=== PATIENT | female | born 1935 | race Caucasian/White ===

== ENCOUNTER → 2016-06-07 | Outpatient (CLI) | payer MEDICARE, OTHER ==
[2016-06-07 09:54] LABS: ALANINE AMINOTRANSFERASE 23 U/L (9-52); ALBUMIN 4.1 g/dL (3.5-5.0); ALKALINE PHOSPHATASE 60 U/L (38-126); ANION GAP 13 (5-19); ASPARTATE AMINO TRANSFERASE 25 U/L (14-36); BILIRUBIN,TOTAL 0.6 mg/dL (0.2-1.3); BLOOD UREA NITROGEN 27 mg/dL (7-20); CALCIUM 9.4 mg/dL (8.4-10.2); CARBON DIOXIDE 23 mmol/L (22-30); CHLORIDE 106 mmol/L (98-107); CHOLESTEROL 159.12 mg/dL (0-200); CREATININE RESULT 1.66 mg/dL (0.52-1.25); Direct HDL 33 mg/dL (>40); GLUCOSE 99 mg/dL (75-110); POTASSIUM 4.8 mmol/L (3.6-5.0); SODIUM 142.3 mmol/L (137-145); TOTAL PROTEIN 6.6 g/dL (6.3-8.2); TRIGLYCERIDES 299 mg/dL (<150)
[2016-06-07 10:05] LABS: DIRECT LDL 61 mg/dL (<100)
[2016-06-07 10:07] LABS: VLDL CHOLESTEROL 59.8 mg/dL (10-31)
== END ==
LOC: OD 08:20
PROVIDERS: ATTEND Internal Medicine
DX: I48.0 Paroxysmal atrial fibrillation (principal); Z95.1 Presence of aortocoronary bypass graft; I34.0 Nonrheumatic mitral (valve) insufficiency; E78.4 Other hyperlipidemia; I36.1 Nonrheumatic tricuspid (valve) insufficiency; J45.998 Other asthma; J44.9 Chronic obstructive pulmonary disease, unspecified; I12.9 Hypertensive chronic kidney disease with stage 1 through stage 4 chronic kidney disease, or unspecified chronic kidney disease; N18.9 Chronic kidney disease, unspecified; R01.1 Cardiac murmur, unspecified; D50.8 Other iron deficiency anemias; M10.9 Gout, unspecified; E03.9 Hypothyroidism, unspecified; Z79.899 Other long term (current) drug therapy
CPT/HCPCS: 36415; 80053; 80061

== ENCOUNTER → 2016-06-26 | Outpatient (CLI) | payer MEDICARE, OTHER ==
[2016-06-26 09:44] LABS: APPEARANCE,URINE CLEAR; BILIRUBIN,URINE NEGATIVE (NEGATIVE); GLUCOSE, URINE NEGATIVE (NEGATIVE); KETONES,URINE NEGATIVE (NEGATIVE); LEUKOCYTE ESTERASE,URINE SMALL (NEGATIVE); NITRITE,URINE NEGATIVE (NEGATIVE); PROTEIN,URINE NEGATIVE (NEGATIVE); URINE SPECIFIC GRAVITY 1.011; UROBILINOGEN,URINE NEGATIVE mg/dL (<2.0)
[2016-06-26 09:54] LABS: HEMATOCRIT 34.2 % (36.0-47.0); HEMOGLOBIN 10.8 g/dL (12.0-15.5); HGB HCT DIFFERENCE -1.8; MEAN CORPUSCULAR HEMOGLOBIN 28.8 pg (27.0-33.4); MEAN CORPUSCULAR HGB CONC 31.5 g/dL (32.0-36.0); MEAN CORPUSCULAR VOLUME 91 fl (80-97); RED BLOOD COUNT 3.75 10^6/uL (3.72-5.28); WHITE BLOOD COUNT 4.2 10^3/uL (4.0-10.5)
[2016-06-26 10:25] LABS: ANION GAP 13 (5-19); BLOOD UREA NITROGEN 28 mg/dL (7-20); CALCIUM 9.5 mg/dL (8.4-10.2); CARBON DIOXIDE 25 mmol/L (22-30); CHLORIDE 105 mmol/L (98-107); CREATININE RESULT 1.67 mg/dL (0.52-1.25); GLUCOSE 98 mg/dL (75-110); POTASSIUM 4.5 mmol/L (3.6-5.0)
== END ==
LOC: OD 08:20
PROVIDERS: ATTEND Internal Medicine Nephrology
DX: I12.9 Hypertensive chronic kidney disease with stage 1 through stage 4 chronic kidney disease, or unspecified chronic kidney disease (principal); N18.3 Chronic kidney disease, stage 3 (moderate); E87.5 Hyperkalemia
CPT/HCPCS: 36415; 80048; 81001; 85027

== ENCOUNTER → 2016-07-26 | Outpatient (CLI) | payer MEDICARE, OTHER ==
[2016-07-26 10:37] LABS: HEMATOCRIT 31.7 % (36.0-47.0); HEMOGLOBIN 10.6 g/dL (12.0-15.5); HGB HCT DIFFERENCE 0.1; MEAN CORPUSCULAR HEMOGLOBIN 29.6 pg (27.0-33.4); MEAN CORPUSCULAR HGB CONC 33.4 g/dL (32.0-36.0); MEAN CORPUSCULAR VOLUME 88 fl (80-97); RED BLOOD COUNT 3.58 10^6/uL (3.72-5.28); RED CELL DISTRIBUTION WIDTH 16.1 % (11.5-14.0); WHITE BLOOD COUNT 4.8 10^3/uL (4.0-10.5)
[2016-07-26 10:41] LABS: MAGNESIUM 2.1 mg/dL (1.6-2.3); PHOSPHORUS 4.4 mg/dL (2.5-4.5)
[2016-07-26 11:12] LABS: THYROID STIMULATING HORMONE 2.96 uIU/mL (0.47-4.68)
[2016-07-27 08:36] LABS: PTH INTACT 78 pg/mL (15-65)
[2016-07-27 15:38] LABS: A/G RATIO 1.2 (0.7-1.7); ALBUMIN 2 3.5 g/dL (2.9-4.4); ALPHA-1-GLOBULIN 2 0.2 g/dL (0.0-0.4); GAMMA GLOBULIN 0.9 g/dL (0.4-1.8); PROTEIN TOTAL SERUM 6.4 g/dL (6.0-8.5)
== END ==
LOC: OD 08:21
PROVIDERS: ATTEND Internal Medicine Nephrology
DX: E03.9 Hypothyroidism, unspecified (principal); N18.3 Chronic kidney disease, stage 3 (moderate); D64.9 Anemia, unspecified; E87.5 Hyperkalemia; M10.9 Gout, unspecified
CPT/HCPCS: 36415; 82728; 83540; 83550; 83735; 83970; 84100; 84165; 84439; 84443; 85027

== ENCOUNTER → 2016-12-04 | Outpatient (CLI) | payer MEDICARE, OTHER ==
[2016-12-04 09:15] LABS: HEMATOCRIT 36.5 % (36.0-47.0); HEMOGLOBIN 12.1 g/dL (12.0-15.5); HGB HCT DIFFERENCE -0.2; MEAN CORPUSCULAR HEMOGLOBIN 30.5 pg (27.0-33.4); MEAN CORPUSCULAR HGB CONC 33.2 g/dL (32.0-36.0); MEAN CORPUSCULAR VOLUME 92 fl (80-97); RED BLOOD COUNT 3.97 10^6/uL (3.72-5.28); WHITE BLOOD COUNT 5.1 10^3/uL (4.0-10.5)
[2016-12-04 09:25] LABS: APPEARANCE,URINE CLEAR; BILIRUBIN,URINE NEGATIVE (NEGATIVE); GLUCOSE, URINE NEGATIVE (NEGATIVE); KETONES,URINE NEGATIVE (NEGATIVE); LEUKOCYTE ESTERASE,URINE NEGATIVE (NEGATIVE); NITRITE,URINE NEGATIVE (NEGATIVE); PROTEIN,URINE NEGATIVE (NEGATIVE); UROBILINOGEN,URINE NEGATIVE mg/dL (<2.0)
[2016-12-04 09:31] LABS: CHOLESTEROL 147.55 mg/dL (0-200); Direct HDL 31 mg/dL (>40); TRIGLYCERIDES 278 mg/dL (<150)
[2016-12-04 09:32] LABS: ANION GAP 12 (5-19); BLOOD UREA NITROGEN 38 mg/dL (7-20); CALCIUM 9.6 mg/dL (8.4-10.2); CARBON DIOXIDE 23 mmol/L (22-30); CHLORIDE 106 mmol/L (98-107); CREATININE RESULT 1.88 mg/dL (0.52-1.25); GLUCOSE 105 mg/dL (75-110); POTASSIUM 4.9 mmol/L (3.6-5.0)
[2016-12-04 09:42] LABS: DIRECT LDL 52 mg/dL (<100)
[2016-12-04 09:49] LABS: VLDL CHOLESTEROL 55.6 mg/dL (10-31)
== END ==
LOC: OD 08:05
PROVIDERS: ATTEND Internal Medicine Nephrology
DX: I12.9 Hypertensive chronic kidney disease with stage 1 through stage 4 chronic kidney disease, or unspecified chronic kidney disease (principal); N18.3 Chronic kidney disease, stage 3 (moderate); M10.00 Idiopathic gout, unspecified site; D64.9 Anemia, unspecified; I48.0 Paroxysmal atrial fibrillation; Z95.1 Presence of aortocoronary bypass graft; I25.5 Ischemic cardiomyopathy; I34.0 Nonrheumatic mitral (valve) insufficiency; D50.8 Other iron deficiency anemias; E03.9 Hypothyroidism, unspecified; E78.5 Hyperlipidemia, unspecified; I36.1 Nonrheumatic tricuspid (valve) insufficiency; J45.998 Other asthma; J44.9 Chronic obstructive pulmonary disease, unspecified; M10.9 Gout, unspecified; Z79.899 Other long term (current) drug therapy; R01.1 Cardiac murmur, unspecified
CPT/HCPCS: 36415; 80048; 80061; 81001; 85027

== ENCOUNTER → 2017-02-21 | Outpatient (CLI) | payer MEDICARE, OTHER ==
--- NOTE | 2017-02-21 17:05 | WOMENS IMAGING REPORT ---
EXAM DESCRIPTION: 3D SCREENING MAMMO BILAT COMPLETED DATE/TIME: 02/21/2017 11:20 am REASON FOR STUDY: SCREENING MAMMO Z12.31 ENCNTR SCREEN MAMMOGRAM FOR MALIGNANT NEOPLASM OF CARYL COMPARISON: Multiple since 2008 TECHNIQUE: Standard craniocaudal and mediolateral oblique views of each breast recorded using digita l acquisition and breast tomosynthesis. LIMITATIONS: None. FINDINGS: Findings present which are benign by mammographic criteria. No suspicious masses, calcifi cations or architectural distortion. Pertinent benign findings: Stable benign bilateral breast calcifications Read with the assistance of CAD. .[facility] - R2 Cenova Version 1.3 .[facility] - R2 Cenova Version 1.3 .[facility] - R2 Cenova Version 2.4 .[facility] [place] R2 Cenova Version 2.4 .[facility] - R2 Hollock Maker Version 9.2 Benign mammographic findings may include one or more of the following: Smooth masses, popcorn/rim/co arse calcifications, asymmetries, post-procedure changes, and lesions with long-standing stability. IMPRESSION: BENIGN MAMMOGRAPHIC FINDINGS. BIRADS 2 BREAST DENSITY: c. The breasts are heterogeneously dense, which may obscure small masses. BIRAD: 2 BENIGN FINDING(S) RECOMMENDATION: RECOMMENDATION: ROUTINE SCREENING Please continue yearly bilateral screening tomosynthesis in February 2018 COMMENT: The patient has been notified of the results by letter per SA requirements. Additional no tification policies are in place for contacting patient with suspicious or incomplete findings. Quality ID #[id number]: The [employer] recommends an annual screening mammogram for women aged 40 years or over. This facility utilizes a reminder system to ensure that all patients receive reminder letters, and/or direct phone calls for appointments. This includes reminders for routine scr eening mammograms, diagnostic mammograms, or other Breast Imaging Interventions when appropriate. Th is patient will be placed in the appropriate reminder system. The [employer] (ACR) has developed recommendations for screening MRI of the breast s in certain patient populations, to be used in conjunction with mammography. Breast MRI surveillanc e may be appropriate for women with more than 20% lifetime risk of developing breast cancer as deter mined by genetic testing, significant family history of the disease, or history of mantle radiation f or Hodgkins Disease. ACR Practice Guidelines 2008. DBT Technology DBT is a type of tomographic mammography. With conventional mammography, overlapping breast tissue ma y make lesions difficult to detect, even with good compression. DBT uses an x-ray tube that rotates a round the breast, taking images at different angles. These images are then combined to create thin sl ices of the breast that the radiologist can view as a 3D reconstruction. The [employer] unit can perform full-field digital mammograms (2D imaging); or DBT (3D imaging); or both, in a combination mode that quickly performs both the mammogram and the tomosynthesis scan while the breast is still compressed. PQRS 6045F: Fluoroscopic imaging is not utilized for breast tomosynthesis. TECHNICAL DOCUMENTATION: FINDING NUMBER: (1) ASSESSMENT: (1) JOB ID: [id number] [employer]- All Rights Reserved
== END ==
LOC: WI 10:53
PROVIDERS: ATTEND Family Medicine
DX: Z12.31 Encounter for screening mammogram for malignant neoplasm of breast (principal)
CPT/HCPCS: 77063; G0202; 77067

== ENCOUNTER → 2017-06-01 | Outpatient (CLI) | payer MEDICARE, OTHER ==
[2017-06-01 09:13] LABS: APPEARANCE,URINE CLEAR; BILIRUBIN,URINE NEGATIVE (NEGATIVE); COLOR,URINE YELLOW; GLUCOSE, URINE NEGATIVE (NEGATIVE); KETONES,URINE NEGATIVE (NEGATIVE); LEUKOCYTE ESTERASE,URINE NEGATIVE (NEGATIVE); NITRITE,URINE NEGATIVE (NEGATIVE); PROTEIN,URINE NEGATIVE (NEGATIVE); URINE SPECIFIC GRAVITY 1.008; UROBILINOGEN,URINE NEGATIVE mg/dL (<2.0)
[2017-06-01 09:35] LABS: ALANINE AMINOTRANSFERASE 27 U/L (9-52); ALKALINE PHOSPHATASE 76 U/L (38-126); ANION GAP 12 (5-19); ASPARTATE AMINO TRANSFERASE 28 U/L (14-36); BILIRUBIN,DIRECT 0.3 mg/dL (0.0-0.4); BILIRUBIN,TOTAL 0.5 mg/dL (0.2-1.3); BLOOD UREA NITROGEN 24 mg/dL (7-20); CALCIUM 9.8 mg/dL (8.4-10.2); CARBON DIOXIDE 26 mmol/L (22-30); CHLORIDE 105 mmol/L (98-107); CHOLESTEROL 139.56 mg/dL (0-200); GLUCOSE 103 mg/dL (75-110); POTASSIUM 4.6 mmol/L (3.6-5.0); SODIUM 143.3 mmol/L (137-145); TOTAL PROTEIN 6.5 g/dL (6.3-8.2); TRIGLYCERIDES 210 mg/dL (<150)
[2017-06-01 09:45] LABS: DIRECT LDL 59 mg/dL (<100)
[2017-06-01 10:03] LABS: ANION GAP 12 (5-19); BLOOD UREA NITROGEN 24 mg/dL (7-20); CALCIUM 9.8 mg/dL (8.4-10.2); CARBON DIOXIDE 26 mmol/L (22-30); CHLORIDE 105 mmol/L (98-107); GLUCOSE 103 mg/dL (75-110); POTASSIUM 4.6 mmol/L (3.6-5.0); SODIUM 143.3 mmol/L (137-145)
[2017-06-01 12:22] LABS: HEMATOCRIT 36.5 % (36.0-47.0); HEMOGLOBIN 12.2 g/dL (12.0-15.5); MEAN CORPUSCULAR HEMOGLOBIN 30.8 pg (27.0-33.4); MEAN CORPUSCULAR HGB CONC 33.3 g/dL (32.0-36.0); MEAN CORPUSCULAR VOLUME 93 fl (80-97); PLATELET COUNT 225 10^3/uL (150-450); RED BLOOD COUNT 3.95 10^6/uL (3.72-5.28); RED CELL DISTRIBUTION WIDTH 15.9 % (11.5-14.0); WHITE BLOOD COUNT 4.7 10^3/uL (4.0-10.5)
== END ==
LOC: OD 08:01
PROVIDERS: ATTEND Internal Medicine Nephrology
DX: I12.9 Hypertensive chronic kidney disease with stage 1 through stage 4 chronic kidney disease, or unspecified chronic kidney disease (principal); N18.3 Chronic kidney disease, stage 3 (moderate); D64.9 Anemia, unspecified; E03.9 Hypothyroidism, unspecified; E87.5 Hyperkalemia; E78.2 Mixed hyperlipidemia; M10.00 Idiopathic gout, unspecified site
CPT/HCPCS: 36415; 80048; 80053; 80061; 81001; 83036; 84443; 84550; 85027

== ENCOUNTER → 2017-08-07 | Outpatient (CLI) | payer MEDICARE, OTHER ==
--- NOTE | 2017-08-07 15:56 | XCELERA REPORT ---
[address] [address] Lower Extremity Arterial Evaluation Name: TY JJ Age: 81 yrs Gender: Female : 1935 Patient Status: Outpatient Patient Location: Study Date: 08/07/2017 01:53 PM Procedure: A color flow and duplex scan of the lower extremity arteries was performed bilaterally with velocity and waveform anaylsis. Ankle brachial indicies performed. Reason For Study: PVD Ordering Physician: DURAN QUICK Performed By: Linda Ventura Measurements and Calculations Right Left VACUUM CLOSING MACHINE OPERATOR PSV 181.6 167.6 cm/sec Prox PFA PSV -133.4 108.1 cm/sec Prox SFA PSV 133.4 110.0 cm/sec Mid SFA PSV -125.7 -88.2 cm/sec Dist SFA PSV -123.8 -115.2 cm/sec Prox Pop A PSV 65.2 68.4 cm/sec Dist VIELKA PSV 79.4 83.3 cm/sec Dist BULK SYSTEM OPERATOR PSV 63.6 91.0 cm/sec Roberth Pedis PSV 71.9 73.5 cm/sec Right Side Arterial Evaluation Normal velocity and triphasic waveforms noted from the Common Femoral artery to the infregeniculate vessels. Biphasic in the Deep Femoral artery. 0-19% stenosis at the Deep Femoral artery. Ankle Brachial index is 0.94. Left Side Arterial Evaluation Normal velocity and biphasic waveforms noted from the Common Femoral artery to the infrageniculate vessels. 0-19% stenosis at the inflow Aorto Femoral. Ankle Brachial index is 0.84. Interpretation Summary Mild hemodynamically significant lesions in the bilateral lower extremities, on duplex imaging, at rest. : DURAN QUICK [place]
== END ==
LOC: SP 13:34
PROVIDERS: ATTEND Family Medicine
DX: I73.9 Peripheral vascular disease, unspecified (principal); M79.671 Pain in right foot; M79.672 Pain in left foot
CPT/HCPCS: 93925

== ENCOUNTER → 2017-12-21 | Outpatient (CLI) | payer MEDICARE, OTHER ==
[2017-12-21 08:27] LABS: HEMATOCRIT 33.8 % (36.0-47.0); HEMOGLOBIN 11.5 g/dL (12.0-15.5); MEAN CORPUSCULAR HEMOGLOBIN 30.9 pg (27.0-33.4); MEAN CORPUSCULAR HGB CONC 34.1 g/dL (32.0-36.0); MEAN CORPUSCULAR VOLUME 91 fl (80-97); PLATELET COUNT 215 10^3/uL (150-450); RED BLOOD COUNT 3.74 10^6/uL (3.72-5.28); RED CELL DISTRIBUTION WIDTH 16.6 % (11.5-14.0); WHITE BLOOD COUNT 4.5 10^3/uL (4.0-10.5)
[2017-12-21 08:38] LABS: APPEARANCE,URINE CLEAR; BILIRUBIN,URINE NEGATIVE (NEGATIVE); COLOR,URINE STRAW; GLUCOSE, URINE NEGATIVE (NEGATIVE); KETONES,URINE NEGATIVE (NEGATIVE); LEUKOCYTE ESTERASE,URINE NEGATIVE (NEGATIVE); NITRITE,URINE NEGATIVE (NEGATIVE); PROTEIN,URINE NEGATIVE (NEGATIVE); URINE SPECIFIC GRAVITY 1.006; UROBILINOGEN,URINE NEGATIVE mg/dL (<2.0)
[2017-12-21 08:58] LABS: ANION GAP 11 (5-19); BLOOD UREA NITROGEN 30 mg/dL (7-20); CALCIUM 9.5 mg/dL (8.4-10.2); CARBON DIOXIDE 26 mmol/L (22-30); CHLORIDE 106 mmol/L (98-107); GLUCOSE 109 mg/dL (75-110); PHOSPHORUS 4.6 mg/dL (2.5-4.5); POTASSIUM 4.4 mmol/L (3.6-5.0); SODIUM 142.7 mmol/L (137-145)
== END ==
LOC: OD 07:58
PROVIDERS: ATTEND Physician Assistant Medical
DX: I12.9 Hypertensive chronic kidney disease with stage 1 through stage 4 chronic kidney disease, or unspecified chronic kidney disease (principal); N18.4 Chronic kidney disease, stage 4 (severe); E87.5 Hyperkalemia
CPT/HCPCS: 36415; 80048; 81001; 83970; 84100; 85027

== ENCOUNTER → 2018-03-04 | Outpatient (CLI) | payer MEDICARE, OTHER ==
--- NOTE | 2018-03-04 16:23 | WOMENS IMAGING REPORT ---
EXAM DESCRIPTION: 3D SCREENING MAMMO BILAT COMPLETED DATE/TIME: 03/04/2018 2:13 pm REASON FOR STUDY: BILATERAL SCREENING MAMMO 3D/Z12.31 Z12.31 ENCNTR SCREEN MAMMOGRAM FOR MALIGNANT NEOPLASM OF CARYL COMPARISON: [id number] TECHNIQUE: Standard craniocaudal and mediolateral oblique views of each breast recorded using digita l acquisition and breast tomosynthesis. LIMITATIONS: None. FINDINGS: No masses, calcifications or architectural distortion. No areas of suspicion. Read with the assistance of CAD. .[facility] - R2 Cenova Version 1.3 .[facility] Imaging - R2 Cenova Version 1.3 .[facility] - R2 Cenova Version 2.4 .[facility] - R2 Cenova Version 2.4 .[facility] - R2 Residential Roofer Version 9.2 IMPRESSION: NORMAL MAMMOGRAM. BIRADS 1. BREAST DENSITY: c. The breasts are heterogeneously dense, which may obscure small masses. BIRAD: 1 NEGATIVE RECOMMENDATION: ROUTINE SCREENING COMMENT: The patient has been notified of the results by letter per SA requirements. Additional no tification policies are in place for contacting patient with suspicious or incomplete findings. Quality ID #[id number]: The [employer] recommends an annual screening mammogram for women aged 40 years or over. This facility utilizes a reminder system to ensure that all patients receive reminder letters, and/or direct phone calls for appointments. This includes reminders for routine scr eening mammograms, diagnostic mammograms, or other Breast Imaging Interventions when appropriate. Th is patient will be placed in the appropriate reminder system. The [employer] (ACR) has developed recommendations for screening MRI of the breast s in certain patient populations, to be used in conjunction with mammography. Breast MRI surveillanc e may be appropriate for women with more than 20% lifetime risk of developing breast cancer as deter mined by genetic testing, significant family history of the disease, or history of mantle radiation f or Hodgkins Disease. ACR Practice Guidelines 2008. DBT Technology DBT is a type of tomographic mammography. With conventional mammography, overlapping breast tissue ma y make lesions difficult to detect, even with good compression. DBT uses an x-ray tube that rotates a round the breast, taking images at different angles. These images are then combined to create thin sl ices of the breast that the radiologist can view as a 3D reconstruction. The [employer] unit can perform full-field digital mammograms (2D imaging); or DBT (3D imaging); or both, in a combination mode that quickly performs both the mammogram and the tomosynthesis scan while the breast is still compressed. PQRS 6045F: Fluoroscopic imaging is not utilized for breast tomosynthesis. TECHNICAL DOCUMENTATION: FINDING NUMBER: (1) ASSESSMENT: (1) JOB ID: [id number] [employer]- All Rights Reserved Reading location - IP/workstation name: [email or web address]-RR2
== END ==
LOC: WI 13:46
PROVIDERS: ATTEND Family Medicine
DX: Z12.31 Encounter for screening mammogram for malignant neoplasm of breast (principal)
CPT/HCPCS: 77063; 77067

== ENCOUNTER → 2018-06-03 | Outpatient (CLI) | payer MEDICARE, OTHER ==
[2018-06-03 08:45] LABS: HEMATOCRIT 33.6 % (36.0-47.0); HEMOGLOBIN 11.3 g/dL (12.0-15.5); MEAN CORPUSCULAR HEMOGLOBIN 30.7 pg (27.0-33.4); MEAN CORPUSCULAR HGB CONC 33.8 g/dL (32.0-36.0); MEAN CORPUSCULAR VOLUME 91 fl (80-97); PLATELET COUNT 220 10^3/uL (150-450); RED CELL DISTRIBUTION WIDTH 16.9 % (11.5-14.0); WHITE BLOOD COUNT 4.8 10^3/uL (4.0-10.5)
[2018-06-03 08:47] LABS: APPEARANCE,URINE CLEAR; BILIRUBIN,URINE NEGATIVE (NEGATIVE); COLOR,URINE YELLOW; GLUCOSE, URINE NEGATIVE (NEGATIVE); KETONES,URINE NEGATIVE (NEGATIVE); LEUKOCYTE ESTERASE,URINE NEGATIVE (NEGATIVE); NITRITE,URINE NEGATIVE (NEGATIVE); PROTEIN,URINE NEGATIVE (NEGATIVE); URINE SPECIFIC GRAVITY 1.011; UROBILINOGEN,URINE NEGATIVE mg/dL (<2.0)
[2018-06-03 09:35] LABS: ALANINE AMINOTRANSFERASE 30 U/L (9-52); ALBUMIN 3.9 g/dL (3.5-5.0); ALKALINE PHOSPHATASE 130 U/L (38-126); ANION GAP 8 (5-19); ASPARTATE AMINO TRANSFERASE 42 U/L (14-36); BILIRUBIN,DIRECT 0.3 mg/dL (0.0-0.4); BILIRUBIN,TOTAL 0.5 mg/dL (0.2-1.3); BLOOD UREA NITROGEN 33 mg/dL (7-20); CALCIUM 9.4 mg/dL (8.4-10.2); CARBON DIOXIDE 25 mmol/L (22-30); CHLORIDE 107 mmol/L (98-107); CHOLESTEROL 140.48 mg/dL (0-200); DIRECT LDL 69 mg/dL (<100); GLUCOSE 103 mg/dL (75-110); POTASSIUM 4.6 mmol/L (3.6-5.0); TOTAL PROTEIN 6.5 g/dL (6.3-8.2); TRIGLYCERIDES 177 mg/dL (<150); VLDL CHOLESTEROL 35.4 mg/dL (10-31)
[2018-06-03 10:06] LABS: ANION GAP 8 (5-19); BLOOD UREA NITROGEN 33 mg/dL (7-20); CALCIUM 9.4 mg/dL (8.4-10.2); CARBON DIOXIDE 25 mmol/L (22-30); CHLORIDE 107 mmol/L (98-107); GLUCOSE 103 mg/dL (75-110); PHOSPHORUS 4.5 mg/dL (2.5-4.5); POTASSIUM 4.6 mmol/L (3.6-5.0)
== END ==
LOC: OD 08:08
PROVIDERS: ATTEND Physician Assistant Medical
DX: G62.9 Polyneuropathy, unspecified (principal); E87.5 Hyperkalemia; I12.9 Hypertensive chronic kidney disease with stage 1 through stage 4 chronic kidney disease, or unspecified chronic kidney disease; N18.3 Chronic kidney disease, stage 3 (moderate); D64.9 Anemia, unspecified; E78.49 Other hyperlipidemia; I48.0 Paroxysmal atrial fibrillation; Z95.1 Presence of aortocoronary bypass graft; I25.2 Old myocardial infarction; I34.0 Nonrheumatic mitral (valve) insufficiency; E03.9 Hypothyroidism, unspecified; I36.1 Nonrheumatic tricuspid (valve) insufficiency; J44.9 Chronic obstructive pulmonary disease, unspecified; J45.998 Other asthma; M10.9 Gout, unspecified; R01.1 Cardiac murmur, unspecified; Z79.899 Other long term (current) drug therapy
CPT/HCPCS: 36415; 80048; 80053; 80061; 81001; 82607; 83970; 84100; 84443; 84550; 85027

== ENCOUNTER → 2018-12-03 | Outpatient (CLI) | payer MEDICARE, OTHER ==
[2018-12-03 08:48] LABS: HEMOGLOBIN 11.3 g/dL (12.0-15.5); MEAN CORPUSCULAR HGB CONC 33.4 g/dL (32.0-36.0); MEAN CORPUSCULAR VOLUME 90 fl (80-97); PLATELET COUNT 226 10^3/uL (150-450); RED BLOOD COUNT 3.78 10^6/uL (3.72-5.28); RED CELL DISTRIBUTION WIDTH 16.6 % (11.5-14.0); WHITE BLOOD COUNT 5.1 10^3/uL (4.0-10.5)
[2018-12-03 09:10] LABS: ALANINE AMINOTRANSFERASE 22 U/L (9-52); ALBUMIN 3.9 g/dL (3.5-5.0); ALKALINE PHOSPHATASE 84 U/L (38-126); ANION GAP 7 (5-19); ASPARTATE AMINO TRANSFERASE 29 U/L (14-36); BILIRUBIN,DIRECT 0.3 mg/dL (0.0-0.4); BILIRUBIN,TOTAL 0.4 mg/dL (0.2-1.3); BLOOD UREA NITROGEN 28 mg/dL (7-20); CALCIUM 9.3 mg/dL (8.4-10.2); CARBON DIOXIDE 27 mmol/L (22-30); CHLORIDE 105 mmol/L (98-107); CHOLESTEROL 138.33 mg/dL (0-200); GLUCOSE 102 mg/dL (75-110); POTASSIUM 4.5 mmol/L (3.6-5.0); SODIUM 139.1 mmol/L (137-145); TOTAL PROTEIN 6.5 g/dL (6.3-8.2); TRIGLYCERIDES 204 mg/dL (<150)
[2018-12-03 09:10] LABS: APPEARANCE,URINE CLEAR; BILIRUBIN,URINE NEGATIVE (NEGATIVE); COLOR,URINE YELLOW; GLUCOSE, URINE NEGATIVE (NEGATIVE); KETONES,URINE NEGATIVE (NEGATIVE); LEUKOCYTE ESTERASE,URINE NEGATIVE (NEGATIVE); NITRITE,URINE NEGATIVE (NEGATIVE); PROTEIN,URINE NEGATIVE (NEGATIVE); URINE SPECIFIC GRAVITY 1.013; UROBILINOGEN,URINE NEGATIVE mg/dL (<2.0)
[2018-12-03 09:12] LABS: ANION GAP 8 (5-19); BLOOD UREA NITROGEN 28 mg/dL (7-20); CALCIUM 9.3 mg/dL (8.4-10.2); CARBON DIOXIDE 27 mmol/L (22-30); CHLORIDE 105 mmol/L (98-107); GLUCOSE 102 mg/dL (75-110); PHOSPHORUS 4.2 mg/dL (2.5-4.5); POTASSIUM 4.4 mmol/L (3.6-5.0)
[2018-12-03 09:21] LABS: DIRECT LDL 63 mg/dL (<100)
[2018-12-03 09:23] LABS: VLDL CHOLESTEROL 40.8 mg/dL (10-31)
== END ==
LOC: OD 08:12
PROVIDERS: ATTEND Internal Medicine
DX: I12.9 Hypertensive chronic kidney disease with stage 1 through stage 4 chronic kidney disease, or unspecified chronic kidney disease (principal); N18.4 Chronic kidney disease, stage 4 (severe); E87.5 Hyperkalemia; D64.9 Anemia, unspecified; M10.00 Idiopathic gout, unspecified site; I25.2 Old myocardial infarction
CPT/HCPCS: 36415; 80053; 80061; 81001; 83970; 84100; 85027

== ENCOUNTER → 2019-03-05 | Outpatient (CLI) | payer MEDICARE, OTHER ==
--- NOTE | 2019-03-05 14:14 | WOMENS IMAGING REPORT ---
EXAM DESCRIPTION: 3D SCREENING MAMMO BILAT COMPLETED DATE/TIME: 03/05/2019 1:26 pm REASON FOR STUDY: Z12.31 ENCOUNTER FOR SCREENING MAMMOGRAM FOR MALIGNANT NEOPLASM OF BREAST Z12.31 ENCNTR SCREEN MAMMOGRAM FOR MALIGNANT NEOPLASM OF CARYL COMPARISON: 2014 and subsequent. EXAM PARAMETERS: Views: Standard craniocaudal and mediolateral oblique views of each breast recorded using digital acquisition and breast tomosynthesis. Read with the assistance of CAD. .[facility] - [employer] Version 9.2 LIMITATIONS: None. FINDINGS: No suspicious masses, suspicious calcifications or architectural distortion. No areas of c oncern. IMPRESSION: NEGATIVE MAMMOGRAM. BIRADS 1. BREAST DENSITY: c. The breasts are heterogeneously dense, which may obscure small masses. BIRAD: ASSESSMENT: 1 NEGATIVE RECOMMENDATION: ROUTINE SCREENING COMMENT: The patient has been notified of the results by letter per MQSA requirements. Additional no tification policies are in place for contacting patient with suspicious or incomplete findings. Quality ID #[id number]: The [employer] recommends an annual screening mammogram for women aged 40 years or over. This facility utilizes a reminder system to ensure that all patients receive reminder letters, and/or direct phone calls for appointments. This includes reminders for routine scr eening mammograms, diagnostic mammograms, or other Breast Imaging Interventions when appropriate. Th is patient will be placed in the appropriate reminder system. TECHNICAL DOCUMENTATION: FINDING NUMBER: (1) ASSESSMENT: (1) JOB ID: [id number] [employer]- All Rights Reserved Reading location - IP/workstation name: [email or web address]
== END ==
LOC: WI 13:02
PROVIDERS: ATTEND Family Medicine
DX: Z12.31 Encounter for screening mammogram for malignant neoplasm of breast (principal)
CPT/HCPCS: 77063; 77067

== ENCOUNTER → 2019-06-20 | Outpatient (CLI) | payer MEDICARE, OTHER ==
[2019-06-20 09:30] LABS: ABSOLUTE EOSINOPHILS # (AUTO) 0.2 10^3/uL (0.0-0.6); ABSOLUTE LYMPHOCYTES (AUTO) 1.8 10^3/uL (0.5-4.7); ABSOLUTE MONOCYTES (AUTO) 0.4 10^3/uL (0.1-1.4); ABSOLUTE NEUT (AUTO) 2.9 10^3/uL (1.7-8.2); BASOPHILS % (AUTO) 0.8 % (0-2); EOSINOPHILS % (AUTO) 3.8 % (0-6); HEMATOCRIT 35.4 % (36.0-47.0); HEMOGLOBIN 11.8 g/dL (12.0-15.5); LYMPHOCYTES % (AUTO) 33.6 % (13-45); MEAN CORPUSCULAR HEMOGLOBIN 30.1 pg (27.0-33.4); MEAN CORPUSCULAR HGB CONC 33.4 g/dL (32.0-36.0); MEAN CORPUSCULAR VOLUME 90 fl (80-97); MONOCYTES % (AUTO) 6.9 % (3-13); PLATELET COUNT 229 10^3/uL (150-450); RED BLOOD COUNT 3.93 10^6/uL (3.72-5.28); RED CELL DISTRIBUTION WIDTH 16.9 % (11.5-14.0); SEGMENTED NEUTROPHILS % (AUTO) 54.9 % (42-78); TOTAL CELLS COUNTED % (AUTO) 100 %; WHITE BLOOD COUNT 5.2 10^3/uL (4.0-10.5)
[2019-06-20 09:35] LABS: APPEARANCE,URINE CLEAR; BILIRUBIN,URINE NEGATIVE (NEGATIVE); COLOR,URINE STRAW; GLUCOSE, URINE NEGATIVE (NEGATIVE); KETONES,URINE NEGATIVE (NEGATIVE); LEUKOCYTE ESTERASE,URINE NEGATIVE (NEGATIVE); NITRITE,URINE NEGATIVE (NEGATIVE); PROTEIN,URINE NEGATIVE (NEGATIVE); URINE SPECIFIC GRAVITY 1.008; UROBILINOGEN,URINE NEGATIVE mg/dL (<2.0)
[2019-06-20 09:56] LABS: ANION GAP 10 (5-19); BLOOD UREA NITROGEN 36 mg/dL (7-20); CALCIUM 9.4 mg/dL (8.4-10.2); CARBON DIOXIDE 25 mmol/L (22-30); CHLORIDE 103 mmol/L (98-107); GLUCOSE 100 mg/dL (75-110); PHOSPHORUS 4.6 mg/dL (2.5-4.5); POTASSIUM 4.7 mmol/L (3.6-5.0)
== END ==
LOC: OD 08:41
PROVIDERS: ATTEND Physician Assistant Medical
DX: I12.9 Hypertensive chronic kidney disease with stage 1 through stage 4 chronic kidney disease, or unspecified chronic kidney disease (principal); N18.3 Chronic kidney disease, stage 3 (moderate); E87.5 Hyperkalemia; D64.9 Anemia, unspecified; M10.00 Idiopathic gout, unspecified site
CPT/HCPCS: 36415; 80048; 81001; 83970; 84100; 85025

== ENCOUNTER → 2019-07-02 | Outpatient (CLI) | payer MEDICARE, OTHER | LOC: OD 08:26 | PROVIDERS: ATTEND Family Medicine | DX: E03.9 Hypothyroidism, unspecified (principal); E78.2 Mixed hyperlipidemia; I10 Essential (primary) hypertension; Z79.899 Other long term (current) drug therapy | CPT/HCPCS: 36415; 84443 ==

== ENCOUNTER → 2019-07-04 | Outpatient (CLI) | payer MEDICARE, OTHER ==
--- NOTE | 2019-07-04 14:49 | WOMENS IMAGING REPORT ---
EXAM DESCRIPTION: RETROPERITONEAL U/S COMPLETED DATE/TIME: 07/04/2019 2:04 pm REASON FOR STUDY: N17.9 ACUTE KIDNEY FAILURE, UNSPECIFIED N18.3 CHRONIC KIDNEY DISEASE, STAGE N17.9 ACUTE KIDNEY FAILURE, UNSPECIFIED N18.3 CHRONIC KIDNEY DISEASE, STAGE 3 (MODERATE) COMPARISON: 01/12/2012 TECHNIQUE: Dynamic and static grayscale images acquired of the kidneys and bladder and recorded on P ACS. Additional selected color Doppler and spectral images recorded. LIMITATIONS: None. FINDINGS: RIGHT KIDNEY: Normal size, 9.8 cm. Cortical thinning. Increased echogenicity. No jacqueline id or suspicious masses. No hydronephrosis. No calcifications. LEFT KIDNEY: Normal size, 9.9 cm. Cortical thinning. Increased echogenicity. No solid or suspic ious masses. No hydronephrosis. No calcifications. BLADDER: Poorly evaluated. Incompletely filled. OTHER FINDINGS: Gallstones. IMPRESSION: Chronic changes in both kidneys with cortical thinning. No hydronephrosis. No stones. Cholelithiasis is an incidental finding. TECHNICAL DOCUMENTATION: JOB ID: [id number] [employer]- All Rights Reserved Reading location - IP/workstation name: [email or web address]
== END ==
LOC: WI 13:25
PROVIDERS: ATTEND Physician Assistant Medical
DX: N17.9 Acute kidney failure, unspecified (principal); N18.3 Chronic kidney disease, stage 3 (moderate); K80.20 Calculus of gallbladder without cholecystitis without obstruction
CPT/HCPCS: 76770

== ENCOUNTER → 2019-07-18 | Outpatient (CLI) | payer MEDICARE, OTHER ==
[2019-07-18 09:31] LABS: APPEARANCE,URINE CLEAR; BILIRUBIN,URINE NEGATIVE (NEGATIVE); COLOR,URINE STRAW; GLUCOSE, URINE NEGATIVE (NEGATIVE); KETONES,URINE NEGATIVE (NEGATIVE); LEUKOCYTE ESTERASE,URINE NEGATIVE (NEGATIVE); NITRITE,URINE NEGATIVE (NEGATIVE); PROTEIN,URINE NEGATIVE (NEGATIVE); URINE SPECIFIC GRAVITY 1.008; UROBILINOGEN,URINE NEGATIVE mg/dL (<2.0)
[2019-07-18 09:51] LABS: ANION GAP 10 (5-19); BLOOD UREA NITROGEN 21 mg/dL (7-20); CALCIUM 9.2 mg/dL (8.4-10.2); CARBON DIOXIDE 27 mmol/L (22-30); CHLORIDE 99 mmol/L (98-107); GLUCOSE 97 mg/dL (75-110); POTASSIUM 4.4 mmol/L (3.6-5.0)
== END ==
LOC: OD 08:22
PROVIDERS: ATTEND Physician Assistant Medical
DX: I12.9 Hypertensive chronic kidney disease with stage 1 through stage 4 chronic kidney disease, or unspecified chronic kidney disease (principal); N18.3 Chronic kidney disease, stage 3 (moderate); N17.9 Acute kidney failure, unspecified; N25.0 Renal osteodystrophy; M10.00 Idiopathic gout, unspecified site
CPT/HCPCS: 36415; 80069; 81001

== ENCOUNTER → 2019-11-12 | Outpatient (CLI) | payer MEDICARE, OTHER ==
[2019-11-12 08:37] LABS: ABSOLUTE EOSINOPHILS # (AUTO) 0.2 10^3/uL (0.0-0.6); ABSOLUTE MONOCYTES (AUTO) 0.4 10^3/uL (0.1-1.4); ABSOLUTE NEUT (AUTO) 3.4 10^3/uL (1.7-8.2); BASOPHILS % (AUTO) 0.7 % (0-2); EOSINOPHILS % (AUTO) 2.8 % (0-6); HEMATOCRIT 36.8 % (36.0-47.0); HEMOGLOBIN 12.2 g/dL (12.0-15.5); LYMPHOCYTES % (AUTO) 33.2 % (13-45); MEAN CORPUSCULAR HEMOGLOBIN 30.5 pg (27.0-33.4); MEAN CORPUSCULAR HGB CONC 33.2 g/dL (32.0-36.0); MEAN CORPUSCULAR VOLUME 92 fl (80-97); MONOCYTES % (AUTO) 6.4 % (3-13); PLATELET COUNT 240 10^3/uL (150-450); RED BLOOD COUNT 4.01 10^6/uL (3.72-5.28); RED CELL DISTRIBUTION WIDTH 17.5 % (11.5-14.0); SEGMENTED NEUTROPHILS % (AUTO) 56.9 % (42-78); TOTAL CELLS COUNTED % (AUTO) 100 %; WHITE BLOOD COUNT 5.9 10^3/uL (4.0-10.5)
[2019-11-12 08:39] LABS: APPEARANCE,URINE SLIGHTLY-CLOUDY; BILIRUBIN,URINE NEGATIVE (NEGATIVE); COLOR,URINE YELLOW; GLUCOSE, URINE NEGATIVE (NEGATIVE); KETONES,URINE NEGATIVE (NEGATIVE); LEUKOCYTE ESTERASE,URINE LARGE (NEGATIVE); NITRITE,URINE NEGATIVE (NEGATIVE); PROTEIN,URINE NEGATIVE (NEGATIVE); URINE SPECIFIC GRAVITY 1.008; UROBILINOGEN,URINE NEGATIVE mg/dL (<2.0)
[2019-11-12 08:47] LABS: ADD MANUAL MICROSCOPIC YES
[2019-11-12 08:48] LABS: WBC,URINE 20-30 /HPF
[2019-11-12 08:49] LABS: BACTERIA,URINE 3+ /HPF
[2019-11-12 08:56] LABS: ALBUMIN 4.1 g/dL (3.5-5.0); ANION GAP 9 (5-19); BLOOD UREA NITROGEN 37 mg/dL (7-20); CALCIUM 9.5 mg/dL (8.4-10.2); CARBON DIOXIDE 26 mmol/L (22-30); CHLORIDE 102 mmol/L (98-107); GLUCOSE 114 mg/dL (75-110); PHOSPHORUS 4.1 mg/dL (2.5-4.5); POTASSIUM 4.3 mmol/L (3.6-5.0)
== END ==
LOC: OD 08:13
PROVIDERS: ATTEND Physician Assistant Medical
DX: I12.9 Hypertensive chronic kidney disease with stage 1 through stage 4 chronic kidney disease, or unspecified chronic kidney disease (principal); N18.3 Chronic kidney disease, stage 3 (moderate); N25.0 Renal osteodystrophy; E87.5 Hyperkalemia; D64.9 Anemia, unspecified; N39.0 Urinary tract infection, site not specified
CPT/HCPCS: 36415; 80069; 81001; 83970; 85025; 87086; 87088; 87186

== ENCOUNTER → 2020-03-08 | Outpatient (CLI) | payer MEDICARE, OTHER ==
--- NOTE | 2020-03-08 18:46 | WOMENS IMAGING REPORT ---
EXAM DESCRIPTION: 3D SCREENING MAMMO BILAT IMAGES COMPLETED DATE/TIME: 03/08/2020 2:28 pm REASON FOR STUDY: Z12.31 ENCNTR SCREEN MAMMOGRAM FOR MALIGNANT NEOPLASM OF BREAST Z12.31 ENCNTR SCR EEN MAMMOGRAM FOR MALIGNANT NEOPLASM OF CARYL COMPARISON: Digital tomosynthesis bilateral screening mammograms dated 03/05/2019, 03/04/2018 and 02/21. EXAM PARAMETERS: Standard craniocaudal and mediolateral oblique views of each breast recorded using digital acquisition and breast tomosynthesis. Read with the assistance of CAD. .[facility] - [employer] Line Mover Version 9.2 LIMITATIONS: None. FINDINGS: Findings present which are benign by mammographic criteria. No suspicious masses, calcific ations or architectural distortion. Pertinent benign findings: Stable vascular calcifications in the breast. Benign mammographic findings may include one or more of the following: Smooth masses, popcorn/rim/coa rse calcifications, asymmetries, post-procedure changes, and lesions with long-standing stability. IMPRESSION: BENIGN MAMMOGRAPHIC FINDINGS. BIRADS 2 BREAST DENSITY: c. The breasts are heterogeneously dense, which may obscure small masses. BIRAD: ASSESSMENT: 2 BENIGN FINDING(S) RECOMMENDATION: 1. ROUTINE SCREENING COMMENT: The patient has been notified of the results by letter per MQSA requirements. Additional no tification policies are in place for contacting patient with suspicious or incomplete findings. Quality ID #[id number]: The [employer] recommends an annual screening mammogram for women aged 40 years or over. This facility utilizes a reminder system to ensure that all patients receive reminder letters, and/or direct phone calls for appointments. This includes reminders for routine scr eening mammograms, diagnostic mammograms, or other Breast Imaging Interventions when appropriate. Th is patient will be placed in the appropriate reminder system. TECHNICAL DOCUMENTATION: FINDING NUMBER: (1) ASSESSMENT: (1) JOB ID: [id number] 2010 [employer]- All Rights Reserved Reading location - IP/workstation name: [id number]
== END ==
LOC: WI 14:05
PROVIDERS: ATTEND Family Medicine
DX: Z12.31 Encounter for screening mammogram for malignant neoplasm of breast (principal)
CPT/HCPCS: 77063; 77067

== ENCOUNTER → 2020-04-12 | Outpatient (CLI) | payer MEDICARE, OTHER ==
[2020-04-12 10:09] LABS: ALBUMIN 3.9 g/dL (3.5-5.0); ALKALINE PHOSPHATASE 98 U/L (38-126); ASPARTATE AMINO TRANSFERASE 27 U/L (14-36); BILIRUBIN,DIRECT 0.1 mg/dL (0.0-0.4); BILIRUBIN,TOTAL 0.6 mg/dL (0.2-1.3); CHOLESTEROL 139.66 mg/dL (0-200); TOTAL PROTEIN 6.7 g/dL (6.3-8.2); TRIGLYCERIDES 244 mg/dL (<150)
[2020-04-12 10:19] LABS: DIRECT LDL 63 mg/dL (<100)
[2020-04-12 10:23] LABS: VLDL CHOLESTEROL 48.8 mg/dL (10-31)
== END ==
LOC: OD 08:06
PROVIDERS: ATTEND Specialist
DX: I48.0 Paroxysmal atrial fibrillation (principal); I34.0 Nonrheumatic mitral (valve) insufficiency; I25.10 Atherosclerotic heart disease of native coronary artery without angina pectoris; E78.49 Other hyperlipidemia; I12.9 Hypertensive chronic kidney disease with stage 1 through stage 4 chronic kidney disease, or unspecified chronic kidney disease; N18.4 Chronic kidney disease, stage 4 (severe); I36.1 Nonrheumatic tricuspid (valve) insufficiency; J44.9 Chronic obstructive pulmonary disease, unspecified; E03.9 Hypothyroidism, unspecified; M10.9 Gout, unspecified; D50.8 Other iron deficiency anemias; R06.00 Dyspnea, unspecified; Z79.899 Other long term (current) drug therapy; Z95.1 Presence of aortocoronary bypass graft
CPT/HCPCS: 36415; 80061; 80076

== ENCOUNTER → 2020-05-04 | Outpatient (CLI) | payer MEDICARE, OTHER ==
--- NOTE | 2020-05-04 14:04 | RADIOLOGY REPORT (SQ) ---
EXAM DESCRIPTION: CHEST 2 VIEWS IMAGES COMPLETED DATE/TIME: 05/04/2020 12:57 pm REASON FOR STUDY: (R05)COUGH;(R06.2)WHEEZING COMPARISON: 01/05/2009 EXAM PARAMETERS: NUMBER OF VIEWS: two views TECHNIQUE: Digital Frontal and Lateral radiographic views of the chest acquired. RADIATION DOSE: NA LIMITATIONS: none FINDINGS: LUNGS AND PLEURA: There is hyperexpansion of the lungs. There appears to be a minimal rig ht pleural effusion. No infiltrate. No mass. MEDIASTINUM AND HILAR STRUCTURES: No masses or contour abnormalities. HEART AND VASCULAR STRUCTURES: Heart normal size. No evidence for failure. BONES: Scoliosis. HARDWARE: Sternotomy wires. Graft markers. OTHER: No other significant finding. IMPRESSION: Chronic lung changes with no acute cardiopulmonary findings. Small right pleural effusi on. Scoliosis. TECHNICAL DOCUMENTATION: JOB ID: [id number] 2010 [employer]- All Rights Reserved Reading location - IP/workstation name: [email or web address]
== END ==
LOC: RAD 12:23
PROVIDERS: ATTEND Family Medicine
DX: J90 Pleural effusion, not elsewhere classified (principal); R05 Cough; R06.2 Wheezing; M41.9 Scoliosis, unspecified
CPT/HCPCS: 71046

== ENCOUNTER 2020-05-31 14:00 | Inpatient (IN) | payer MEDICARE, OTHER ==
--- NOTE | 2020-05-31 14:38 | ER Document Report ---
ED Medical Screen (RME) - General Chief Complaint: Breathing Difficulty Stated Complaint: BREATHING DIFFICULTY Time Seen by Provider: 05/31/20 14:30 Primary Care Provider: DURAN QUICK MD [Primary Care Provider] - Follow up as needed Mode of Arrival: Wheelchair Information source: Patient, Relative Notes: HPI; 84-year-old female brought to emergency room by her complaining of persistent worsening shortness of breath and coughing since May 13. Was seen here and discharged home with steroids and cough medicine which she has been taking without relief. Unable to follow-up with primary care physician until next month. PE: Alert and oriented x3. Lungs: Scattered rhonchi no wheezes no rales. Heart tachycardic without murmurs, rubs, gallops. Patient is tachypneic and tachycardic with a pulse ox of 95. Charge nurse was notified. I have greeted and performed a rapid initial assessment of this patient. A comprehensive ED assessment and evaluation of the patient, analysis of test results and completion of the medical decision making process will be conducted by additional ED providers. I have specifically instructed the patient or fami ly members with the patient to immediately return to any nursing staff should anything change in the patient's condition or with their chief complaint. TRAVEL OUTSIDE OF THE [place] IN LAST 30 DAYS: No - Related Data Allergies/Adverse Reactions: Sulfa (Sulfonamide Antibiotics) Allergy (Verified 05/13/20 14:41) IVP DYE Allergy (Uncoded 01/25/11 12:23) Past Medical History - Past Medical History Cardiac Medical History: Reports: Hx Coronary Artery Disease, Hx Heart Attack - 4 YRS, Hx Hypertension - ATACARD,METOPROLOL, PLENDIL Pulmonary Medical History: Denies: Hx Asthma, Hx Bronchitis, Hx COPD, Hx Pneumonia Neurological Medical History: Denies: Hx Cerebrovascular Accident, Hx Seizures GI Medical History: Denies: Hx Hepatitis, Hx Hiatal Hernia, Hx Ulcer Musculoskeltal Medical History: Reports Hx Arthritis Infectious Medical History: Denies: Hx Hepatitis Past Surgical History: Reports: Hx Cardiac Surgery, Hx Open Heart Surgery - 4 yrs ago. Denies: Hx Hysterectomy, Hx Mastectomy, Hx Pacemaker - Immunizations Hx Diphtheria, Pertussis, Tetanus Vaccination: No Physical Exam - Vital signs Vitals: Temp Pulse Resp BP Pulse Ox 97.5 F 123 H 22 H 128/101 H 95 05/31/20 14:05 05/31/20 14:05 05/31/20 14:05 05/31/20 14:05 05/31/20 14:05 Course - Vital Signs Vital signs: Temp Pulse Resp BP Pulse Ox 97.5 F 123 H 22 H 128/101 H 95 05/31/20 14:05 05/31/20 14:05 05/31/20 14:05 05/31/20 14:05 05/31/20 14:05 Doctor's Discharge - Discharge Referrals: DURAN QUICK MD [Primary Care Provider] - Follow up as needed
--- NOTE | 2020-05-31 14:42 | ER Document Report ---
ED Respiratory Problem - General Chief Complaint: Breathing Difficulty Stated Complaint: BREATHING DIFFICULTY Time Seen by Provider: 05/31/20 14:30 Primary Care Provider: DURAN SANTAMARIA MD [Primary Care Provider] - Follow up as needed Mode of Arrival: Wheelchair Information source: Patient Notes: PRIOR ED Medical Screen (Adel[facility] GALE) - General Chief Complaint: Breathing Difficulty Stated Complaint: BREATHING Time Seen by Provider: 05/13/20 13:51 Primary Care Provider: JOSEF MEMBRENO MD [Primary Care Provider] - Follow up as needed Mode of Arrival: Wheelchair Information source: Patient Notes: 84-year-old female presents to ED for shortness of breath and cough. She states she has been feeling terrible for about 2 weeks. She states that she saw her [facility] doctor 10 days ago he put her on doxycycline and albuterol inhaler. She states she does not feel any better she feels worse. She states she cannot breathe she is tired she cannot get up and do anything because of her exhaustion. She cannot eat. She states her abdomen also hurts. She states she called her primary doctor Dr. Santamaria and he sent her to the emergency room. We will do the Covid test flu strep chest x-ray and blood work and urine. She will be seen by another provider. States she had open heart surgery [address] Cornejo is her services account manager she states she also has stage III kidney failure and Dr. Cardona is her doctor PRIOR ED 13 May 2020 by Nash and Jesus Alberto paredes Time Seen by Provider: 05/13/20 13:51 Primary Care Provider: JOSEF MEMBRENO MD [ACTIVE STAFF] - Follow up as needed DURAN SANTAMARIA MD [Primary Care Provider] - Follow up as needed Mode of Arrival: Wheelchair this 84 year old female patient presents to the emergency department today with complaints of a cough, shortness of breath, and generalized fatigue for about the past two weeks. She reports that she she was seen by her PCP for this about a week and a half ago and she was started on doxycycline and an albuterol inhaler. She has not noticed much change since starting these medications. Patient mentions that she has also not had an appetite the last couple of weeks. She denies any known COVID-19 exposure. Patient reports she has had trouble swallowing, it was provoking coughing for the past 2 days. She does recognize that she may be a little dehydrated. 05/13/20 17:33 The patient was evaluated during the global COVID-19 pandemic and that diagnosis was suspected/considered upon their initial presentation. Their evaluation, treatment and testing was consistent with current guidelines for patients who present with complaints or symptoms that may be related to COVID-19. 05/13/20 18:46 The patient airway obstructive sounds are much improved after racemic epi, and she feels better. 05/13/20 20:00 The patient was given water to drink. She stated it was very good and she did not have trouble swallowing it like she did prior to the racemic epi treatment. It has now been 2.5 hours since she got the racemic epinephrine, there has been no worsening since the initial exam following the treatment. She did receive an IV dose of Decadron. She will be discharged on a Medrol D [place] to start tomorrow. She will be encouraged to drink lots of fluids throughout the day in the evening. 05/13/20 20:00 ED Medical Screen ([place] notes) - General Chief Complaint: Breathing Difficulty Stated Complaint: BREATHING DIFFICULTY Time Seen by Provider: 05/31/20 14:30 Primary Care Provider: DURAN SANTAMARIA MD [Primary Care Provider] - Follow up as needed Mode of Arrival: Wheelchair Information source: Patient, Relative Notes: HPI; 84-year-old female brought to emergency room by her complaining of persistent worsening shortness of breath and coughing since May 13. Was seen here and discharged home with steroids and cough medicine which she has be en taking without relief. Unable to follow-up with primary care physician until next month. PE: Alert and oriented x3. Lungs: Scattered rhonchi no wheezes no rales. Heart tachycardic without murmurs, rubs, gallops. Patient is tachypneic and tachycardic with a pulse ox of 95. Charge nurse was notified. MY NOTES 84-year-old female arrives with chief complaint of shortness of breath and produ ctive cough. Patient arrives with pulse ox of 95 with obvious tachypnea and tachycardia. Her EKG was positive for heart rate of 125 atrial component. Patient reports her cough began in mid April and denies any use of new medicines new animal exposure new plants new perfumes new soaps. She denies any prior history of asthma. She consulted Dr. Valdes her services account manager. She arrives with Luis Antonio as route salesman and driver. Luis Antonio has been doing well and going to the grocery store for her and patient has been staying at home trying to recuperate. Her last test for Covid was 13 May. As per above patient saw Dr. Flowers who wrote her for cough medicine and for steroids and patient reports some sy mptoms partially resolved. TRAVEL OUTSIDE OF THE [place] IN LAST 30 DAYS: No - HPI Patient complains to provider of: Asthma, Cough, Hurts to breath, Short of breath. No: Chest pain, CHF, COPD Initiating Event: No: Allergy, Aspiration/Choking, Exertion Quality of pain: denies: Burning Severity: Severe Pain Level: 5 Context: denies: DVT, Factor V Leiden, Hx CHF, Hx COPD, Malignancy, , Recent foreign travel, Recent immobilization, Recent surgery, Smoker Short of Breath: Severe Chest pain/discomfort: Heaviness Cough: Nonproductive At home treatment: Oral steroids Associated symptoms: Ankle/leg swelling - Left-sided edema secondary to veinectomy more than 13 years ago. - Related Data Allergies/Adverse Reactions: Sulfa (Sulfonamide Antibiotics) Allergy (Verified 05/13/20 14:41) IVP DYE Allergy (Uncoded 01/25/11 12:23) Past Medical History - General Information source: Patient, Relative - Dontae - Social History Smoking Status: Never Smoker Cigarette use (# per day): No Chew tobacco use (# tins/day): No Smoking Education Provided: No Frequency of alcohol use: None Drug Abuse: None Lives with: Family Family History: Reviewed & Not Pertinent Patient has suicidal ideation: No Patient has homicidal ideation: No - Past Medical History Cardiac Medical History: Reports: Hx Coronary Artery Disease, Hx Heart Attack - 4 YRS, Hx Hypertension - ATACARD,METOPROLOL, PLENDIL Pulmonary Medical History: Denies: Hx Asthma, Hx Bronchitis, Hx COPD, Hx Pneumonia Neurological Medical History: Denies: Hx Cerebrovascular Accident, Hx Seizures GI Medical History: Denies: Hx Hepatitis, Hx Hiatal Hernia, Hx Ulcer Musculoskeletal Medical History: Reports Hx Arthritis Infectious Medical History: Denies: Hx Hepatitis Past Surgical History: Reports: Hx Cardiac Surgery, Hx Open Heart Surgery - 4 yrs ago. Denies: Hx Hysterectomy, Hx Mastectomy, Hx Pacemaker - Immunizations Hx Diphtheria, Pertussis, Tetanus Vaccination: No Physical Exam - Vital signs Vitals: Temp Pulse Resp BP Pulse Ox 97.5 F 123 H 22 H 128/101 H 95 05/31/20 14:05 05/31/20 14:05 05/31/20 14:05 05/31/20 14:05 05/31/20 14:05 Interpretation: Normal - General General appearance: Appears well, Alert - HEENT Head: Normocephalic, Atraumatic Eyes: Normal Pupils: PERRL - Respiratory Respiratory status: Respiratory distress, Tripod position Chest status: Nontender Breath sounds: Decreased air movement, Wheezing Chest palpation: Normal - Cardiovascular Rhythm: Tachycardia Heart sounds: Normal auscultation Murmur: No - Abdominal Inspection: Normal Distension: No distension Bowel sounds: Normal Tenderness: Nontender Organomegaly: No organomegaly - Rectal Hemorrhoids: Other - Deferred - Genitourinary Bimanuel exam: Other - Deferred - Back Back: Normal, Nontender - Extremities General upper extremity: Normal inspection, Nontender, Normal color, Normal ROM, Normal temperature General lower extremity: Normal inspection, Nontender, Normal color, Normal ROM, Normal temperature, Normal weight bearing. No: Maine's sign - Neurological Neuro grossly intact: Yes Cognition: Normal Orientation: AAOx4 Haskins Coma Scale Eye Opening: Spontaneous Rohit Coma Scale Verbal: Oriented Rohit Coma Scale Motor: Obeys Commands Haskins Coma Scale Total: 15 Speech: Normal Motor strength normal: LUE, RUE, LLE, RLE Sensory: Normal - Psychological Associated symptoms: Normal affect, Normal mood - Skin Skin Temperature: Warm Skin Moisture: Dry Skin Color: Normal Course - Vital Signs Vital signs: Temp Pulse Resp BP Pulse Ox 97.5 F 123 H 22 H 128/101 H 95 05/31/20 14:05 05/31/20 14:05 05/31/20 14:05 05/31/20 14:05 05/31/20 14:05 - Laboratory Results Result Diagrams: 05/31/20 15:50 05/31/20 15:50 Laboratory Results Interpreted: 05/31/20 05/31/20 05/31/20 15:50 15:50 15:50 RDW 17.7 H D-Dimer Carbon Dioxide 21 L BUN 46 H Creatinine 2.51 H Est GFR ( Amer) 22 L Est GFR (MDRD) Non-Af 18 L AST 37 H NT-Pro-B Natriuret Pep 7000 H 05/31/20 15:50 RDW D-Dimer 0.99 H Carbon Dioxide BUN Creatinine Est GFR ( Amer) Est GFR (MDRD) Non-Af AST NT-Pro-B Natriuret Pep Critical Laboratory Results Reviewed: Yes Attending or Supervising Physician who Reviewed Labs: JAMES RODRIGUEZ JR Radiology Results Radiology Results Interpreted: 05/31/20 16:31 Dr Lion radiologist read this x-ray. 05/31/20 19:[address] with concerning for lymphoma and right lower lobe atelectasis effusion Critical Radiology Results Reviewed: Yes Attending or Supervising Physician who Reviewed Radiology: JAMES RODRIGUEZ JR - I contacted mechatronics technologist at 1520 @ ivp"allergy"..actually phlebitis and will use benadryl/decadron prior to cta - EKG Interpretation by Me EKG shows normal: Sinus rhythm Rate: Tachycardia Rhythm: A.Fib - Heart rate [address] depression anterior leads and this was read by myself as well as agreeing with the EKG machine. Critical Care Note - Critical Care Note Comments: I initially asked for CTA however patient's kidney functions dictated we had to do noncontrast. I discussed this case with Dr. Bradford @[phone] and he accepts the patient ;after I spoke to Dr. Valdes her services account manager who requests a consult for himself. Discharge - Discharge Clinical Impression: Swallowing dysfunction, Right lower lobe pulmonary infiltrate, question of lymphoma on ct GERD (gastroesophageal reflux disease) Qualifiers: Esophagitis presence: with esophagitis Esophagitis bleeding: without hemorrhage Qualified Code(s): K21.00 - Gastro-esophageal reflux disease with esophagitis, without bleeding Condition: Stable Disposition: ADMITTED INPATIENT Admitting Provider: Suzette (Hospitalist) Unit Admitted: Telemetry Referrals: DURAN SANTAMARIA MD [Primary Care Provider] - Follow up as needed
[2020-05-31] MEDS ORDERED: IPRATROPIUM/ALBUTEROL 0.5-2.5 MG/3 ML AMPUL NEB ONE (14:53)
[2020-05-31] MEDS ORDERED: BENZONATATE 100 MG CAPSULE PO ONE (14:58)
[2020-05-31] MEDS ORDERED: BUMETANIDE INJ/PF 1 MG/4 ML SDV IV ONE (15:08)
[2020-05-31] MEDS ORDERED: DEXAMETHASONE SOD PHOS INJ 10 MG/1 ML VIAL IV ONE ×2 (15:22→20:45)
[2020-05-31] MEDS ORDERED: DIPHENHYDRAMINE HCL 50 MG/ML VIAL IV ONE (15:22)
--- NOTE | 2020-05-31 15:27 | RADIOLOGY REPORT (SQ) ---
EXAM DESCRIPTION: CHEST SINGLE VIEW IMAGES COMPLETED DATE/TIME: 05/31/2020 3:14 pm REASON FOR STUDY: dyspnea COMPARISON: 05/13/2020 EXAM PARAMETERS: NUMBER OF VIEWS: One view. TECHNIQUE: Single frontal radiographic view of the chest acquired. RADIATION DOSE: NA LIMITATIONS: None. FINDINGS: LUNGS AND PLEURA: Fullness of the right hilum again noted. Minimal ill-defined right basi lar opacities. No pneumothorax. Possible trace bilateral effusions. MEDIASTINUM AND HILAR STRUCTURES: Right hilar fullness. HEART AND VASCULAR STRUCTURES: Normal heart size. Vascular calcifications. BONES: No acute findings. HARDWARE: Sternotomy and CABG hardware. OTHER: No other significant finding. IMPRESSION: Right hilar fullness again noted. Recommend CT for more complete characterization. Minimal right basilar opacities, possibly atelectasis or infection. TECHNICAL DOCUMENTATION: JOB ID: [id number] 2010 Personal- All Rights Reserved Reading location - IP/workstation name: [email or web address]
[2020-05-31 16:14] LABS: ABSOLUTE BASOPHILS # (AUTO) 0.1 10^3/uL (0.0-0.2); ABSOLUTE EOSINOPHILS # (AUTO) 0.1 10^3/uL (0.0-0.6); ABSOLUTE LYMPHOCYTES (AUTO) 1.6 10^3/uL (0.5-4.7); ABSOLUTE MONOCYTES (AUTO) 0.5 10^3/uL (0.1-1.4); BASOPHILS % (AUTO) 0.8 % (0-2); EOSINOPHILS % (AUTO) 1.5 % (0-6); HEMATOCRIT 36.9 % (36.0-47.0); HEMOGLOBIN 12.3 g/dL (12.0-15.5); LYMPHOCYTES % (AUTO) 22.4 % (13-45); MEAN CORPUSCULAR HEMOGLOBIN 29.5 pg (27.0-33.4); MEAN CORPUSCULAR HGB CONC 33.3 g/dL (32.0-36.0); MEAN CORPUSCULAR VOLUME 89 fl (80-97); MONOCYTES % (AUTO) 6.3 % (3-13); PLATELET COUNT 268 10^3/uL (150-450); RED BLOOD COUNT 4.16 10^6/uL (3.72-5.28); RED CELL DISTRIBUTION WIDTH 17.7 % (11.5-14.0); TOTAL CELLS COUNTED % (AUTO) 100 %; WHITE BLOOD COUNT 7.2 10^3/uL (4.0-10.5)
[2020-05-31 16:31] LABS: ALBUMIN 4.1 g/dL (3.5-5.0); ALKALINE PHOSPHATASE 74 U/L (38-126); ANION GAP 13 (5-19); ASPARTATE AMINO TRANSFERASE 37 U/L (14-36); BILIRUBIN,DIRECT 0.3 mg/dL (0.0-0.4); BILIRUBIN,TOTAL 0.9 mg/dL (0.2-1.3); BLOOD UREA NITROGEN 46 mg/dL (7-20); CALCIUM 9.9 mg/dL (8.4-10.2); CARBON DIOXIDE 21 mmol/L (22-30); CHLORIDE 103 mmol/L (98-107); GLUCOSE 107 mg/dL (75-110); TOTAL PROTEIN 6.8 g/dL (6.3-8.2)
[2020-05-31] MEDS ORDERED: VANCOMYCIN HCL INJ 1000 MG VIAL IV ONE ×2 (17:15→20:45)
[2020-05-31] MEDS ORDERED: LEVOFLOXACIN 500 MG/D5W RTU 500 MG/100 ML RTUPB IV ONE ×2 (17:16→20:45)
--- NOTE | 2020-05-31 18:41 | RADIOLOGY REPORT (SQ) ---
EXAM DESCRIPTION: CT CHEST WITHOUT IMAGES COMPLETED DATE/TIME: 05/31/2020 5:19 pm REASON FOR STUDY: miller sob COMPARISON: Chest x-ray 05/31/2020 TECHNIQUE: CT scan performed of the chest without intravenous contrast. Images reviewed with lung, soft tissue and bone windows. Reconstructed coronal and sagittal MPR images reviewed. All images st ored on PACS. All CT scanners at this facility use dose modulation, iterative reconstruction, and/or weight based d osing when appropriate to reduce radiation dose to as low as reasonably achievable (ALARA). [facility]: Dose Right [facility]: CareDose [facility]: Dose Right [facility]: Teradose 4D [facility]: Smart Technologies RADIATION DOSE: CT Rad equipment meets quality standard of care and radiation dose reduction techniq ues were employed. CTDIvol: 10.3 mGy. DLP: 373 mGy-cm. mGy. LIMITATIONS: No technical limitations. FINDINGS: LUNGS AND PLEURA: Small right pleural effusion with mild associated atelectasis in the low er lobe. HILAR AND MEDIASTINAL STRUCTURES: Marked mediastinal adenopathy. Right hilar adenopathy. HEART AND VASCULAR STRUCTURES: No aneurysm. No pericardial effusion. UPPER ABDOMEN: No significant findings. Limited exam. THYROID AND OTHER SOFT TISSUES: No masses. No adenopathy. BONES: Scoliosis. No lesions. HARDWARE: Sternotomy wires. OTHER: No other significant findings. IMPRESSION: Marked mediastinal and right hilar adenopathy highly concerning for neoplasm such as lym phoma. Small right pleural effusion with mild associated atelectasis. Scoliosis. TECHNICAL DOCUMENTATION: JOB ID: [id number] Quality ID # [id number]: Final reports with documentation of one or more dose reduction techniques (e.g., Au tomated exposure control, adjustment of the mA and/or kV according to patient size, use of iterative reconstruction technique) 2010 [employer]- All Rights Reserved Reading location - IP/workstation name: [email or web address]
--- NOTE | 2020-05-31 19:29 | PDOC H&P ---
History of Present Illness Admission Date/PCP: DURAN QUICK MD Patient complains of: Persistent cough with shortness of breath History of Present Illness: TY JJ is a 84 year old female with history of persistent atrial fibrillation, hypertension, chronic renal failure and hypercholesterolemia. She has a history of coronary artery disease with bypass. She has been struggling with a cough for several weeks now. She has been to her primary care provider as well as the emergency department. She has failed outpatient antibiotic therapy. She presents again today. There is no significant white blood cell count, she is afebrile but she does have an elevated BUN and creatinine. Her elevated brain natruretic peptide is similar to earlier this month. Clinically she appears dry as well. During this evaluation a right lower lobe pneumonia did appear by CT scan. The patient's breathing is tight but no overt wheezes. She has a significant persistent cough. She will be admitted to the hospitalist service. She will be on IV antibiotics. We will give a short course of systemic steroids. She will have scheduled and as needed nebulizers. Will monitor on telemetry and she will continue her Xarelto for chronic anticoagulation for her atrial fibrillation. Past Medical History Cardiac Medical History: Reports: Coronary Artery Disease, Myocardial Infarction - 4 YRS, Hypertension - ATACARD,METOPROLOL, PLENDIL Pulmonary Medical History: Denies: Asthma, Bronchitis, Chronic Obstructive Pulmonary Disease (COPD), Pneumonia Neurological Medical History: Denies: Seizures GI Medical History: Denies: Hepatitis, Hiatal Hernia Musculoskeltal Medical History: Reports: Arthritis Psychiatric Medical History: Reports: Tobacco Dependency Hematology: Reports: Anemia Denies: Sickle Cell Disease Past Surgical History Past Surgical History: Reports: Appendectomy, Coronary Artery Bypass Graft Denies: Amputation, Hysterectomy, Mastectomy, Pacemaker Social History Information Source: Patient, [facility] Records Lives with: Spouse/Significant other Smoking Status: Former Smoker Electronic Cigarette use?: No Frequency of Alcohol Use: None Hx Recreational Drug Use: No Hx Prescription Drug Abuse: No - Advance Directive Resuscitation Status: Full Code Surrogate healthcare decision maker:: Patient's is the designated decision maker. He is at the bedside. Family History Family History: CAD, Other - Kidney disease Parental Family History Reviewed: Yes Children Family History Reviewed: NA Sibling(s) Family History Reviewed.: Yes Medication/Allergy Home Medications: Aspirin [Ecotrin 81 mg EC Tablet] 81 mg PO DAILY 04/04/11 Felodipine [Plendil] 10 mg PO DAILY 04/04/11 Levothyroxine Sodium [Synthroid 100 Mcg Tablet] 100 mcg PO DAILY 04/04/11 Metoprolol Succinate [Toprol-Xl 50 Mg Tab.Sr] 50 mg PO DAILY 04/04/11 Candesartan Cilexetil [Atacand 16 mg Tablet] 1 tab PO BID 08/11/16 Krill/Om-3/Dha/Epa/Phospho/Ast [Megared [employer]-3 Krill Oil Sfgl] 1 cap PO DAILY 08/11/16 Polyethylene Glycol 3350 [Miralax Powder 17 gm/Packet] 1 packet PO DAILY 08/11/16 Rivaroxaban [Xarelto 15 mg Tablet] 1 tab PO DAILY 08/11/16 Rosuvastatin Calcium [Crestor 20 mg Tablet] 1 tab PO DAILY 08/11/16 Methylprednisolone [Medrol Dosepack (4 mg/Tab) 21 Tab/Dosepak] 4 mg PO ASDIR PRN #21 tab.ds.pk 05/13/20 Allergies/Adverse Reactions: Sulfa (Sulfonamide Antibiotics) Allergy (Verified 05/13/20 14:41) IVP DYE Allergy (Uncoded 01/25/11 12:23) Review of Systems All systems: reviewed and no additional remarkable complaints except as stated Cardiovascular: PRESENT: dyspnea on exertion Respiratory: PRESENT: cough, dyspnea Gastrointestinal: PRESENT: abdominal pain Physical Exam Vital Signs: Temp Pulse Resp BP Pulse Ox 97.5 F 123 H 22 H 128/101 H 95 05/31/20 14:05 05/31/20 14:05 05/31/20 14:05 05/31/20 14:05 05/31/20 14:05 Intake & Output 05/30/20 05/31/20 06/01/20 06:59 06:59 06:59 Weight 65.4 kg General appearance: PRESENT: cooperative, mild distress - Mild to moderate distress, well-developed, well-nourished Head exam: PRESENT: atraumatic, normocephalic Eye exam: PRESENT: conjunctiva pink, EOMI. ABSENT: scleral icterus Ear exam: PRESENT: normal external ear exam. ABSENT: bleeding, drainage Mouth exam: PRESENT: moist, tongue midline Neck exam: ABSENT: carotid bruit, JVD, lymphadenopathy Respiratory exam: PRESENT: prolonged expiratory phas, rales - Right side, symm etrical, tachypnea. ABSENT: rhonchi, wheezes Cardiovascular exam: PRESENT: irregular rhythm, tachycardia. ABSENT: bradycardia, diastolic murmur, systolic murmur GI/Abdominal exam: PRESENT: normal bowel sounds, soft, tenderness - Nonfocal diffuse tenderness to mild palpation. ABSENT: distended Rectal exam: PRESENT: deferred Gentrourinary exam: ABSENT: indwelling catheter Extremities exam: ABSENT: calf tenderness, pedal edema Musculoskeletal exam: PRESENT: ambulatory, normal inspection. ABSENT: deformity, dislocation Neurological exam: PRESENT: alert, awake, oriented to person, oriented to place, oriented to time, oriented to situation, CN II-XII grossly intact. ABSENT: altered Psychiatric exam: PRESENT: appropriate affect - Affect reflects her current illness. ABSENT: agitated, anxious Focused psych exam: ABSENT: delusional, paranoid, restlessness Skin exam: PRESENT: dry - Very dry skin with skin tenting, other - Very thin skin. ABSENT: erythema, rash, vesicles Results Laboratory Results: 05/31/20 15:50 05/31/20 15:50 05/31/20 05/31/20 15:50 15:50 WBC 7.2 RBC 4.16 Hgb 12.3 Hct 36.9 MCV 89 MCH 29.5 MCHC 33.3 RDW 17.7 H Plt Count 268 Seg Neutrophils % 69.0 Sodium 137.1 Potassium 5.0 Chloride 103 Carbon Dioxide 21 L Anion Gap 13 BUN 46 H Creatinine 2.51 H Est GFR ( Amer) 22 L Glucose 107 Calcium 9.9 Total Bilirubin 0.9 AST 37 H Alkaline Phosphatase 74 Total Protein 6.8 Albumin 4.1 05/31/20 05/31/20 15:50 15:50 Troponin I 0.037 NT-Pro-B Natriuret Pep 7000 H Impressions: Chest X-Ray 05/31/20 14:34 IMPRESSION: Right hilar fullness again noted. Recommend CT for more complete characterization. Minimal right basilar opacities, possibly atelectasis or infection. Chest CT 05/31/20 15:37 IMPRESSION: Marked mediastinal and right hilar adenopathy highly concerning for neoplasm such as lymphoma. Small right pleural effusion with mild associated atelectasis. Scoliosis. Assessment and Plan - Diagnosis (1) Right lower lobe pulmonary infiltrate Is this a current diagnosis for this admission?: Yes (2) Longstanding persistent atrial fibrillation Is this a current diagnosis for this admission?: Yes (3) Coronary artery disease Qualifiers: Coronary Disease-Associated Artery/Lesion type: [place] artery [place] vs. transplanted heart: [place] heart Associated angina: without angina Qualified Code(s): I25.10 - Atherosclerotic heart disease of [place] coronary artery without angina pectoris Is this a current diagnosis for this admission?: Yes (4) Hypertension Qualifiers: Hypertension type: essential hypertension Qualified Code(s): I10 - Essential (primary) hypertension Is this a current diagnosis for this admission?: Yes (5) Hyperlipidemia Qualifiers: Hyperlipidemia type: familial hypercholesterolemia Qualified Code(s): E78.01 - Familial hypercholesterolemia Is this a current diagnosis for this admission?: Yes (6) Kidney disease, chronic, stage IV (GFR 15-29 ml/min) Is this a current diagnosis for this admission?: Yes (7) Hypothyroidism Qualifiers: Hypothyroidism type: unspecified Qualified Code(s): E03.9 - Hypothyroidism, unspecified Is this a current diagnosis for this admission?: Yes - Plan Summary Summary: (1) Right lower lobe pulmonary infiltrate (2) Longstanding persistent atrial fibrillation (3) Coronary artery disease (4) Hypertension (5) Hyperlipidemia (6) Kidney disease, chronic, stage IV (GFR 15-29 ml/min) (7) Hypothyroidism 05/31/2020 Right lower lobe pneumonia-the patient has failed antibiotic therapy as an outpatient. She will receive intravenous ceftriaxone and azithromycin. Certainly could be viral but more likely community-acquired pneumonia. I have also asked for respiratory panel PCR testing. In addition to receiving IV antibiotic therapy she will have systemic steroids as well as the scheduled and as needed nebulizer treatments. Will supplement with oxygen if required. Chronic kidney disease-the patient may likely be dry with her decreased appetite while sick. I believe her elevated brain natruretic peptide is more from her renal failure than from cardiac failure. I have asked Dr. Valdes to consult. There is no evidence of echocardiogram in the computer. He likely has echocardiogram results from his office that he can supply. Longstanding persistent atrial fibrillation-continue metoprolol. As needed IV metoprolol if needed. Monitor on telemetry Coronary artery disease-monitor on telemetry. Continue antihypertensives as well as aspirin therapy. We will substitute amlodipine for Plendil and losartan for Atacand. Hyperlipidemia-substitute atorvastatin for rosuvastatin Hypothyroidism-continue levothyroxine - Time Time Spent with patient: 35 or more minutes Medications reviewed and adjusted accordingly: Yes Anticipated Discharge Disposition: Home with Home Health Anticipated Discharge Timeframe: Unknown - Inpatient Certification Based on my medical assessment, after consideration of the patient's comorbidities, presenting symptoms, or acuity I expect that the services needed warrant INPATIENT care.: Yes I certify that my determination is in accordance with my understanding of Medicare's requirements for reasonable and necessary INPATIENT services [42 CFR 412.3e].: Yes Medical Necessity: Failure to Improve With Outpatient Therapy, Need Close Monitoring Due to Risk of Patient Decompensation, Need For IV Fluids, Need For Continuous Telemetry Monitoring, Need for Nebulizer Therapy and Monitoring of Response, Need for IV Antibiotics Post Hospital Care: D/C or Transfer Summary
[2020-05-31] MEDS ORDERED: NORMAL SALINE 1000 ML 1,000 ML IV PRN (19:32)
[2020-05-31] MEDS ORDERED: LEVALBUTEROL HCL NEB 1.25 MG/3 ML AMPUL NEB PRN (19:32)
[2020-05-31] MEDS ORDERED: GUAIFENESIN SYRP 200 MG/10 ML UDC PO PRN (19:32)
[2020-05-31] MEDS ORDERED: ACETAMINOPHEN 325 MG TABLET PO PRN (19:32)
[2020-05-31] MEDS ORDERED: METOPROLOL TARTRATE PF/INJ 5 MG/5 ML SDV IV PRN (20:04)
[2020-05-31] MEDS ORDERED: METOPROLOL TARTRATE 25 MG TABLET PO ONE (20:45)
[2020-05-31] MEDS ORDERED: AZITHROMYCIN 500 MG in DEXTROSE 5%-WATER 250 ML IV SCH (22:00)
[2020-05-31] MEDS: LOSARTAN POTASSIUM 50 MG TABLET PO SCH (22:19)
[2020-05-31] MEDS: GUAIFENESIN 600 MG TABLET.SA PO SCH (22:19)
[2020-05-31] MEDS: FAMOTIDINE 20 MG TABLET PO SCH (22:19)
[2020-05-31] MEDS: ATORVASTATIN CALCIUM 80 MG TABLET PO SCH (22:19)
[2020-05-31] MEDS: ASPIRIN 81 MG TABLET, ENT COATED PO SCH (22:19)
[2020-05-31] MEDS ORDERED: AZITHROMYCIN INJ 500 MG VIAL IV PRN (22:23)
[2020-05-31] MEDS: METHYLPREDNISOLONE INJ 40 MG/1 ML SDV IV SCH (22:23)
[2020-06-01] MEDS: IPRATROPIUM BROMIDE 0.02% NEB 0.5 MG/2.5 ML AMPUL NEB SCH ×3 (01:10→15:54)
[2020-06-01] MEDS: LEVALBUTEROL HCL NEB 1.25 MG/3 ML AMPUL NEB SCH ×3 (01:10→15:54)
[2020-06-01] MEDS ORDERED: AZITHROMYCIN INJ 500 MG VIAL IV ONE (01:31)
[2020-06-01 05:56] LABS: ABSOLUTE LYMPHOCYTES (AUTO) 0.7 10^3/uL (0.5-4.7); ABSOLUTE MONOCYTES (AUTO) 0.1 10^3/uL (0.1-1.4); ABSOLUTE NEUT (AUTO) 4.7 10^3/uL (1.7-8.2); BASOPHILS % (AUTO) 0.7 % (0-2); EOSINOPHILS % (AUTO) 0.3 % (0-6); HEMATOCRIT 32.3 % (36.0-47.0); LYMPHOCYTES % (AUTO) 12.4 % (13-45); MEAN CORPUSCULAR HEMOGLOBIN 30.2 pg (27.0-33.4); MEAN CORPUSCULAR HGB CONC 33.9 g/dL (32.0-36.0); MEAN CORPUSCULAR VOLUME 89 fl (80-97); MONOCYTES % (AUTO) 1.1 % (3-13); PLATELET COUNT 242 10^3/uL (150-450); RED BLOOD COUNT 3.63 10^6/uL (3.72-5.28); RED CELL DISTRIBUTION WIDTH 17.4 % (11.5-14.0); SEGMENTED NEUTROPHILS % (AUTO) 85.5 % (42-78); TOTAL CELLS COUNTED % (AUTO) 100 %; WHITE BLOOD COUNT 5.5 10^3/uL (4.0-10.5)
[2020-06-01] MEDS: LEVOTHYROXINE SODIUM 0.1 MG TABLET PO SCH (06:15)
[2020-06-01 06:25] LABS: ANION GAP 13 (5-19); BLOOD UREA NITROGEN 47 mg/dL (7-20); CARBON DIOXIDE 19 mmol/L (22-30); CHLORIDE 103 mmol/L (98-107); GLUCOSE 177 mg/dL (75-110); POTASSIUM 4.6 mmol/L (3.6-5.0)
--- NOTE | 2020-06-01 09:00 | EKG REPORT ---
SEVERITY:- ABNORMAL ECG - ATRIAL FIBRILLATION, V-RATE 82-153 ABNORMAL T, CONSIDER ISCHEMIA, DIFFUSE LEADS : Confirmed by: Sánchez Santana MD 01-Jun-2020 09:00:05
[2020-06-01] MEDS: BUDESONIDE NEB 0.5 MG/2 ML AMPUL NEB SCH (09:02)
[2020-06-01] MEDS ORDERED: METOPROLOL SUCCINATE 50 MG TAB.SR.24H PO SCH (10:00)
[2020-06-01] MEDS ORDERED: AMLODIPINE BESYLATE 10 MG TABLET PO SCH (10:00)
[2020-06-01] MEDS ORDERED: CEFTRIAXONE 1 GM/D5W RTU 1 GM/50 ML RTUPB IV SCH (10:00)
[2020-06-01] MEDS ORDERED: DILTIAZEM HCL INJ 25 MG/5 ML VIAL IV PRN ×2 (10:00→10:17)
[2020-06-01] MEDS ORDERED: DEXAMETHASONE SOD PHOS INJ 10 MG/1 ML VIAL IV ONE (10:01)
[2020-06-01] MEDS: LOSARTAN POTASSIUM 50 MG TABLET PO SCH ×2 (10:56→22:35)
[2020-06-01] MEDS: GUAIFENESIN 600 MG TABLET.SA PO SCH ×2 (10:57→21:36)
[2020-06-01] MEDS: METHYLPREDNISOLONE INJ 40 MG/1 ML SDV IV SCH ×2 (10:57→21:36)
[2020-06-01] MEDS: FAMOTIDINE 20 MG TABLET PO SCH ×2 (10:57→21:36)
[2020-06-01] MEDS: POLYETHYLENE GLYCOL 3350 POWDER 17 GM/1 PACKET PO SCH (10:57)
[2020-06-01] MEDS: DILTIAZEM HCL 60 MG TABLET PO SCH ×3 (12:09→23:24)
--- NOTE | 2020-06-01 13:11 | EKG REPORT ---
SEVERITY:- ABNORMAL ECG - ATRIAL FIBRILLATION WITH RAPID V-RATE REPOLARIZATION ABNORMALITY, PROB RATE RELATED : Confirmed by: Sánchez Santana MD 01-Jun-2020 13:11:00
[2020-06-01 13:56] LABS: APPEARANCE,URINE CLEAR; BILIRUBIN,URINE NEGATIVE (NEGATIVE); COLOR,URINE YELLOW; GLUCOSE, URINE NEGATIVE (NEGATIVE); KETONES,URINE NEGATIVE (NEGATIVE); LEUKOCYTE ESTERASE,URINE TRACE (NEGATIVE); NITRITE,URINE NEGATIVE (NEGATIVE); PROTEIN,URINE NEGATIVE (NEGATIVE); URINE SPECIFIC GRAVITY 1.018; UROBILINOGEN,URINE NEGATIVE mg/dL (<2.0)
[2020-06-01] MEDS ORDERED: DILTIAZEM HCL INJ 25 MG/5 ML VIAL IV ONE (14:00)
[2020-06-01] MEDS ORDERED: HEPARIN SOD (PORCINE) 1,000 UNIT/ML 10 ML VIAL IV ONE (15:35)
--- NOTE | 2020-06-01 15:43 | PDOC PROGRESS REPORT ---
Subjective Date:: 06/01/20 Subjective:: Patient felt very short of breath this morning with a heart rate spiking into th e 170s sustained. She was also very labored breathing at this time. She had received a breathing treatment not too long before the incident. Reason For Visit: GERD,SWALLOWING DYSFUNCTION,RIGHT LOWER LOBE Physical Exam Vital Signs: Temp Pulse Resp BP Pulse Ox 97.4 F 100 20 112/58 L 100 06/01/20 10:00 06/01/20 14:00 06/01/20 12:20 06/01/20 12:20 06/01/20 12:20 Intake & Output 05/31/20 06/01/20 06/02/20 06:59 06:59 06:59 Intake Total 350 350 Balance 350 350 Weight 65.4 kg General appearance: PRESENT: cooperative, other - Moderate distress Head exam: PRESENT: normocephalic Eye exam: PRESENT: EOMI Neck exam: ABSENT: JVD Respiratory exam: PRESENT: accessory muscle use, prolonged expiratory phas, symmetrical, tachypnea, wheezes - bilateral inspiratory. ABSENT: unlabored Cardiovascular exam: PRESENT: +S1, +S2, tachycardia. ABSENT: RRR GI/Abdominal exam: PRESENT: soft. ABSENT: rebound, rigid, tenderness Neurological exam: PRESENT: alert, awake, oriented to person, oriented to place, oriented to time Psychiatric exam: ABSENT: agitated, anxious Results Laboratory Results: 06/01/20 05:22 06/01/20 05:22 05/31/20 05/31/20 05/31/20 15:50 15:50 15:50 WBC 7.2 RBC 4.16 Hgb 12.3 Hct 36.9 MCV 89 MCH 29.5 MCHC 33.3 RDW 17.7 H Plt Count 268 Seg Neutrophils % 69.0 Sodium 137.1 Potassium 5.0 Chloride 103 Carbon Dioxide 21 L Anion Gap 13 BUN 46 H Creatinine 2.51 H Est GFR ( Amer) 22 L Glucose 107 Calcium 9.9 Magnesium 2.1 Total Bilirubin 0.9 AST 37 H Alkaline Phosphatase 74 Total Protein 6.8 Albumin 4.1 TSH Urine Color Urine Appearance Urine pH Ur Specific [place] Urine Protein Urine Glucose (UA) Urine Ketones Urine Blood Urine Nitrite Ur Leukocyte Esterase Urine WBC (Auto) Urine RBC (Auto) 06/01/20 06/01/20 06/01/20 05:22 05:22 05:22 WBC 5.5 RBC 3.63 L Hgb 11.0 L Hct 32.3 L MCV 89 MCH 30.2 MCHC 33.9 RDW 17.4 H Plt Count 242 Seg Neutrophils % 85.5 H Sodium 135.3 L Potassium 4.6 Chloride 103 Carbon Dioxide 19 L Anion Gap 13 BUN 47 H Creatinine 2.59 H Est GFR ( Amer) 21 L Glucose 177 H Calcium 9.0 Magnesium Total Bilirubin AST Alkaline Phosphatase Total Protein Albumin TSH 0.85 Urine Color Urine Appearance Urine pH Ur Specific [place] Urine Protein Urine Glucose (UA) Urine Ketones Urine Blood Urine Nitrite Ur Leukocyte Esterase Urine WBC (Auto) Urine RBC (Auto) 06/01/20 12:15 WBC RBC Hgb Hct MCV MCH MCHC RDW Plt Count Seg Neutrophils % Sodium Potassium Chloride Carbon Dioxide Anion Gap BUN Creatinine Est GFR ( Amer) Glucose Calcium Magnesium Total Bilirubin AST Alkaline Phosphatase Total Protein Albumin TSH Urine Color YELLOW Urine Appearance CLEAR Urine pH 5.0 Ur Specific [place] 1.018 Urine Protein NEGATIVE Urine Glucose (UA) NEGATIVE Urine Ketones NEGATIVE Urine Blood NEGATIVE Urine Nitrite NEGATIVE Ur Leukocyte Esterase TRACE H Urine WBC (Auto) 1 Urine RBC (Auto) 10 05/31/20 05/31/20 05/31/20 15:50 15:50 21:34 Troponin I 0.037 0.038 NT-Pro-B Natriuret Pep 7000 H 06/01/20 05:22 Troponin I 0.030 NT-Pro-B Natriuret Pep Impressions: Chest X-Ray 05/31/20 14:34 IMPRESSION: Right hilar fullness again noted. Recommend CT for more complete characterization. Minimal right basilar opacities, possibly atelectasis or infection. Chest CT 05/31/20 15:37 IMPRESSION: Marked mediastinal and right hilar adenopathy highly concerning for neoplasm such as lymphoma. Small right pleural effusion with mild associated atelectasis. Scoliosis. Assessment and Plan - Diagnosis (1) Mediastinal mass Is this a current diagnosis for this admission?: Yes Plan: Patient has large mediastinal and right hilar masses likely lymphadenopathy and it seems to be compressing her right lower lobe bronchus which is playing a large role in patient's shortness of breath. Small partial atelectasis noted in the right lower lobe as well as small pleural effusion. There is concern for lymphoma. I have consulted oncology (2) Right lower lobe pulmonary infiltrate Is this a current diagnosis for this admission?: Yes Plan: Suspected on initial x-ray but not evident on CT. I have reviewed patient's CT chest imaging and I do not see any pneumonia. Patient however is at risk of getting a postobstructive pneumonia as this seems to be right lower lobe bronchus compression. (3) COPD exacerbation Is this a current diagnosis for this admission?: Yes Plan: Has significant wheezing bilaterally. We did have to put patient on the BiPAP due to work of breathing after which she seemed to get better. Continue breathing treatments, doxycycline and pulmonary toileting. (4) Paroxysmal atrial fibrillation with rapid ventricular response Is this a current diagnosis for this admission?: Yes Plan: Patient received a dose of diltiazem IV 20 mg followed by another 10 mg of IV diltiazem. Currently had to be placed on the diltiazem drip w/ po diltiazem. Beta-blockers on hold for now given bronchospasms. I will discontinue her Xarelto and start low cardiac dose Heparin gtt in anticipation that she will need biopsy Dr. Valdes consulted (5) Hypertension Qualifiers: Hypertension type: essential hypertension Qualified Code(s): I10 - Essential (primary) hypertension Is this a current diagnosis for this admission?: Yes (6) Hypothyroidism Qualifiers: Hypothyroidism type: unspecified Qualified Code(s): E03.9 - Hypothyroidism, unspecified Is this a current diagnosis for this admission?: Yes Plan: TSH is adequate (7) Kidney disease, chronic, stage IV (GFR 15-29 ml/min) Is this a current diagnosis for this admission?: Yes Plan: No response with IVF. Will moniotor. No far from baseline quite frankly. - Time Time Spent with patient: 25-34 minutes Total Critical Time (Minutes): 32 Anticipated Discharge Disposition: Home, Self Care Anticipated Discharge Timeframe: >72hr
[2020-06-01] MEDS: DILTIAZEM HCL/D5W 125 MG/125 ML RTUINJ IV PRN (16:13)
[2020-06-01] MEDS ORDERED: RIVAROXABAN 15 MG TABLET PO SCH (17:00)
[2020-06-01 17:16] LABS: ABSOLUTE LYMPHOCYTES (AUTO) 0.7 10^3/uL (0.5-4.7); ABSOLUTE MONOCYTES (AUTO) 0.2 10^3/uL (0.1-1.4); ABSOLUTE NEUT (AUTO) 8.3 10^3/uL (1.7-8.2); BASOPHILS % (AUTO) 0.2 % (0-2); HEMATOCRIT 31.1 % (36.0-47.0); HEMOGLOBIN 10.5 g/dL (12.0-15.5); LYMPHOCYTES % (AUTO) 7.3 % (13-45); MEAN CORPUSCULAR HEMOGLOBIN 30.2 pg (27.0-33.4); MEAN CORPUSCULAR HGB CONC 33.8 g/dL (32.0-36.0); MEAN CORPUSCULAR VOLUME 89 fl (80-97); MONOCYTES % (AUTO) 1.7 % (3-13); PLATELET COUNT 257 10^3/uL (150-450); RED BLOOD COUNT 3.49 10^6/uL (3.72-5.28); RED CELL DISTRIBUTION WIDTH 17.6 % (11.5-14.0); SEGMENTED NEUTROPHILS % (AUTO) 90.8 % (42-78); TOTAL CELLS COUNTED % (AUTO) 100 %; WHITE BLOOD COUNT 9.1 10^3/uL (4.0-10.5)
[2020-06-01 17:26] LABS: INTERNATIONAL RATION (INR) 1.34; PROTHROMBIN TIME 16.7 SEC (11.4-15.4)
[2020-06-01 17:27] LABS: PARTIAL THROMBOPLASTIN TIME 27.4 SEC (23.5-35.8)
[2020-06-01] MEDS ORDERED: BENZOCAINE/MENTHOL SORE THROAT LOZENGE BUCCAL PRN (17:29)
[2020-06-01] MEDS: HEPARIN SODIUM,PORCINE/D5W 25,000 UNIT/250 ML RTUINJ IV PRN (17:39)
[2020-06-01 17:50] LABS: FREE T3 2.04 pg/mL (2.77-5.27); FREE T4 (FREE THYROXINE) 2.02 ng/dL (0.78-2.19)
[2020-06-01] MEDS ORDERED: HEPARIN SOD (PORCINE) 1,000 UNIT/ML 10 ML VIAL IV PRN (18:35)
[2020-06-01] MEDS: ASPIRIN 81 MG TABLET, ENT COATED PO SCH (21:36)
[2020-06-01] MEDS: ATORVASTATIN CALCIUM 80 MG TABLET PO SCH (21:36)
[2020-06-01] MEDS: DOXYCYCLINE HYCLATE 100 MG TABLET PO SCH (21:39)
[2020-06-01] MEDS ORDERED: DILTIAZEM HCL 60 MG TABLET PO ONE (22:30)
[2020-06-01] MEDS: MELATONIN 5 MG TABLET PO PRN (22:36)
--- NOTE | 2020-06-01 23:18 | PDOC CONSULTATION ---
Consultation-Blank Consultation: CARDIOLOGY PROGRESS NOTE by Dr. Keiko Moya on 06/01/2020. Patient seen at 3:00 PM. 60 minutes spent with the patient with more than 50% of time spent in direct patient care. REASON FOR CONSULTATION: Patient with persistent atrial fibrillation with rapid ventricular response. Associated with shortness of breath and dysphonia. CONSULT REQUESTING PHYSICIAN[facility] HISTORY OF PRESENT ILLNESS: Patient is a 84-year-old female with known history of persistent atrial fibrillation, chronic kidney disease stage IV, hypertension, hypothyroidism on replacement,, history of coronary artery disease old myocardial infarction and history of coronary bypass Surgery who states since the past several weeks has been having dry cough. She is also been coughing which is productive of scanty white sputum. She denies any fever chills or rigors or chest pain. She is also aware at times of rapid palpitation. In the today her heart rate spiked in the 170s, with the monitor showing atrial fibrillation with rapid ventricular response. She was started on IV Cardizem drip and her heart rate is much improved. She also states since his several weeks she has been having hoarseness of voice. Her CT scan of the chest shows a possible right lower lobe pneumonia with a small pleural effusion, and also significant mediastinal and hilar lymphadenopathy. The question is whether the patient's dysphonia is secondary to the patient's lymph node pressing on the right lower lobe bronchus which could explain the infiltrate to be more due to compressive atelectasis rather than pneumonia. Her work-up for strep throat and coronavirus have all been negative. She denies any chest pain or discomfort. There is no palpitations or syncope or near syncope. Awaiting hematology consult regarding the patient's possible significant lymphadenopathy secondary to lymphoma. Past Medical History Cardiac Medical History: Reports: Coronary Artery Disease, Myocardial Infarction - 4 YRS, Hypertension - ATACARD,METOPROLOL, PLENDIL Pulmonary Medical History: Denies: Asthma, Bronchitis, Chronic Obstructive Pulmonary Disease (COPD), Pneumonia Neurological Medical History: Denies: Seizures GI Medical History: Denies: Hepatitis, Hiatal Hernia Musculoskeltal Medical History: Reports: Arthritis Psychiatric Medical History: Reports: Tobacco Dependency Hematology: Reports: Anemia Denies: Sickle Cell Disease Past Surgical History Past Surgical History: Reports: Appendectomy, Coronary Artery Bypass Graft Denies: Amputation, Hysterectomy, Mastectomy, Pacemaker RESUSCITATION STATUS: The patient is a full code. The patient's is her surrogate healthcare decision maker. Social History Information Source: Patient, [facility] Records Lives with: Spouse/Significant other Smoking Status: Former Smoker Electronic Cigarette use?: No Frequency of Alcohol Use: None Hx Recreational Drug Use: No Hx Prescription Drug Abuse: No - Advance Directive Resuscitation Status: Full Code Surrogate healthcare decision maker:: Patient's is the designated decision maker. He is at the bedside. Family History Family History: CAD, Other - Kidney disease Parental Family History Reviewed: Yes Children Family History Reviewed: NA Sibling(s) Family History Reviewed.: Yes Medication/Allergy Home Medications: Aspirin [Ecotrin 81 mg EC Tablet] 81 mg PO DAILY 04/04/11 Felodipine [Plendil] 10 mg PO DAILY 04/04/11 Levothyroxine Sodium [Synthroid 100 Mcg Tablet] 100 mcg PO DAILY 04/04/11 Metoprolol Succinate [Toprol-Xl 50 Mg Tab.Sr] 50 mg PO DAILY 04/04/11 Candesartan Cilexetil [Atacand 16 mg Tablet] 1 tab PO BID 08/11/16 Krill/Om-3/Dha/Epa/Phospho/Ast [Megared [place]-3 Krill Oil Sfgl] 1 cap PO DAILY 08/11/16 Polyethylene Glycol 3350 [Miralax Powder 17 gm/Packet] 1 packet PO DAILY 08/11/16 Rivaroxaban [Xarelto 15 mg Tablet] 1 tab PO DAILY 08/11/16 Rosuvastatin Calcium [Crestor 20 mg Tablet] 1 tab PO DAILY 08/11/16 Methylprednisolone [Medrol Dosepack (4 mg/Tab) 21 Tab/Dosepak] 4 mg PO ASDIR PRN #21 tab.ds.pk 05/13/20 Allergies/Adverse Reactions: Sulfa (Sulfonamide Antibiotics) Allergy (Verified 05/13/20 14:41) IVP DYE Allergy (Uncoded 01/25/11 12:23) Current Medications Generic Name Dose Route Start Last Admin Trade Name Freq PRN Reason Stop Dose Admin Acetaminophen 650 mg 05/31/20 19:32 Acetaminophen 325 Mg Tablet PO 06/30/20 19:31 Q4HP PRN pain or temp greater than 101F Amlodipine Besylate 10 mg 06/01/20 10:00 12/29/20 10:56 Amlodipine Besylate 10 Mg Tablet PO 07/01/20 09:59 Not Given DAILY DIONNE Aspirin 81 mg 05/31/20 22:00 06/01/20 21:36 Aspirin 81 Mg Tablet, Ent Coated PO 06/30/20 21:59 81 mg QHS DIONNE Administration Atorvastatin Calcium 80 mg 05/31/20 22:00 06/01/20 21:36 Atorvastatin Calcium 80 Mg Tablet PO 06/30/20 21:59 80 mg QHS DIONNE Administration Budesonide 0.5 mg 06/01/20 08:00 06/01/20 09:02 Budesonide Neb 0.5 Mg/2 Ml Ampul NEB 07/01/20 07:59 0.5 mg RTDAILY DIONNE Administration Diltiazem HCl 20 mg 06/01/20 10:17 06/01/20 10:27 Diltiazem Hcl Inj 25 Mg/5 Ml Vial IV 07/01/20 09:59 20 mg ONCEP PRN Administration HR>150 Diltiazem HCl 60 mg 06/01/20 12:30 06/01/20 17:42 Diltiazem Hcl 60 Mg Tablet PO 07/01/20 12:29 60 mg Q6 DIONNE Administration Doxycycline Hyclate 100 mg 06/01/20 22:00 06/01/20 21:39 Doxycycline Hyclate 100 Mg Tablet PO 06/08/20 21:59 100 mg Q12 DIONNE Administration Famotidine 20 mg 05/31/20 22:00 06/01/20 21:36 Famotidine 20 Mg Tablet PO 06/30/20 21:59 20 mg Q12 DIONNE Administration Guaifenesin 600 mg 05/31/20 22:00 06/01/20 21:36 Guaifenesin 600 Mg Tablet.Sa PO 06/30/20 21:59 600 mg Q12 DIONNE Administration Guaifenesin 200 mg 05/31/20 19:32 Guaifenesin Syrp 200 Mg/10 Ml Udc PO 06/30/20 19:31 Q4HP PRN COUGH Heparin Sodium (Porcine) 0 - 12,000 unit 06/01/20 18:35 Heparin Sod (Porcine) 1,000 Unit/Ml 10 Ml Vial IV 07/01/20 18:34 .BOLUS PER PROTOCOL PRN RESPOND TO aPTT VALUE Protocol Diltiazem HCl 125 mg in 125 mls @ 0 mls/hr 06/01/20 12:56 06/01/20 21:20 Cardizem Rtu Inj 125 Mg-D5w 125 Ml Premix IV 07/01/20 12:55 2.5 mls/hr CONTINUOUS PRN 2.5 mls/hr THIS MED IS NOT "PRN" Titration Protocol Titrate Heparin Sodium/Dextrose 25,000 unit in 250 mls @ 0 mls/hr 06/01/20 15:35 06/01/20 17:39 Heparin Rtu 25,000 Unit/250 Ml D5w Premix IV 07/01/20 15:34 7.84 mls/hr CONTINUOUS PRN 7.84 mls/hr THIS MED IS NOT "PRN" Administration Protocol Titrate Ipratropium [place] 0.5 mg 06/01/20 00:00 06/01/20 15:54 Ipratropium [place] 0.02% Neb 0.5 Mg/2.5 Ml Ampul NEB 07/01/20 00:00 0.5 mg RTQ8 DIONNE Administration Levalbuterol HCl 1.25 mg 06/01/20 00:00 06/01/20 15:54 Levalbuterol Hcl Neb 1.25 Mg/3 Ml Ampul NEB 07/01/20 00:00 1.25 mg RTQ8 DIONNE Administration Levalbuterol HCl 1.25 mg 05/31/20 19:32 06/01/20 10:28 Levalbuterol Hcl Neb 1.25 Mg/3 Ml Ampul NEB 06/30/20 19:31 1.25 mg RTQ4HP PRN Administration SHORTNESS OF BREATH Levothyroxine Sodium 0.1 mg 06/01/20 06:00 06/01/20 06:15 Levothyroxine Sodium 0.1 Mg Tablet PO 07/01/20 05:59 0.1 mg Q6AM DIONNE Administration Losartan Potassium 50 mg 05/31/20 22:00 06/01/20 22:35 Losartan Potassium 50 Mg Tablet PO 06/30/20 21:59 Not Given Q12 DIONNE Melatonin 10 mg 06/01/20 21:15 06/01/20 22:36 Melatonin 5 Mg Tablet PO 07/01/20 21:14 10 mg HSP PRN Administration FOR SLEEP Methylprednisolone Sodium Succinate 40 mg 05/31/20 22:00 06/01/20 21:36 Methylprednisolone Inj 40 Mg/1 Ml Sdv IV 06/02/20 21:59 40 mg Q12 DIONNE Administration Polyethylene Glycol 17 gm 06/01/20 10:00 06/01/20 10:57 Polyethylene Glycol 3350 Powder 17 Gm/1 Packet PO 07/01/20 09:59 Not Given DAILY DIONNE Sodium Chloride 2.5 ml 05/31/20 22:00 06/01/20 21:36 Normal Saline Flush 2.5 Ml Disp.Syrin IV 06/30/20 21:59 2.5 ml Q8 DIONNE Administration Throat Lozenges 2 each 06/01/20 17:29 06/01/20 18:59 Benzocaine/Menthol Sore Throat Lozenge BUCCAL 07/01/20 17:28 2 each Q4HP PRN Administration FOR SORE THROAT Discontinued Medications Generic Name Dose Route Start Last Admin Trade Name Freq PRN Reason Stop Dose Admin Albuterol/Ipratropium 3 ml 05/31/20 14:53 05/31/20 15:15 Ipratropium/Albuterol 0.5-2.5 Mg/3 Ml Ampul NEB 05/31/20 14:54 3 ml NOW ONE Administration Azithromycin 500 mg 05/31/20 22:23 Azithromycin Inj 500 Mg Vial IV 06/01/20 07:00 ASDIR PRN Azithromycin Confirm 06/01/20 01:31 06/01/20 02:56 Azithromycin Inj 500 Mg Vial Administered 06/01/20 01:32 Not Given Dose 500 mg IV .STK-MED ONE Benzonatate 100 mg 05/31/20 14:58 05/31/20 15:12 Benzonatate 100 Mg Capsule PO 05/31/20 14:59 100 mg NOW ONE Administration Bumetanide 0.5 mg 05/31/20 15:08 05/31/20 15:56 Bumetanide Inj/Pf 1 Mg/4 Ml Sdv IV 05/31/20 15:09 0.5 mg NOW ONE Administration Dexamethasone Sodium Phosphate 10 mg 05/31/20 15:22 05/31/20 20:44 Dexamethasone Sod Phos Inj 10 Mg/1 Ml Vial IV 05/31/20 15:23 Not Given NOW ONE Dexamethasone Sodium Phosphate 10 mg 05/31/20 20:45 05/31/20 20:47 Dexamethasone Sod Phos Inj 10 Mg/1 Ml Vial IV 05/31/20 20:46 10 mg NOW ONE Administration Dexamethasone Sodium Phosphate 8 mg 06/01/20 10:01 06/01/20 10:07 Dexamethasone Sod Phos Inj 10 Mg/1 Ml Vial IV 06/01/20 10:02 8 mg NOW ONE Administration Diltiazem HCl 10 mg 06/01/20 10:00 Diltiazem Hcl Inj 25 Mg/5 Ml Vial IV 07/01/20 09:59 ONCEP PRN HR>150 Diltiazem HCl 10 mg 06/01/20 14:00 06/01/20 13:45 Diltiazem Hcl Inj 25 Mg/5 Ml Vial IV 06/01/20 14:01 10 mg NOW ONE Administration Diltiazem HCl 60 mg 06/01/20 22:30 06/01/20 22:36 Diltiazem Hcl 60 Mg Tablet PO 06/01/20 22:31 60 mg NOW ONE Administration Diphenhydramine HCl 12.5 mg 05/31/20 15:22 05/31/20 20:18 Diphenhydramine Hcl 50 Mg/Ml Vial IV 05/31/20 15:23 Not Given NOW ONE Heparin Sodium (Porcine) 3,900 unit 06/01/20 15:35 Heparin Sod (Porcine) 1,000 Unit/Ml 10 Ml Vial 60 unit/kg (3900 unit) 06/01/20 15:36 IV NOW ONE Levofloxacin/Dextrose 500 mg in 100 mls @ 100 mls/hr 05/31/20 17:16 05/31/20 20:44 Levaquin Rtu 500mg/D5w 100 Ml Premix IV 05/31/20 18:15 Not Given NOW ONE Sodium Chloride 1,000 mls @ 100 mls/hr 05/31/20 19:32 06/01/20 02:57 Nacl 0.9% 1000 Ml Iv Soln IV 06/30/20 19:31 100 mls/hr CONTINUOUS PRN Administration THIS MED IS NOT "PRN" Ceftriaxone Sodium/Dextrose 1 gm in 50 mls @ 100 mls/hr 06/01/20 10:00 06/01/20 10:40 Rocephin Rtu 1 Gm/D5w 50 Ml Premix IV 06/08/20 09:59 Infused DAILY DIONNE Infusion Azithromycin 500 mg/ Dextrose 250 mls @ 250 mls/hr 05/31/20 22:00 06/01/20 03:55 IV 06/07/20 21:59 Infused QHS DIONNE Infusion Levofloxacin/Dextrose 500 mg in 100 mls @ 100 mls/hr 05/31/20 20:45 05/31/20 21:57 Levaquin Rtu 500mg/D5w 100 Ml Premix IV 05/31/20 21:44 Infused NOW ONE Infusion Metoprolol Succinate 50 mg 06/01/20 10:00 06/01/20 12:46 Metoprolol Succinate 50 Mg Tab.Sr.24h PO 07/01/20 09:59 Not Given DAILY DIONNE Metoprolol Tartrate 12.5 mg 05/31/20 20:45 05/31/20 20:48 Metoprolol Tartrate 25 Mg Tablet PO 05/31/20 20:46 12.5 mg NOW ONE Administration Metoprolol Tartrate 2.5 mg 05/31/20 20:04 06/01/20 02:26 Metoprolol Tartrate Pf/Inj 5 Mg/5 Ml Sdv IV 06/30/20 20:03 2.5 mg Q6HP PRN Administration Heart rate greater than 110 Rivaroxaban 15 mg 06/01/20 17:00 Rivaroxaban 15 Mg Tablet PO 07/01/20 16:59 [facility] Vancomycin HCl 1,000 mg 05/31/20 17:15 05/31/20 20:44 Vancomycin Hcl Inj 1000 Mg Vial IV 05/31/20 17:16 Not Given NOW ONE Vancomycin HCl 1,000 mg 05/31/20 20:45 05/31/20 22:04 Vancomycin Hcl Inj 1000 Mg Vial IV 05/31/20 20:46 1,000 mg NOW ONE Administration Review of Systems CONSTITUTIONAL: Complains of fatigue and generalized weakness. No fever chills or rigors. HEAD: Denies headaches or head injury. EYES: No severe appropriate diplopia. No amaurosis fugax. EARS: No history of tinnitus. No history of vertigo. NOSE: No history of hayfever. No nosebleeds. MOUTH: No history of altered taste sensation. No bleeding from the gums. THROAT: History of sore throat and history of dysphagia and dysphonia present but no odynophagia. Cardiovascular: PRESENT: dyspnea on exertion. History of chronic persistent atrial fibrillation at present with rapid palpitations this morning. She has no anginal symptoms. There is no dizziness or syncope or near syncope. Respiratory: PRESENT: cough, dyspnea Gastrointestinal: PRESENT: abdominal pain. No nausea no diarrhea. Decreased appetite present. No GI bleed. She does have significant history of GERD. Endocrine: No history of diabetes mellitus. Patient does have a history of hypothyroidism. She is on replacement thyroid and thyroid function tests are normal. 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 RENAL: She has history of chronic kidney disease stage III. Denies hematuria pyuria or dysuria. No symptoms suggestive of urinary tract infection. Metabolic: Denies history of gout. No history of obesity. SUBWAY CONDUCTOR: No history of headaches migraines or seizures. No history of focal weaknesses. PSYCHIATRIC: No history of homicidal ideation or suicidal ideation. Does not appear to be anxious or depressed. SKIN: No history of pruritus. No LH discoloration of skin. No easy bruisability. HEMATOLOGICAL: Denies history of hematological malignancies although the patient has generalized lymph node enlargement which is being worked up. PHYSICAL EXAMINATION: The patient is well-built. In mild distress due to shortness of breath and coughing and stridor. Selected Entries 06/01/20 15:27 Temperature 98.3 F Temperature Oral Source Pulse Rate [ 112 H Right Finger] Respiratory 28 H Rate Blood Pressure 115/56 L [Left Upper Arm ] Blood Pressure 75 Mean [Left Upper Arm] Blood Pressure Supine Position [Left Upper Arm] O2 Sat by Pulse 98 Oximetry Oxygen Delivery Nasal Cannula Method ( includes room air) Oxygen Flow 3 Rate Neck: Is atraumatic normocephalic. EYES: Pupils are equal round regular reactive light accommodation. Extraocular movements are normal. There is no conjunctival pallor. There is no scleral icterus. NOSE: There is no deviated nasal septum. There is no inflammation nasal mucous membrane. EARS: Tympanic membranes are intact external auditory canals are clear. MOUTH: Mucous membranes of mouth are moist. Tongue is moist. There is no ulcers. There is no bleeding from the gums. THROAT: There is no redness of the oropharynx. There is no exudates. SKIN: There is no skin rashes. There is no skin lesions. There is no skin rashes. NECK: Is supple. There is no JVD. There is no accessory muscles of respiration use.. There is no lymphadenopathy. There is no goiter. Trachea central. LUNGS: There is by inspiratory stridor present. There is bilateral inspiratory and expiratory wheezing. There is scattered rhonchi. No rales of CHF. HEART: S1-S2 is heard. There is no S3 gallop. There is no S4 gallop. There is no rub. S1 is of variable intensity. There is systolic murmur left sternal border and the apex. ABDOMEN: Soft. Nontender. There is no paraspinal megaly. Bowel sounds are well heard. EXTREMITIES: Femorals are well felt. There is no femoral bruits. Leg pulses well felt. There is no pedal edema. There is no DVT or cellulitis. There is no calf tenderness. There is no cyanosis or clubbing. SUBWAY CONDUCTOR: The patient is conscious awake alert oriented x3 with no focal deficits. PSYCHIATRIC point: The patient judgment insight are intact and affect is normal. EKG on 05/31 and 06/01/2020 both show atrial fibrillation with rapid ventricular response and ST segment depression rate related. Labs- Entire Visit 05/31/20 05/31/20 05/31/20 15:50 15:50 15:50 WBC 7.2 RBC 4.16 Hgb 12.3 Hct 36.9 MCV 89 MCH 29.5 MCHC 33.3 RDW 17.7 H Plt Count 268 Lymph % (Auto) 22.4 [place] % (Auto) 6.3 Eos % (Auto) 1.5 Baso % (Auto) 0.8 Absolute Neuts (auto) 5.0 Absolute Lymphs (auto) 1.6 Absolute Monos (auto) 0.5 Absolute Eos (auto) 0.1 Absolute Basos (auto) 0.1 Seg Neutrophils % 69.0 PT INR APTT D-Dimer Sodium 137.1 Potassium 5.0 Chloride 103 Carbon Dioxide 21 L Anion Gap 13 BUN 46 H Creatinine 2.51 H Est GFR ( Amer) 22 L Est GFR (MDRD) Non-Af 18 L Glucose 107 Calcium 9.9 Magnesium Total Bilirubin 0.9 Direct Bilirubin 0.3 Neonat Total Bilirubin Not Reportable Neonat Direct Bilirubin Not Reportable Neonat Indirect Bili Not Reportable AST 37 H ALT 12 Alkaline Phosphatase 74 Troponin I NT-Pro-B Natriuret Pep 7000 H Total Protein 6.8 Albumin 4.1 TSH Free T4 Free T3 pg/mL Urine Color Urine Appearance Urine pH Ur Specific [place] Urine Protein Urine Glucose (UA) Urine Ketones Urine Blood Urine Nitrite Urine Bilirubin Urine Urobilinogen Ur Leukocyte Esterase Urine WBC (Auto) Urine RBC (Auto) U Hyaline Cast (Auto) Urine Bacteria (Auto) Squamous Epi Cells Auto Urine Mucus (Auto) Urine Ascorbic Acid Thierry Human Metapneumo PCR Adenovirus (PCR) B. pertussis DNA (PCR) B.parapertussis DNA PCR C. pneumoniae DNA (PCR) Coronavirus OC43 (PCR) Coronavirus HKU1 (PCR) Coronavirus 229E (PCR) Coronavirus NL63 (PCR) Influenza A (H1) PCR Influ A (H1N1/09) PCR Influenza A (H3) PCR Influenza Type A (PCR) Influenza Type B (PCR) M. pneumoniae (PCR) Parainfluenza 1 (PCR) Parainfluenza 2 (PCR) Parainfluenza 3 (PCR) Parainfluenza 4 (PCR) RSV (PCR) Entero/Rhino (PCR) SARS-CoV-2 (PCR) 05/31/20 05/31/20 05/31/20 15:50 15:50 15:50 WBC RBC Hgb Hct MCV MCH MCHC RDW Plt Count Lymph % (Auto) [place] % (Auto) Eos % (Auto) Baso % (Auto) Absolute Neuts (auto) Absolute Lymphs (auto) Absolute Monos (auto) Absolute Eos (auto) Absolute Basos (auto) Seg Neutrophils % PT INR APTT D-Dimer 0.99 H Sodium Potassium Chloride Carbon Dioxide Anion Gap BUN Creatinine Est GFR ( Amer) Est GFR (MDRD) Non-Af Glucose Calcium Magnesium 2.1 Total Bilirubin Direct Bilirubin Neonat Total Bilirubin Neonat Direct Bilirubin Neonat Indirect Bili AST ALT Alkaline Phosphatase Troponin I 0.037 NT-Pro-B Natriuret Pep Total Protein Albumin TSH Free T4 Free T3 pg/mL Urine Color Urine Appearance Urine pH Ur Specific [place] Urine Protein Urine Glucose (UA) Urine Ketones Urine Blood Urine Nitrite Urine Bilirubin Urine Urobilinogen Ur Leukocyte Esterase Urine WBC (Auto) Urine RBC (Auto) U Hyaline Cast (Auto) Urine Bacteria (Auto) Squamous Epi Cells Auto Urine Mucus (Auto) Urine Ascorbic Acid Thierry Human Metapneumo PCR Adenovirus (PCR) B. pertussis DNA (PCR) B.parapertussis DNA PCR C. pneumoniae DNA (PCR) Coronavirus OC43 (PCR) Coronavirus HKU1 (PCR) Coronavirus 229E (PCR) Coronavirus NL63 (PCR) Influenza A (H1) PCR Influ A (H1N1/) PCR Influenza A (H3) PCR Influenza Type A (PCR) Influenza Type B (PCR) M. pneumoniae (PCR) Parainfluenza 1 (PCR) Parainfluenza 2 (PCR) Parainfluenza 3 (PCR) Parainfluenza 4 (PCR) RSV (PCR) Entero/Rhino (PCR) SARS-CoV-2 (PCR) 05/31/20 05/31/20 06/01/20 21:28 21:34 05:22 WBC 5.5 RBC 3.63 L Hgb 11.0 L Hct 32.3 L MCV 89 MCH 30.2 MCHC 33.9 RDW 17.4 H Plt Count 242 Lymph % (Auto) 12.4 L [place] % (Auto) 1.1 L Eos % (Auto) 0.3 Baso % (Auto) 0.7 Absolute Neuts (auto) 4.7 Absolute Lymphs (auto) 0.7 Absolute Monos (auto) 0.1 Absolute Eos (auto) 0.0 Absolute Basos (auto) 0.0 Seg Neutrophils % 85.5 H PT INR APTT D-Dimer Sodium Potassium Chloride Carbon Dioxide Anion Gap BUN Creatinine Est GFR ( Amer) Est GFR (MDRD) Non-Af Glucose Calcium Magnesium Total Bilirubin Direct Bilirubin Neonat Total Bilirubin Neonat Direct Bilirubin Neonat Indirect Bili AST ALT Alkaline Phosphatase Troponin I 0.038 NT-Pro-B Natriuret Pep Total Protein Albumin TSH Free T4 Free T3 pg/mL Urine Color Urine Appearance Urine pH Ur Specific [place] Urine Protein Urine Glucose (UA) Urine Ketones Urine Blood Urine Nitrite Urine Bilirubin Urine Urobilinogen Ur Leukocyte Esterase Urine WBC (Auto) Urine RBC (Auto) U Hyaline Cast (Auto) Urine Bacteria (Auto) Squamous Epi Cells Auto Urine Mucus (Auto) Urine Ascorbic Acid Thierry Human Metapneumo PCR NOT DETECTED Adenovirus (PCR) NOT DETECTED B. pertussis DNA (PCR) NOT DETECTED B.parapertussis DNA PCR NOT DETECTED C. pneumoniae DNA (PCR) NOT DETECTED Coronavirus OC43 (PCR) NOT DETECTED Coronavirus HKU1 (PCR) NOT DETECTED Coronavirus 229E (PCR) NOT DETECTED Coronavirus NL63 (PCR) NOT DETECTED Influenza A (H1) PCR NOT DETECTED Influ A (H1N1/) PCR NOT DETECTED Influenza A (H3) PCR NOT DETECTED Influenza Type A (PCR) NOT DETECTED Influenza Type B (PCR) NOT DETECTED M. pneumoniae (PCR) NOT DETECTED Parainfluenza 1 (PCR) NOT DETECTED Parainfluenza 2 (PCR) NOT DETECTED Parainfluenza 3 (PCR) NOT DETECTED Parainfluenza 4 (PCR) NOT DETECTED RSV (PCR) NOT DETECTED Entero/Rhino (PCR) NOT DETECTED SARS-CoV-2 (PCR) NOT DETECTED 06/01/20 06/01/20 06/01/20 05:22 05:22 05:22 WBC RBC Hgb Hct MCV MCH MCHC RDW Plt Count Lymph % (Auto) [place] % (Auto) Eos % (Auto) Baso % (Auto) Absolute Neuts (auto) Absolute Lymphs (auto) Absolute Monos (auto) Absolute Eos (auto) Absolute Basos (auto) Seg Neutrophils % PT INR APTT D-Dimer Sodium 135.3 L Potassium 4.6 Chloride 103 Carbon Dioxide 19 L Anion Gap 13 BUN 47 H Creatinine 2.59 H Est GFR ( Amer) 21 L Est GFR (MDRD) Non-Af 18 L Glucose 177 H Calcium 9.0 Magnesium Total Bilirubin Direct Bilirubin Neonat Total Bilirubin Neonat Direct Bilirubin Neonat Indirect Bili AST ALT Alkaline Phosphatase Troponin I 0.030 NT-Pro-B Natriuret Pep Total Protein Albumin TSH 0.85 Free T4 Free T3 pg/mL Urine Color Urine Appearance Urine pH Ur Specific [place] Urine Protein Urine Glucose (UA) Urine Ketones Urine Blood Urine Nitrite Urine Bilirubin Urine Urobilinogen Ur Leukocyte Esterase Urine WBC (Auto) Urine RBC (Auto) U Hyaline Cast (Auto) Urine Bacteria (Auto) Squamous Epi Cells Auto Urine Mucus (Auto) Urine Ascorbic Acid Thierry Human Metapneumo PCR Adenovirus (PCR) B. pertussis DNA (PCR) B.parapertussis DNA PCR C. pneumoniae DNA (PCR) Coronavirus OC43 (PCR) Coronavirus HKU1 (PCR) Coronavirus 229E (PCR) Coronavirus NL63 (PCR) Influenza A (H1) PCR Influ A (H1N1/09) PCR Influenza A (H3) PCR Influenza Type A (PCR) Influenza Type B (PCR) M. pneumoniae (PCR) Parainfluenza 1 (PCR) Parainfluenza 2 (PCR) Parainfluenza 3 (PCR) Parainfluenza 4 (PCR) RSV (PCR) Entero/Rhino (PCR) SARS-CoV-2 (PCR) 06/01/20 06/01/20 06/01/20 12:15 16:03 16:03 WBC 9.1 RBC 3.49 L Hgb 10.5 L Hct 31.1 L MCV 89 MCH 30.2 MCHC 33.8 RDW 17.6 H Plt Count 257 Lymph % (Auto) 7.3 L [place] % (Auto) 1.7 L Eos % (Auto) 0.0 Baso % (Auto) 0.2 Absolute Neuts (auto) 8.3 H Absolute Lymphs (auto) 0.7 Absolute Monos (auto) 0.2 Absolute Eos (auto) 0.0 Absolute Basos (auto) 0.0 Seg Neutrophils % 90.8 H PT INR APTT D-Dimer Sodium Potassium Chloride Carbon Dioxide Anion Gap BUN Creatinine Est GFR ( Amer) Est GFR (MDRD) Non-Af Glucose Calcium Magnesium Total Bilirubin Direct Bilirubin Neonat Total Bilirubin Neonat Direct Bilirubin Neonat Indirect Bili AST ALT Alkaline Phosphatase Troponin I NT-Pro-B Natriuret Pep Total Protein Albumin TSH Free T4 2.02 Free T3 pg/mL 2.04 L Urine Color YELLOW Urine Appearance CLEAR Urine pH 5.0 Ur Specific [place] 1.018 Urine Protein NEGATIVE Urine Glucose (UA) NEGATIVE Urine Ketones NEGATIVE Urine Blood NEGATIVE Urine Nitrite NEGATIVE Urine Bilirubin NEGATIVE Urine Urobilinogen NEGATIVE Ur Leukocyte Esterase TRACE H Urine WBC (Auto) 1 Urine RBC (Auto) 10 U Hyaline Cast (Auto) 40 Urine Bacteria (Auto) TRACE Squamous Epi Cells Auto 6 Urine Mucus (Auto) RARE Urine Ascorbic Acid NEGATIVE Thierry Human Metapneumo PCR Adenovirus (PCR) B. pertussis DNA (PCR) B.parapertussis DNA PCR C. pneumoniae DNA (PCR) Coronavirus OC43 (PCR) Coronavirus HKU1 (PCR) Coronavirus 229E (PCR) Coronavirus NL63 (PCR) Influenza A (H1) PCR Influ A (H1N1/09) PCR Influenza A (H3) PCR Influenza Type A (PCR) Influenza Type B (PCR) M. pneumoniae (PCR) Parainfluenza 1 (PCR) Parainfluenza 2 (PCR) Parainfluenza 3 (PCR) Parainfluenza 4 (PCR) RSV (PCR) Entero/Rhino (PCR) SARS-CoV-2 (PCR) 06/01/20 06/01/20 16:03 22:06 WBC RBC Hgb Hct MCV MCH MCHC RDW Plt Count Lymph % (Auto) [place] % (Auto) Eos % (Auto) Baso % (Auto) Absolute Neuts (auto) Absolute Lymphs (auto) Absolute Monos (auto) Absolute Eos (auto) Absolute Basos (auto) Seg Neutrophils % PT 16.7 H INR 1.34 APTT 27.4 44.0 H D-Dimer Sodium Potassium Chloride Carbon Dioxide Anion Gap BUN Creatinine Est GFR ( Amer) Est GFR (MDRD) Non-Af Glucose Calcium Magnesium Total Bilirubin Direct Bilirubin Neonat Total Bilirubin Neonat Direct Bilirubin Neonat Indirect Bili AST ALT Alkaline Phosphatase Troponin I NT-Pro-B Natriuret Pep Total Protein Albumin TSH Free T4 Free T3 pg/mL Urine Color Urine Appearance Urine pH Ur Specific [place] Urine Protein Urine Glucose (UA) Urine Ketones Urine Blood Urine Nitrite Urine Bilirubin Urine Urobilinogen Ur Leukocyte Esterase Urine WBC (Auto) Urine RBC (Auto) U Hyaline Cast (Auto) Urine Bacteria (Auto) Squamous Epi Cells Auto Urine Mucus (Auto) Urine Ascorbic Acid Thierry Human Metapneumo PCR Adenovirus (PCR) B. pertussis DNA (PCR) B.parapertussis DNA PCR C. pneumoniae DNA (PCR) Coronavirus OC43 (PCR) Coronavirus HKU1 (PCR) Coronavirus 229E (PCR) Coronavirus NL63 (PCR) Influenza A (H1) PCR Influ A (H1N1/09) PCR Influenza A (H3) PCR Influenza Type A (PCR) Influenza Type B (PCR) M. pneumoniae (PCR) Parainfluenza 1 (PCR) Parainfluenza 2 (PCR) Parainfluenza 3 (PCR) Parainfluenza 4 (PCR) RSV (PCR) Entero/Rhino (PCR) SARS-CoV-2 (PCR) Chest X-Ray 05/31/20 14:34 IMPRESSION: Right hilar fullness again noted. Recommend CT for more complete characterization. Minimal right basilar opacities, possibly atelectasis or infection. Chest CT 05/31/20 15:37 IMPRESSION: Marked mediastinal and right hilar adenopathy highly concerning for neoplasm such as lymphoma. Small right pleural effusion with mild associated atelectasis. Scoliosis. IMPRESSION/RECOMMENDATION: 1. Atrial fibrillation with rapid ventricle response: Current continue IV Cardizem. Agree with starting the patient on p.o. Cardizem and increasing the p.o. Cardizem while decreasing the IV Cardizem infusion. Note that the patient's Xarelto has been held and the patient has been placed on heparin, in anticipation of for possible biopsy of lymph node. 2. Mediastinal and hilar lymphadenopathy of significance: The findings needs to be ruled out. Hematology consult requested. 3. Dysphonia and stridor: Whether this is secondary to tracheo- bronchitis acute, versus secondary to lymphadenopathy causing compression of the right lower lobe bronchus. This can also explain compressive atelectasis of the right lower lobe. But also the patient's symptoms of instability and expiratory wheezing and stridor can be explained by acute tracheobronchitis. Continue continue acute treatment of tracheobronchitis with the bronchodilators, steroids and antibiotics. 4. Right lower lobe infiltrate with a small pleural effusion:: Possible pneumonia. Patient is on antibiotics. 5. Hypertension: Patient blood pressure is well controlled continue current medication. 6. Hypothyroidism: Continue current replacement as thyroid functions tests suggest the patient be euthyroid on current replacement. This is definitely not the cause of the patient's atrial fibrillation with rapid ventricular response. 7. Chronic kidney disease stage IV: Recommend nephrology consult. 8. Coronary artery disease: History of old myocardial infarction and history of coronary bypass graft surgery: No evidence of no evidence of acute coronary syndrome or non-ST elevation SD. No anginal symptoms. Continue current treatment. Medications reviewed. Medical regiment and management plan discussed with attending provider on the case. Discussed with patient patient's . Medical decision making is of high complexity. 60 minutes spent as patient more than 50% time spent in direct patient care. Will follow.
[2020-06-02] MEDS: IPRATROPIUM BROMIDE 0.02% NEB 0.5 MG/2.5 ML AMPUL NEB SCH ×3 (00:45→16:10)
[2020-06-02] MEDS: LEVALBUTEROL HCL NEB 1.25 MG/3 ML AMPUL NEB SCH ×4 (00:46→19:53)
[2020-06-02] MEDS: LEVOTHYROXINE SODIUM 0.1 MG TABLET PO SCH (05:38)
[2020-06-02] MEDS: DILTIAZEM HCL 60 MG TABLET PO SCH ×4 (05:38→18:15)
[2020-06-02] MEDS ORDERED: LORAZEPAM INJ 2 MG/1 ML VIAL IV ONE (05:45)
[2020-06-02 06:29] LABS: HEMATOCRIT 33.8 % (36.0-47.0); HEMOGLOBIN 11.1 g/dL (12.0-15.5); MEAN CORPUSCULAR HGB CONC 32.9 g/dL (32.0-36.0); MEAN CORPUSCULAR VOLUME 88 fl (80-97); PLATELET COUNT 277 10^3/uL (150-450); RED BLOOD COUNT 3.84 10^6/uL (3.72-5.28); RED CELL DISTRIBUTION WIDTH 17.6 % (11.5-14.0); WHITE BLOOD COUNT 14.9 10^3/uL (4.0-10.5)
[2020-06-02 06:57] LABS: ANION GAP 10 (5-19); BLOOD UREA NITROGEN 52 mg/dL (7-20); CALCIUM 9.4 mg/dL (8.4-10.2); CARBON DIOXIDE 19 mmol/L (22-30); CHLORIDE 106 mmol/L (98-107); GLUCOSE 186 mg/dL (75-110); POTASSIUM 4.6 mmol/L (3.6-5.0)
[2020-06-02] MEDS: BUDESONIDE NEB 0.5 MG/2 ML AMPUL NEB SCH (08:06)
[2020-06-02] MEDS ORDERED: NORMAL SALINE 1000 ML 1,000 ML IV ONE (08:27)
[2020-06-02 10:25] LABS: VENOUS BLOOD BASE EXCESS -7.2 mmol/L; VENOUS BLOOD HCO3 19.2 mmol/L (20-32); VENOUS BLOOD PCO2 41.7 mmHg (35-63); VENOUS BLOOD PH 7.28 (7.30-7.42)
--- NOTE | 2020-06-02 10:34 | RADIOLOGY REPORT (SQ) ---
EXAM DESCRIPTION: KUB/ABDOMEN (SINGLE VIEW) IMAGES COMPLETED DATE/TIME: 06/02/2020 10:20 am REASON FOR STUDY: Distended Abdomen COMPARISON: None. NUMBER OF VIEWS: One view. TECHNIQUE: Supine radiographic image of the abdomen acquired. LIMITATIONS: None. FINDINGS: BOWEL GAS PATTERN: Mildly distended stomach. No significant large or small-bowel distenti on. CALCIFICATIONS: Probable calcified fibroid. SOFT TISSUES: No gross mass or suggestion of organomegaly. HARDWARE: None in the abdomen. BONES: No acute fracture. No worrisome bone lesions. OTHER: No other significant finding. IMPRESSION: Mild gastric distention. No other significant findings. TECHNICAL DOCUMENTATION: JOB ID: [id number] 2010 [employer]- All Rights Reserved Reading location - IP/workstation name: [email or web address]
[2020-06-02] MEDS: POLYETHYLENE GLYCOL 3350 POWDER 17 GM/1 PACKET PO SCH (10:41)
[2020-06-02] MEDS: GUAIFENESIN 600 MG TABLET.SA PO SCH ×2 (10:41→22:58)
[2020-06-02] MEDS: FAMOTIDINE 20 MG TABLET PO SCH ×2 (10:41→22:58)
[2020-06-02] MEDS: DOXYCYCLINE HYCLATE 100 MG TABLET PO SCH (10:42)
[2020-06-02] MEDS: METHYLPREDNISOLONE INJ 40 MG/1 ML SDV IV SCH ×3 (10:48→22:58)
[2020-06-02 11:26] LABS: APPEARANCE,URINE CLEAR; BILIRUBIN,URINE SMALL (NEGATIVE); COLOR,URINE YELLOW; GLUCOSE, URINE NEGATIVE (NEGATIVE); KETONES,URINE NEGATIVE (NEGATIVE); LEUKOCYTE ESTERASE,URINE NEGATIVE (NEGATIVE); NITRITE,URINE NEGATIVE (NEGATIVE); PROTEIN,URINE NEGATIVE (NEGATIVE); UROBILINOGEN,URINE NEGATIVE mg/dL (<2.0)
[2020-06-02] MEDS ORDERED: NORMAL SALINE 1000 ML 1,000 ML IV PRN (12:39)
--- NOTE | 2020-06-02 12:45 | PDOC CONSULTATION ---
Consultation Consult Date: 06/02/20 Provider Consulted: CITLALLI STALLWORTH Consult reason:: Hematology/Oncology consultation was requested for patient with new lung mass, mediastinal lymphadenopathy, and respiratory distress. Concerning for cancer. History of Present Illness Admission Date/PCP: 05/31/20 19:49 DURAN QUICK MD History of Present Illness: TY JJ is a 84 year old female who presented with respiratory distress. She failed outpatient antibiotics, has been given steroids, and COVID testing was negative. She was found on CT chest to have a mass in the IGNACIO as well as marked mediastinal lymphadenopathy possibly causing narrowing of the airway. Currently, patient is on BiPAP machine and was given Ativan and is sleeping very soundly. She does not arouse to my voice, or tactile stimulus, but nurses report she has been doing better since the ativan. Past Medical History Cardiac Medical History: Reports: Coronary Artery Disease, Myocardial Infarction - 4 YRS, Hypertension - ATACARD,METOPROLOL, PLENDIL Pulmonary Medical History: Denies: Asthma, Bronchitis, Chronic Obstructive Pulmonary Disease (COPD), Pneumonia Neurological Medical History: Denies: Seizures GI Medical History: Denies: Hepatitis, Hiatal Hernia Musculoskeltal Medical History: Reports: Arthritis Psychiatric Medical History: Reports: Tobacco Dependency Denies: Depression Hematology: Reports: Anemia Denies: Sickle Cell Disease Past Surgical History Past Surgical History: Reports: Appendectomy, Coronary Artery Bypass Graft Denies: Amputation, Hysterectomy, Mastectomy, Pacemaker Social History Lives with: Spouse/Significant other Smoking Status: Former Smoker Electronic Cigarette use?: No Frequency of Alcohol Use: None Hx Recreational Drug Use: No Hx Prescription Drug Abuse: No - Advance Directive Resuscitation Status: Full Code Family History Family History: CAD, Other - Kidney disease Family History: I was not able to obtain any history from the patient. Parental Family History Reviewed: No Children Family History Reviewed: No Sibling(s) Family History Reviewed.: No Medication/Allergy Home Medications: Polyethylene Glycol 3350 [Miralax Powder 17 gm/Packet] 1 packet PO DAILY 08/11/16 Rivaroxaban [Xarelto 15 mg Tablet] 1 tab PO DAILY 08/11/16 Rosuvastatin Calcium [Crestor 20 mg Tablet] 1 tab PO DAILY 08/11/16 Methylprednisolone [Medrol Dosepack (4 mg/Tab) 21 Tab/Dosepak] 4 mg PO ASDIR PRN #21 tab.ds.pk 05/13/20 Albuterol Sulfate [Proair Hfa Inhalation Aerosol 8.5 gm Mdi] 2 puff IH TIDP PRN 05/31/20 Allopurinol [Zyloprim 100 mg Tablet] 100 mg PO BID 05/31/20 Candesartan/Hydrochlorothiazid [Candesartan-Hctz 16-12.5 mg Tb] 1 tab PO BID 05/31/20 Felodipine [Felodipine ER] 5 mg PO DAILY 05/31/20 Levothyroxine Sodium [Levothyroxine] 88 mcg PO DAILY 05/31/20 Metoprolol Tartrate [Lopressor 50 mg Tablet] 50 mg PO Q12 05/31/20 Allergies/Adverse Reactions: Sulfa (Sulfonamide Antibiotics) Allergy (Verified 05/13/20 14:41) IVP DYE Allergy (Uncoded 01/25/11 12:23) Review of Systems ROS unobtainable: Due to mental status Physical Exam Vital Signs: Temp Pulse Resp BP Pulse Ox 97.4 F 97 22 H 80/53 L 100 06/02/20 08:12 06/02/20 09:00 06/02/20 08:06 06/02/20 09:00 06/02/20 08:12 Intake & Output 06/01/20 06/02/20 06/03/20 06:59 06:59 06:59 Intake Total 350 787 109 Balance 350 787 109 Weight 65.4 kg 69.6 kg General appearance: PRESENT: no acute distress, thin Head exam: PRESENT: normocephalic Mouth exam: PRESENT: dry mucosa Neck exam: ABSENT: lymphadenopathy Respiratory exam: PRESENT: other - Due to the noise from BiPAP, breath sounds were obscured. Cardiovascular exam: PRESENT: other - Due to the noise from BiPAP, heart sounds were obscured. GI/Abdominal exam: PRESENT: distended, soft, other - Possible ascites. Extremities exam: ABSENT: pedal edema Neurological exam: PRESENT: altered Skin exam: PRESENT: other - Pale, cyanotic with sunken features. Results Laboratory Results: 06/02/20 06:06 06/02/20 06:06 06/01/20 06/01/20 06/01/20 05:22 12:15 16:03 WBC RBC Hgb Hct MCV MCH MCHC RDW Plt Count Seg Neutrophils % VBG pH VBG pCO2 VBG HCO3 VBG Base Excess Sodium Potassium Chloride Carbon Dioxide Anion Gap BUN Creatinine Est GFR ( Amer) Glucose Calcium TSH 0.85 Free T4 2.02 Free T3 pg/mL 2.04 L Urine Color YELLOW Urine Appearance CLEAR Urine pH 5.0 Ur Specific [place] 1.018 Urine Protein NEGATIVE Urine Glucose (UA) NEGATIVE Urine Ketones NEGATIVE Urine Blood NEGATIVE Urine Nitrite NEGATIVE Ur Leukocyte Esterase TRACE H Urine WBC (Auto) 1 Urine RBC (Auto) 10 06/01/20 06/02/20 06/02/20 16:03 06:06 06:06 WBC 9.1 14.9 H RBC 3.49 L 3.84 Hgb 10.5 L 11.1 L Hct 31.1 L 33.8 L MCV 89 88 MCH 30.2 29.0 MCHC 33.8 32.9 RDW 17.6 H 17.6 H Plt Count 257 277 Seg Neutrophils % 90.8 H VBG pH VBG pCO2 VBG HCO3 VBG Base Excess Sodium 134.9 L Potassium 4.6 Chloride 106 Carbon Dioxide 19 L Anion Gap 10 BUN 52 H Creatinine 2.81 H Est GFR ( Amer) 19 L Glucose 186 H Calcium 9.4 TSH Free T4 Free T3 pg/mL Urine Color Urine Appearance Urine pH Ur Specific [place] Urine Protein Urine Glucose (UA) Urine Ketones Urine Blood Urine Nitrite Ur Leukocyte Esterase Urine WBC (Auto) Urine RBC (Auto) 06/02/20 06/02/20 10:08 10:51 WBC RBC Hgb Hct MCV MCH MCHC RDW Plt Count Seg Neutrophils % VBG pH 7.28 L VBG pCO2 41.7 VBG HCO3 19.2 L VBG Base Excess -7.2 Sodium Potassium Chloride Carbon Dioxide Anion Gap BUN Creatinine Est GFR ( Amer) Glucose Calcium TSH Free T4 Free T3 pg/mL Urine Color YELLOW Urine Appearance CLEAR Urine pH 5.0 Ur Specific [place] 1.020 Urine Protein NEGATIVE Urine Glucose (UA) NEGATIVE Urine Ketones NEGATIVE Urine Blood NEGATIVE Urine Nitrite NEGATIVE Ur Leukocyte Esterase NEGATIVE Urine WBC (Auto) 1 Urine RBC (Auto) 1 05/31/20 05/31/20 05/31/20 15:50 15:50 21:34 Troponin I 0.037 0.038 NT-Pro-B Natriuret Pep 7000 H 06/01/20 05:22 Troponin I 0.030 NT-Pro-B Natriuret Pep Impressions: Chest X-Ray 05/31/20 14:34 IMPRESSION: Right hilar fullness again noted. Recommend CT for more complete characterization. Minimal right basilar opacities, possibly atelectasis or infection. Chest CT 05/31/20 15:37 IMPRESSION: Marked mediastinal and right hilar adenopathy highly concerning for neoplasm such as lymphoma. Small right pleural effusion with mild associated atelectasis. Scoliosis. KUB X-Ray 06/02/20 00:00 IMPRESSION: Mild gastric distention. No other significant findings. Status: Image reviewed by me Assessment & Plan - Diagnosis (1) Mediastinal mass Is this a current diagnosis for this admission?: Yes Plan: Lung mass with lymphadenopathy. I am not sure if patient is even stable enough to undergo biopsy. I have left a message with her family to discuss goals of care. However, Dr. Parrish indicated that she expressed her desire to undergo biopsy of the mass. I spoke with Radiologists and they believe bronchoscopy will be safe than CT guided needle biopsy of the IGNACIO. I have consulted Dr. Valle, but he is on vacation until next week and we have no one else able to perform bronchoscope. She may need to be transferred for this procedure. I also spoke with Dr. Valdes. He also believes patient should undergo a biopsy. - Plan Summary Plan Summary: I will be happy to give further recommendations after pathologic diagnosis is made. May consider CT A/P as well. However, her renal function is a bit worse, so would try to hold off until possible to give IV contrast. Please call with any questions or concerns.
--- NOTE | 2020-06-02 12:46 | PDOC CONSULTATION ---
Consultation Consult Date: 06/02/20 Provider Consulted: Eduardo TORRES Consult reason:: MELISSA in CKD 4 History of Present Illness Admission Date/PCP: 05/31/20 19:49 DURAN QUICK MD History of Present Illness: TY JJ is a 84 year old female with a history of chronic hypertension, hyperlipidemia, paroxysmal atrial fibrillation, apparent COPD, CKD stage IV with a base creatinine of 2 was admitted with a history of persistent cough for few weeks along with some worsening shortness of breath. Evaluations in the ER revealed that the patient was afebrile and her Covid serologies and other respiratory viruses testing came out negative. He was in decompensated A. fib which had to be rectified with intravenous diltiazem. She had a CT scan of her chest that shows possible right lower lobe pneumonia along with right hilar and mediastinal lymphadenopathy suggestive of possible neoplasm/lymphoma. Patient currently is on BiPAP and as she is very poorly responsive. Therefore discussions were done with the treating nurse and chart review was done. Apparently she got very agitated early this morning and she refused to wear her BiPAP which led to worsening respiratory failure and therefore she had to be sedated with IV Ativan. Patient currently is actively breathing and does not look to be any distress. She responds to painful stimuli. Labs and medications were reviewed. She is also on antibiotics along with steroids. Her abdomen has been distended apparently is as per discussions done with the nurse and a KUB was done which showed some gastric distention but otherwise no signs of any intestinal obstruction. No Dee catheter so far introduced. She has had a renal ultrasound done a few months earlier which I reviewed which did not show any features to indicate obstruction. Past Medical History Cardiac Medical History: Reports: Coronary Artery Disease, Hypertension-primary, Myocardial Infarction - 4 YRS Pulmonary Medical History: Denies: Asthma, Bronchitis, Chronic Obstructive Pulmonary Disease (COPD), Pneumonia Neurological Medical History: Denies: Seizures Renal/ Medical History: Reports: Chronic Kidney Disease Stage IV GI Medical History: Denies: Hepatitis, Hiatal Hernia Musculoskeltal Medical History: Reports: Arthritis Psychiatric Medical History: Reports: Tobacco Dependency Denies: Depression Past Surgical History Past Surgical History: Reports: Appendectomy, Coronary Artery Bypass Graft Denies: Hysterectomy, Mastectomy, Pacemaker Social History Lives with: Spouse/Significant other Smoking Status: Former Smoker Electronic Cigarette use?: No Frequency of Alcohol Use: None Hx Recreational Drug Use: No Hx Prescription Drug Abuse: No - Advance Directive Resuscitation Status: Full Code Family History Parental Family History Reviewed: No - Patient is sedated and on BiPAP. Children Family History Reviewed: No Sibling(s) Family History Reviewed.: No Medication/Allergy Home Medications: Polyethylene Glycol 3350 [Miralax Powder 17 gm/Packet] 1 packet PO DAILY 08/11 Rivaroxaban [Xarelto 15 mg Tablet] 1 tab PO DAILY 08/11/16 Rosuvastatin Calcium [Crestor 20 mg Tablet] 1 tab PO DAILY 08/11/16 Methylprednisolone [Medrol Dosepack (4 mg/Tab) 21 Tab/Dosepak] 4 mg PO ASDIR PRN #21 tab.ds.pk 05/13/20 Albuterol Sulfate [Proair Hfa Inhalation Aerosol 8.5 gm Mdi] 2 puff IH TIDP PRN 05/31/20 Allopurinol [Zyloprim 100 mg Tablet] 100 mg PO BID 05/31/20 Candesartan/Hydrochlorothiazid [Candesartan-Hctz 16-12.5 mg Tb] 1 tab PO BID 05/31/20 Felodipine [Felodipine ER] 5 mg PO DAILY 05/31/20 Levothyroxine Sodium [Levothyroxine] 88 mcg PO DAILY 05/31/20 Metoprolol Tartrate [Lopressor 50 mg Tablet] 50 mg PO Q12 05/31/20 Allergies/Adverse Reactions: Sulfa (Sulfonamide Antibiotics) Allergy (Verified 05/13/20 14:41) IVP DYE Allergy (Uncoded 01/25/11 12:23) Review of Systems ROS unobtainable: Due to mental status Review of Systems: Patient currently is sedated and on BiPAP and poorly responsive. Physical Exam Vital Signs: Temp Pulse Resp BP Pulse Ox 97.4 F 97 22 H 80/53 L 100 06/02/20 08:12 06/02/20 09:00 06/02/20 08:06 06/02/20 09:00 06/02/20 08:12 Intake & Output 06/01/20 06/02/20 06/03/20 06:59 06:59 06:59 Intake Total 350 787 109 Balance 350 787 109 Weight 65.4 kg 69.6 kg General appearance: PRESENT: disheveled Eye exam: PRESENT: EOMI, PERRLA. ABSENT: scleral icterus Ear exam: PRESENT: normal external ear exam Mouth exam: PRESENT: neck supple Neck exam: ABSENT: meningismus, tenderness, thyromegaly, tracheal deviation Respiratory exam: PRESENT: clear to auscultation carmen, decreased breath sounds. ABSENT: crackles Cardiovascular exam: PRESENT: +S1, +S2 GI/Abdominal exam: PRESENT: distended, soft, tenderness. ABSENT: organomegaly Extremities exam: ABSENT: pedal edema Neurological exam: PRESENT: altered Skin exam: ABSENT: erythema, mottled, rash Results Laboratory Results: 06/02/20 06:06 06/02/20 06:06 06/01/20 06/01/20 06/01/20 05:22 12:15 16:03 WBC RBC Hgb Hct MCV MCH MCHC RDW Plt Count Seg Neutrophils % VBG pH VBG pCO2 VBG HCO3 VBG Base Excess Sodium Potassium Chloride Carbon Dioxide Anion Gap BUN Creatinine Est GFR ( Amer) Glucose Calcium TSH 0.85 Free T4 2.02 Free T3 pg/mL 2.04 L Urine Color YELLOW Urine Appearance CLEAR Urine pH 5.0 Ur Specific [place] 1.018 Urine Protein NEGATIVE Urine Glucose (UA) NEGATIVE Urine Ketones NEGATIVE Urine Blood NEGATIVE Urine Nitrite NEGATIVE Ur Leukocyte Esterase TRACE H Urine WBC (Auto) 1 Urine RBC (Auto) 10 06/01/20 06/02/20 06/02/20 16:03 06:06 06:06 WBC 9.1 14.9 H RBC 3.49 L 3.84 Hgb 10.5 L 11.1 L Hct 31.1 L 33.8 L MCV 89 88 MCH 30.2 29.0 MCHC 33.8 32.9 RDW 17.6 H 17.6 H Plt Count 257 277 Seg Neutrophils % 90.8 H VBG pH VBG pCO2 VBG HCO3 VBG Base Excess Sodium 134.9 L Potassium 4.6 Chloride 106 Carbon Dioxide 19 L Anion Gap 10 BUN 52 H Creatinine 2.81 H Est GFR ( Amer) 19 L Glucose 186 H Calcium 9.4 TSH Free T4 Free T3 pg/mL Urine Color Urine Appearance Urine pH Ur Specific [place] Urine Protein Urine Glucose (UA) Urine Ketones Urine Blood Urine Nitrite Ur Leukocyte Esterase Urine WBC (Auto) Urine RBC (Auto) 06/02/20 06/02/20 10:08 10:51 WBC RBC Hgb Hct MCV MCH MCHC RDW Plt Count Seg Neutrophils % VBG pH 7.28 L VBG pCO2 41.7 VBG HCO3 19.2 L VBG Base Excess -7.2 Sodium Potassium Chloride Carbon Dioxide Anion Gap BUN Creatinine Est GFR ( Amer) Glucose Calcium TSH Free T4 Free T3 pg/mL Urine Color YELLOW Urine Appearance CLEAR Urine pH 5.0 Ur Specific [place] 1.020 Urine Protein NEGATIVE Urine Glucose (UA) NEGATIVE Urine Ketones NEGATIVE Urine Blood NEGATIVE Urine Nitrite NEGATIVE Ur Leukocyte Esterase NEGATIVE Urine WBC (Auto) 1 Urine RBC (Auto) 1 05/31/20 05/31/20 05/31/20 15:50 15:50 21:34 Troponin I 0.037 0.038 NT-Pro-B Natriuret Pep 7000 H 06/01/20 05:22 Troponin I 0.030 NT-Pro-B Natriuret Pep Impressions: Chest X-Ray 05/31/20 14:34 IMPRESSION: Right hilar fullness again noted. Recommend CT for more complete characterization. Minimal right basilar opacities, possibly atelectasis or infection. Chest CT 05/31/20 15:37 IMPRESSION: Marked mediastinal and right hilar adenopathy highly concerning for neoplasm such as lymphoma. Small right pleural effusion with mild associated atelectasis. Scoliosis. KUB X-Ray 06/02/20 00:00 IMPRESSION: Mild gastric distention. No other significant findings. Assessment & Plan - Diagnosis (1) MELISSA (acute kidney injury) Plan: Background of history of probably hypertensive CKD stage IV with base creatinine of 2. Now with worsening renal functions in the current setting of possible pneumonia with other prerenal issues. Monitor for signs of worsening sepsis. Hold antihypertensives. Start gentle fluid hydration. Early ultrasound did not show any obstructive uropathy and will withhold any ultrasound for the moment. However abdominal distention which is soft and needs to be ruled out for urinary bladder obstruction. Discussed with nurse to introduce Dee catheter and leave it. No indications for renal replacements which would be a difficult choice for this patient anyway. (2) Kidney disease, chronic, stage IV (GFR 15-29 ml/min) Is this a current diagnosis for this admission?: Yes Plan: Underlying CKD stage IV with creatinine of 2 in the background of hypertension. (3) COPD exacerbation Is this a current diagnosis for this admission?: Yes Plan: Now on BiPAP. (4) Mediastinal mass Is this a current diagnosis for this admission?: Yes Plan: In the background of right pneumonia. Differential includes cancer/lymphoma. (5) Paroxysmal atrial fibrillation with rapid ventricular response Is this a current diagnosis for this admission?: Yes Plan: Decompensated rapid A. fib/ventricular response in the current setting. Currently being managed with diltiazem. I note cardiology is on board. (6) Right lower lobe pulmonary infiltrate Is this a current diagnosis for this admission?: Yes Plan: As per hospitalist.
[2020-06-02] MEDS: DILTIAZEM HCL/D5W 125 MG/125 ML RTUINJ IV PRN (17:54)
[2020-06-02] MEDS: HEPARIN SODIUM,PORCINE/D5W 25,000 UNIT/250 ML RTUINJ IV PRN (17:55)
--- NOTE | 2020-06-02 19:44 | PDOC PROGRESS REPORT ---
Subjective Date:: 06/02/20 Subjective:: Patient continues to require BiPAP. When taken off the BiPAP she becomes very distressed in terms of her work of breathing. She also gets tachycardic when taken off the BiPAP. Also having significant dysphagia. Reason For Visit: GERD,SWALLOWING DYSFUNCTION,RIGHT LOWER LOBE Physical Exam Vital Signs: Temp Pulse Resp BP Pulse Ox 97.3 F 114 H 28 H 112/72 89 L 06/02/20 15:46 06/02/20 18:00 06/02/20 16:10 06/02/20 18:00 06/02/20 17:56 Intake & Output 06/01/20 06/02/20 06/03/20 06:59 06:59 06:59 Intake Total 441 610 8817 Output Total 150 Balance 988 588 4335 Weight 65.4 kg 69.6 kg General appearance: PRESENT: cooperative, other - moderate distress Neck exam: ABSENT: JVD Respiratory exam: PRESENT: accessory muscle use, stridor, symmetrical, unlabored, wheezes - inspiratory & expiratory wheezing in all lung lea.. ABSENT: tachypnea Cardiovascular exam: PRESENT: irregular rhythm, +S1, +S2, tachycardia GI/Abdominal exam: PRESENT: distended, soft. ABSENT: rebound, rigid, tenderness Neurological exam: PRESENT: alert, awake, oriented to person, oriented to place, oriented to time, oriented to situation Psychiatric exam: ABSENT: agitated, anxious Results Laboratory Results: 06/02/20 06:06 06/02/20 06:06 06/02/20 06/02/20 06/02/20 06:06 06:06 10:08 WBC 14.9 H RBC 3.84 Hgb 11.1 L Hct 33.8 L MCV 88 MCH 29.0 MCHC 32.9 RDW 17.6 H Plt Count 277 VBG pH 7.28 L VBG pCO2 41.7 VBG HCO3 19.2 L VBG Base Excess -7.2 Sodium 134.9 L Potassium 4.6 Chloride 106 Carbon Dioxide 19 L Anion Gap 10 BUN 52 H Creatinine 2.81 H Est GFR ( Amer) 19 L Glucose 186 H Calcium 9.4 Urine Color Urine Appearance Urine pH Ur Specific [place] Urine Protein Urine Glucose (UA) Urine Ketones Urine Blood Urine Nitrite Ur Leukocyte Esterase Urine WBC (Auto) Urine RBC (Auto) 06/02/20 10:51 WBC RBC Hgb Hct MCV MCH MCHC RDW Plt Count VBG pH VBG pCO2 VBG HCO3 VBG Base Excess Sodium Potassium Chloride Carbon Dioxide Anion Gap BUN Creatinine Est GFR ( Amer) Glucose Calcium Urine Color YELLOW Urine Appearance CLEAR Urine pH 5.0 Ur Specific [place] 1.020 Urine Protein NEGATIVE Urine Glucose (UA) NEGATIVE Urine Ketones NEGATIVE Urine Blood NEGATIVE Urine Nitrite NEGATIVE Ur Leukocyte Esterase NEGATIVE Urine WBC (Auto) 1 Urine RBC (Auto) 1 05/31/20 05/31/20 05/31/20 15:50 15:50 21:34 Troponin I 0.037 0.038 NT-Pro-B Natriuret Pep 7000 H 06/01/20 05:22 Troponin I 0.030 NT-Pro-B Natriuret Pep Impressions: Chest X-Ray 05/31/20 14:34 IMPRESSION: Right hilar fullness again noted. Recommend CT for more complete characterization. Minimal right basilar opacities, possibly atelectasis or infection. Chest CT 05/31/20 15:37 IMPRESSION: Marked mediastinal and right hilar adenopathy highly concerning for neoplasm such as lymphoma. Small right pleural effusion with mild associated atelectasis. Scoliosis. KUB X-Ray 06/02/20 00:00 IMPRESSION: Mild gastric distention. No other significant findings. Assessment and Plan - Diagnosis (1) Mediastinal mass Is this a current diagnosis for this admission?: Yes Plan: Patient has large mediastinal and right hilar masses. There is concern for lymphoma. Oncology recommending biopsy. Discussed with IR who recommends bronchoscopic approach. We do not have link trainer on-call for the next several days. I have tried calling [facility], [facility], [facility] which are all full and not accepting transfers. [place] and [facility] Intensivists Dr. Day & Dr. Mortensen have declined transfer stating that a bronch cannot be done because she is in r espiratory distress and requiring Bipap. (2) COPD exacerbation Is this a current diagnosis for this admission?: Yes Plan: Has significant wheezing bilaterally despite [id number] treatment with nebulizers, steroids and doxycycline. Has very significant WOB on Nasal cannula and as such still requiring BiPAP. No CO2 retention on VBG today. ICU consulted (3) Stridor Is this a current diagnosis for this admission?: Yes Plan: ? stridor. Insp & exp wheeze pronounced over trachea. Possibly could have tracheitis but no obstruction noted on CT of the chest. Currently on doxycycline. Continue steroids and bronchodilators. Improves when on bipap. ENT evaluation in a.m. (4) Dysphagia Qualifiers: Dysphagia type: esophageal phase Qualified Code(s): R13.10 - Dysphagia, unspecified Is this a current diagnosis for this admission?: Yes Plan: Likely esophageal dysphagia. We will need to get an esophagram when patient is more stable respiratory johnson. We will keep on liquid diet for now. (5) Paroxysmal atrial fibrillation with rapid ventricular response Is this a current diagnosis for this admission?: Yes Plan: Gets more tachycardic when she takes the mask off. Still on diltiazem drip. Continue p.o. diltiazem as well. Continue heparin drip. Xarelto remains on hold in anticipation of possibly needing biopsy once respiratory status improves. Dr. Valdes following (6) Hypertension Qualifiers: Hypertension type: essential hypertension Qualified Code(s): I10 - Essential (primary) hypertension Is this a current diagnosis for this admission?: Yes Plan: Antihypertensives on hold due to soft blood pressures. (7) Hypothyroidism Qualifiers: Hypothyroidism type: unspecified Qualified Code(s): E03.9 - Hypothyroidism, unspecified Is this a current diagnosis for this admission?: Yes Plan: TSH is adequate (8) Kidney disease, chronic, stage IV (GFR 15-29 ml/min) Is this a current diagnosis for this admission?: Yes Plan: Nephrology consulted. Trial of fluids. Monitor output and function. - Time Time Spent with patient: 35 or more minutes Anticipated Discharge Disposition: Home with Home Health Anticipated Discharge Timeframe: unknwon
--- NOTE | 2020-06-02 19:56 | Progress Note ---
Provider Note Provider Note: CARDIOLOGY PROGRESS NOTE by Dr. Keiko Moya on . SUBJECTIVE: The patient earlier this morning was agitated and was refusing to wear the BiPAP. Her saturations would drop and a heart rate would picking machine operator helper into the 150s 160s with the patient being in atrial fibrillation with rapid ventricle response. The patient got Ativan and at present is very well sedated and very drowsy and difficult to arouse. Her heart rate is better. I have increased the patient's Cardizem drip to 5 mg/h. The local metallurgical engineer is out of town. The patient cannot be transferred to either [facility] or [facility] since they are not accepting nonemergency patients. PHYSICAL EXAMINATION: The patient is well-built. But appears to be chronically ill. Selected Entries 06/02/20 06/02/20 06/02/20 12:00 12:20 13:00 Temperature 97.4 F Pulse Rate 107 H Blood Pressure 120/68 O2 Sat by Pulse 92 Oximetry Fraction of Inspired Oxygen (FIO2) O2 Sat by Pulse 98 Oximetry by Telemetry 06/02/20 16:10 Temperature Pulse Rate Blood Pressure O2 Sat by Pulse Oximetry Fraction of 40 Inspired Oxygen (FIO2) O2 Sat by Pulse Oximetry by Telemetry HEAD: Is atraumatic normocephalic. Ears nose and throat are negative. SKIN: There is no skin rashes. There is no skin lesions. There is no skin rashes. NECK: Is supple. There is no JVD. There is no accessory muscles of respiration use.. There is no lymphadenopathy. There is no goiter. Trachea central. LUNGS: There is by inspiratory stridor present. There is bilateral inspiratory and expiratory wheezing. There is scattered rhonchi. No rales of CHF. HEART: S1-S2 is heard. There is no S3 gallop. There is no S4 gallop. There is no rub. S1 is of variable intensity. There is systolic murmur left sternal border and the apex. ABDOMEN: Soft. Nontender. There is no paraspinal megaly. Bowel sounds are well heard. EXTREMITIES: Femorals are well felt. There is no femoral bruits. Leg pulses well felt. There is no pedal edema. There is no DVT or cellulitis. There is no calf tenderness. There is no cyanosis or clubbing. SERVICENOW ADMINISTRATOR DEVELOPER: The patient is asleep due to sedation. She has no focal deficits. PSYCHIATRIC: Patient is well sedated, with Ativan. Labs- All tests 24 hr 06/02/20 06/02/20 06/02/20 06:06 06:06 06:06 WBC 14.9 H RBC 3.84 Hgb 11.1 L Hct 33.8 L MCV 88 MCH 29.0 MCHC 32.9 RDW 17.6 H Plt Count 277 APTT 105.5 H D VBG pH VBG pCO2 VBG HCO3 VBG Base Excess Sodium 134.9 L Potassium 4.6 Chloride 106 Carbon Dioxide 19 L Anion Gap 10 BUN 52 H Creatinine 2.81 H Est GFR ( Amer) 19 L Est GFR (MDRD) Non-Af 16 L Glucose 186 H Calcium 9.4 Urine Color Urine Appearance Urine pH Ur Specific [place] Urine Protein Urine Glucose (UA) Urine Ketones Urine Blood Urine Nitrite Urine Bilirubin Urine Urobilinogen Ur Leukocyte Esterase Urine WBC (Auto) Urine RBC (Auto) U Hyaline Cast (Auto) Urine Mucus (Auto) Urine Ascorbic Acid 06/02/20 06/02/20 06/02/20 10:08 10:51 13:36 WBC RBC Hgb Hct MCV MCH MCHC RDW Plt Count APTT 124.4 H VBG pH 7.28 L VBG pCO2 41.7 VBG HCO3 19.2 L VBG Base Excess -7.2 Sodium Potassium Chloride Carbon Dioxide Anion Gap BUN Creatinine Est GFR ( Amer) Est GFR (MDRD) Non-Af Glucose Calcium Urine Color YELLOW Urine Appearance CLEAR Urine pH 5.0 Ur Specific [place] 1.020 Urine Protein NEGATIVE Urine Glucose (UA) NEGATIVE Urine Ketones NEGATIVE Urine Blood NEGATIVE Urine Nitrite NEGATIVE Urine Bilirubin SMALL H Urine Urobilinogen NEGATIVE Ur Leukocyte Esterase NEGATIVE Urine WBC (Auto) 1 Urine RBC (Auto) 1 U Hyaline Cast (Auto) 8 Urine Mucus (Auto) RARE Urine Ascorbic Acid NEGATIVE Chest X-Ray 05/31/20 14:34 IMPRESSION: Right hilar fullness again noted. Recommend CT for more complete characterization. Minimal right basilar opacities, possibly atelectasis or infection. Chest CT 05/31/20 15:37 IMPRESSION: Marked mediastinal and right hilar adenopathy highly concerning for neoplasm such as lymphoma. Small right pleural effusion with mild associated atelectasis. Scoliosis. KUB X-Ray 06/02/20 00:00 IMPRESSION: Mild gastric distention. No other significant findings. IMPRESSION/RECOMMENDATION: 1. Altered mental status and delirium most likely secondary to infection and hypoxemia 2. Atrial fibrillation with rapid ventricle response: Current continue IV Cardizem. Agree with starting the patient on p.o. Cardizem and increasing the p.o. Cardizem while decreasing the IV Cardizem infusion. Note that the patient's Xarelto has been held and the patient has been placed on heparin, in anticipation of for possible biopsy of lymph node. 3. Mediastinal and hilar lymphadenopathy of significance: The findings needs to be ruled out. Hematology consult requested. 4. COPD with acute exacerbation: Continue steroids and bronchodilators and antibiotics 5. Dysphonia and stridor: Whether this is secondary to tracheo- bronchitis acute, versus secondary to lymphadenopathy causing compression of the right lower lobe bronchus. This can also explain compressive atelectasis of the right lower lobe. But also the patient's symptoms of instability and expiratory wheezing and stridor can be explained by acute tracheobronchitis. Continue continue acute treatment of tracheobronchitis with the bronchodilators, steroids and antibiotics. 6. Right lower lobe infiltrate with a small pleural effusion:: Possible pneumonia. Patient is on antibiotics. 7. Hypertension: Patient blood pressure is well controlled continue current medication. 8. Hypothyroidism: Continue current replacement as thyroid functions tests suggest the patient be euthyroid on current replacement. This is definitely not the cause of the patient's atrial fibrillation with rapid ventricular response. 9. Chronic kidney disease stage IV: Recommend nephrology consult. 10. Coronary artery disease: History of old myocardial infarction and history of coronary bypass graft surgery: No evidence of no evidence of acute coronary syndrome or non-ST elevation VT. No anginal symptoms. Continue current treatment. Medications reviewed. Medical regiment and management plan discussed with attending provider on the case. Discussed with patient patient's . Medical decision making is of high complexity. 40 minutes spent as patient more than 50% time spent in direct patient care. Will follow.
[2020-06-02] MEDS ORDERED: METHYLPREDNISOLONE INJ 125 MG/2 ML SDV IV ONE (21:30)
[2020-06-02] MEDS ORDERED: DOXYCYCLINE HYCLATE INJ 100 MG VIAL IV SCH (22:00)
[2020-06-02] MEDS ORDERED: DOXYCYCLINE HYCLATE 100 MG in DEXTROSE 5%-WATER 250 ML IV SCH (22:00)
[2020-06-02] MEDS: ATORVASTATIN CALCIUM 80 MG TABLET PO SCH (22:58)
[2020-06-02] MEDS: ASPIRIN 81 MG TABLET, ENT COATED PO SCH (22:58)
[2020-06-02] MEDS: MELATONIN 5 MG TABLET PO PRN (22:59)
[2020-06-02] MEDS ORDERED: DOXYCYCLINE HYCLATE INJ 100 MG VIAL ONE (23:17)
[2020-06-02] MEDS ORDERED: METHYLPREDNISOLONE INJ 40 MG/1 ML SDV IV ONE (23:30)
[2020-06-03] MEDS: LEVALBUTEROL HCL NEB 1.25 MG/3 ML AMPUL NEB SCH ×6 (00:01→20:01)
[2020-06-03] MEDS: IPRATROPIUM BROMIDE 0.02% NEB 0.5 MG/2.5 ML AMPUL NEB SCH ×3 (00:01→16:00)
[2020-06-03] MEDS: DILTIAZEM HCL 60 MG TABLET PO SCH ×4 (01:05→19:01)
[2020-06-03] MEDS: DILTIAZEM HCL/D5W 125 MG/125 ML RTUINJ IV PRN ×2 (03:35→14:57)
[2020-06-03 05:49] LABS: ANION GAP 13 (5-19); BLOOD UREA NITROGEN 53 mg/dL (7-20); CALCIUM 9.3 mg/dL (8.4-10.2); CARBON DIOXIDE 18 mmol/L (22-30); CHLORIDE 104 mmol/L (98-107); CREATINE KINASE 42 U/L (30-135); GLUCOSE 211 mg/dL (75-110); PHOSPHORUS 4.4 mg/dL (2.5-4.5); POTASSIUM 4.1 mmol/L (3.6-5.0)
[2020-06-03] MEDS: METHYLPREDNISOLONE INJ 40 MG/1 ML SDV IV SCH ×3 (05:53→21:44)
[2020-06-03] MEDS: LEVOTHYROXINE SODIUM 0.1 MG TABLET PO SCH (05:54)
[2020-06-03] MEDS: BUDESONIDE NEB 0.5 MG/2 ML AMPUL NEB SCH (07:39)
[2020-06-03] MEDS: DOXYCYCLINE HYCLATE 100 MG in DEXTROSE 5%-WATER 250 ML IV SCH ×2 (10:37→21:43)
[2020-06-03] MEDS: GUAIFENESIN 600 MG TABLET.SA PO SCH ×2 (10:38→21:52)
[2020-06-03] MEDS: POLYETHYLENE GLYCOL 3350 POWDER 17 GM/1 PACKET PO SCH (10:38)
[2020-06-03] MEDS: FAMOTIDINE 20 MG TABLET PO SCH ×2 (10:38→21:52)
--- NOTE | 2020-06-03 11:10 | PDOC PROGRESS REPORT ---
Subjective Date:: 06/03/20 Reason For Visit: Saw patient today. She is a whole lot better than when I saw her yesterday when she was rather quite moribund on BiPAP. Today after seeing her and discussions done with the treating nurse she has been much awake and more responsive and communicative. However she decompensates pretty rapidly when she is taken off the BiPAP and so she has to be on limited time on nasal cannula at 5 L and soon after has to be put on BiPAP. She is an extremely complex patient with her mediastinal/hilar lymphadenopathy and the need for biopsy to disprove or prove whether she has got a malignant lesion. After talking with Dr. Parrish/hospitalist it looks like her chances of being taken over to a tertiary care hospital looks rather remote in the current Covid situations as hospital refusing patients. As far as renal renal point of view she is steady and I would continue on current guidelines including another liter of IV fluid. Physical Exam Vital Signs: Temp Pulse Resp BP Pulse Ox 97.7 F 117 H 28 H 119/82 100 06/03/20 07:59 06/03/20 07:59 06/03/20 07:59 06/03/20 07:59 06/03/20 07:59 Intake & Output 06/02/20 06/03/20 06/04/20 06:59 06:59 06:59 Intake Total 787 1530 36 Output Total 450 Balance 787 1080 36 Weight 69.6 kg 64.6 kg General appearance: PRESENT: mild distress Respiratory exam: PRESENT: clear to auscultation carmen, decreased breath sounds. ABSENT: crackles Cardiovascular exam: PRESENT: +S1, +S2 GI/Abdominal exam: PRESENT: distended, soft, tenderness. ABSENT: organomegaly Extremities exam: ABSENT: pedal edema Results Laboratory Results: 06/02/20 06:06 06/03/20 04:48 06/02/20 06/03/20 10:51 04:48 Sodium 134.5 L Potassium 4.1 Chloride 104 Carbon Dioxide 18 L Anion Gap 13 BUN 53 H Creatinine 2.70 H Est GFR ( Amer) 20 L Glucose 211 H Calcium 9.3 Phosphorus 4.4 Urine Color YELLOW Urine Appearance CLEAR Urine pH 5.0 Ur Specific [place] 1.020 Urine Protein NEGATIVE Urine Glucose (UA) NEGATIVE Urine Ketones NEGATIVE Urine Blood NEGATIVE Urine Nitrite NEGATIVE Ur Leukocyte Esterase NEGATIVE Urine WBC (Auto) 1 Urine RBC (Auto) 1 05/31/20 05/31/20 05/31/20 15:50 15:50 21:34 Creatine Kinase Troponin I 0.037 0.038 NT-Pro-B Natriuret Pep 7000 H 06/01/20 06/03/20 05:22 04:48 Creatine Kinase 42 Troponin I 0.030 NT-Pro-B Natriuret Pep Impressions: Chest X-Ray 05/31/20 14:34 IMPRESSION: Right hilar fullness again noted. Recommend CT for more complete characterization. Minimal right basilar opacities, possibly atelectasis or infection. Chest CT 05/31/20 15:37 IMPRESSION: Marked mediastinal and right hilar adenopathy highly concerning for neoplasm such as lymphoma. Small right pleural effusion with mild associated atelectasis. Scoliosis. KUB X-Ray 06/02/20 00:00 IMPRESSION: Mild gastric distention. No other significant findings. Assessment & Plan - Diagnosis (1) MELISSA (acute kidney injury) Plan: Nonoliguric. Continue 1 more liter of IV fluids . Renal numbers are stable and no indications for renal replacements. (2) Kidney disease, chronic, stage IV (GFR 15-29 ml/min) Is this a current diagnosis for this admission?: Yes Plan: Underlying CKD stage IV with creatinine of 2 in the background of hypertension. (3) COPD exacerbation Is this a current diagnosis for this admission?: Yes Plan: Now on BiPAP. (4) Mediastinal mass Is this a current diagnosis for this admission?: Yes Plan: In the background of right pneumonia. Differential includes cancer/lymphoma. (5) Paroxysmal atrial fibrillation with rapid ventricular response Is this a current diagnosis for this admission?: Yes Plan: Decompensated rapid A. fib/ventricular response in the current setting. Currently being managed with diltiazem. I note cardiology is on board. (6) Right lower lobe pulmonary infiltrate Is this a current diagnosis for this admission?: Yes Plan: As per hospitalist.
[2020-06-03] MEDS ORDERED: DIGOXIN INJ 0.5 MG/2 ML AMPULE IV ONE (13:00)
[2020-06-03] MEDS ORDERED: ONDANSETRON HCL INJ/PF 4 MG/2 ML SDV IV PRN (13:52)
--- NOTE | 2020-06-03 17:32 | PDOC PROGRESS REPORT ---
Subjective Date:: 06/03/20 Subjective:: Patient still with significant sob and wob when off the bipap on nasal cannula Reason For Visit: GERD,SWALLOWING DYSFUNCTION,RIGHT LOWER LOBE Physical Exam Vital Signs: Temp Pulse Resp BP Pulse Ox 97.7 F 77 32 H 125/64 99 06/03/20 16:20 06/03/20 16:20 06/03/20 16:20 06/03/20 16:20 06/03/20 16:20 Intake & Output 06/02/20 06/03/20 06/04/20 06:59 06:59 06:59 Intake Total 787 1530 154 Output Total 450 Balance 787 1080 154 Weight 69.6 kg 64.6 kg General appearance: PRESENT: cooperative, mild distress Respiratory exam: PRESENT: accessory muscle use - Went off the BiPAP Not quite present plan on the BiPAP, prolonged expiratory phas, symmetrical, tachypnea, wheezes - Inspiratory and expiratory wheezing in all lung lea seems most pronounced in her upper airway and lower auscultation of the trachea. Not quite stridorous.. ABSENT: unlabored Cardiovascular exam: PRESENT: irregular rhythm, +S1, +S2, tachycardia GI/Abdominal exam: PRESENT: soft. ABSENT: rebound, rigid, tenderness Neurological exam: PRESENT: alert, awake, oriented to person, oriented to place, oriented to time, oriented to situation Results Laboratory Results: 06/02/20 06:06 06/03/20 04:48 06/03/20 04:48 Sodium 134.5 L Potassium 4.1 Chloride 104 Carbon Dioxide 18 L Anion Gap 13 BUN 53 H Creatinine 2.70 H Est GFR ( Amer) 20 L Glucose 211 H Calcium 9.3 Phosphorus 4.4 05/31/20 05/31/20 05/31/20 15:50 15:50 21:34 Creatine Kinase Troponin I 0.037 0.038 NT-Pro-B Natriuret Pep 7000 H 06/01/20 06/03/20 05:22 04:48 Creatine Kinase 42 Troponin I 0.030 NT-Pro-B Natriuret Pep Impressions: Chest X-Ray 05/31/20 14:34 IMPRESSION: Right hilar fullness again noted. Recommend CT for more complete characterization. Minimal right basilar opacities, possibly atelectasis or infection. Chest CT 05/31/20 15:37 IMPRESSION: Marked mediastinal and right hilar adenopathy highly concerning for neoplasm such as lymphoma. Small right pleural effusion with mild associated atelectasis. Scoliosis. KUB X-Ray 06/02/20 00:00 IMPRESSION: Mild gastric distention. No other significant findings. Assessment and Plan - Diagnosis (1) Respiratory distress Is this a current diagnosis for this admission?: Yes Plan: Quite pronounced when patient is on nasal cannula and off the BiPAP. Not much improvement with treatment for COPD exacerbation. I discussed case with biotechnologist Costa last night who evaluated patient and declined for ICU admission. ? if stridor. Mostly Insp & exp wheeze pronounced over trachea. Possibly could have tracheitis/tracheobronchitis. Currently on doxycycline. Continue steroids and bronchodilators. Unfortunately we do not have ENT consultation available currently for laryngoscopy. I will check a dry CT of the neck to look for any evidence of upper airway obstruction (2) COPD exacerbation Is this a current diagnosis for this admission?: Yes Plan: Still has significant wheezing bilaterally despite very frequent treatments with nebulizers, steroids and doxycycline. No CO2 retention on VBG today. Evaluating possibilities of upper airway disease as playing a role here. She does have extensive smoking history. (3) Mediastinal mass Is this a current diagnosis for this admission?: Yes Plan: Patient has large mediastinal and right hilar masses. There is concern for lymphoma. Oncology recommending biopsy. Discussed with IR who recommends bronchoscopic approach. We do not have engineering and operations director on-call for the next several days. I have tried calling [facility] which are all full and not accepting transfers. [place] and [facility] Intensivists Dr. Day & Dr. Mortensen have declined transfer stating that a bronch cannot be done because she is in respiratory distress and requiring Bipap. (4) Dysphagia Qualifiers: Dysphagia type: esophageal phase Qualified Code(s): R13.10 - Dysphagia, unspecified Is this a current diagnosis for this admission?: Yes Plan: Likely esophageal dysphagia. We will need to get an esophagram when patient is more stable respiratory johnson. We will keep on liquid diet for now. (5) Paroxysmal atrial fibrillation with rapid ventricular response Is this a current diagnosis for this admission?: Yes Plan: Gets more tachycardic when she takes the mask off. Still on diltiazem drip. Continue p.o. diltiazem as well. Continue heparin drip. Xarelto remains on hold in anticipation of possibly needing biopsy once respiratory status improves. Dr. Valdes following (6) Hypertension Qualifiers: Hypertension type: essential hypertension Qualified Code(s): I10 - Essential (primary) hypertension Is this a current diagnosis for this admission?: Yes Plan: Antihypertensives on hold due to soft blood pressures. (7) Hypothyroidism Qualifiers: Hypothyroidism type: unspecified Qualified Code(s): E03.9 - Hypothyroidism, unspecified Is this a current diagnosis for this admission?: Yes Plan: TSH is adequate (8) Kidney disease, chronic, stage IV (GFR 15-29 ml/min) Is this a current diagnosis for this admission?: Yes Plan: Nephrology following. Recommended gentle hydration with 1 more liter which was given today. Will check renal function in the morning. - Time Time Spent with patient: 15-24 minutes Anticipated Discharge Disposition: Home, Self Care Anticipated Discharge Timeframe: unknown
--- NOTE | 2020-06-03 21:18 | Progress Note ---
Provider Note Provider Note: CARDIOLOGY PROGRESS NOTE by Dr. Keiko Moya on 06/03/2020. SUBJECTIVE: The patient is awake alert and oriented x3 now. She is still in respiratory distress. She is on 15 mg/h of Cardizem infusion and a heart rate is still up. Will give an extra dose of digoxin now. She still continues to have stridor and continues to have inspiratory and expiratory wheezing. There is no chest pain or discomfort. The patient has cough but is unable to produce any sputum. Her voice is still hoarse. She also has some dysphagia. There is no bleeding on IV heparin. There is no TIA or CVA symptoms. Still unable to get the patient transferred since all tertiary care unit hospitalist are not accepting patients. PHYSICAL EXAMINATION: The patient is well-built. In distress due to shortness of breath. Selected Entries 06/03/20 06/03/20 06/03/20 11:00 12:12 12:30 Temperature 97.4 F Pulse Rate 106 H Heart Rate ( Monitors) Blood Pressure Blood Pressure Mean Fraction of 40 Inspired Oxygen (FIO2) Oxygen Flow 2 Rate O2 Sat by Pulse Oximetry by Telemetry 06/03/20 13:00 Temperature Pulse Rate Heart Rate ( 103 Monitors) Blood Pressure 119/70 Blood Pressure 86 Mean Fraction of Inspired Oxygen (FIO2) Oxygen Flow Rate O2 Sat by Pulse 96 Oximetry by Telemetry HEAD: Is atraumatic normocephalic. Ears nose and throat are negative. SKIN: There is no skin rashes. There is no skin lesions. There is no skin rashes. NECK: Is supple. There is no JVD. There is no accessory muscles of respiration use.. There is no lymphadenopathy. There is no goiter. Trachea central. LUNGS: There is by inspiratory stridor present. There is bilateral inspiratory and expiratory wheezing. There is scattered rhonchi. No rales of CHF. HEART: S1-S2 is heard. There is no S3 gallop. There is no S4 gallop. There is no rub. S1 is of variable intensity. There is systolic murmur left sternal border and the apex. ABDOMEN: Soft. Nontender. There is no paraspinal megaly. Bowel sounds are well heard. EXTREMITIES: Femorals are well felt. There is no femoral bruits. Leg pulses well felt. There is no pedal edema. There is no DVT or cellulitis. There is no calf tenderness. There is no cyanosis or clubbing. [employer]: The patient is awake alert oriented x3 with no focal deficits. PSYCHIATRIC: The patient judgment insight are intact, although she is slightly anxious. Labs- All tests 24 hr 06/03/20 06/03/20 06/03/20 00:23 04:48 04:48 APTT 110.0 H 83.5 H Sodium 134.5 L Potassium 4.1 Chloride 104 Carbon Dioxide 18 L Anion Gap 13 BUN 53 H Creatinine 2.70 H Est GFR ( Amer) 20 L Est GFR (MDRD) Non-Af 17 L Glucose 211 H Calcium 9.3 Phosphorus 4.4 Creatine Kinase 42 Chest X-Ray 05/31/20 14:34 IMPRESSION: Right hilar fullness again noted. Recommend CT for more complete characterization. Minimal right basilar opacities, possibly atelectasis or infection. Chest CT 05/31/20 15:37 IMPRESSION: Marked mediastinal and right hilar adenopathy highly concerning for neoplasm such as lymphoma. Small right pleural effusion with mild associated atelectasis. Scoliosis. KUB X-Ray 06/02/20 00:00 IMPRESSION: Mild gastric distention. No other significant findings. IMPRESSION/RECOMMENDATION: 1. Altered mental status and delirium most likely secondary to infection and hypoxemia. The patient at present is awake and alert. This is most likely the effect of Ativan. 2. Atrial fibrillation with rapid ventricle response: Current continue IV Cardizem. Agree with starting the patient on p.o. Cardizem and increasing the p.o. Cardizem while decreasing the IV Cardizem infusion. Note that the patient's Xarelto has been held and the patient has been placed on heparin, in anticipation of for possible biopsy of lymph node. The patient has rapid ventricular response to her atrial fibrillation. Will give an extra dose of digoxin. We will also start the patient on digoxin. 3. Mediastinal and hilar lymphadenopathy of significance: The findings needs to be ruled out. Hematology consult requested. 4. COPD with acute exacerbation: Continue steroids and bronchodilators and antibiotics 5. Dysphonia and stridor: Whether this is secondary to tracheo- bronchitis a cute, versus secondary to lymphadenopathy causing compression of the right lower lobe bronchus. This can also explain compressive atelectasis of the right lower lobe. But also the patient's symptoms of instability and expiratory wheezing and stridor can be explained by acute tracheobronchitis. Continue continue acute treatment of tracheobronchitis with the bronchodilators, steroids and antibiotics. 6. Right lower lobe infiltrate with a small pleural effusion:: Possible pneumonia. Patient is on antibiotics. 7. Hypertension: Patient blood pressure is well controlled continue current medication. 8. Hypothyroidism: Continue current replacement as thyroid functions tests suggest the patient be euthyroid on current replacement. This is definitely not the cause of the patient's atrial fibrillation with rapid ventricular response. 9. Chronic kidney disease stage IV: Recommend nephrology consult. 10. Coronary artery disease: History of old myocardial infarction and history of coronary bypass graft surgery: No evidence of no evidence of acute coronary syndrome or non-ST elevation [place]. No anginal symptoms. Continue current treatment. Medications reviewed. Medications added. Medical regiment and management plan discussed with attending provider on the case. Discussed with patient patient's . Medical decision making is of high complexity. 40 minutes spent as patient more than 50% time spent in direct patient care. Will follow.
[2020-06-03] MEDS: DIGOXIN INJ 0.5 MG/2 ML AMPULE IV SCH (21:43)
--- NOTE | 2020-06-03 21:44 | RADIOLOGY REPORT (SQ) ---
EXAM DESCRIPTION: Site: CT SOFT TISSUE NECK WITHOUT RP: CT NECK WITHOUT IV CONTRAST CLINICAL HISTORY: 84 years Female; stridor. hilar mass,?upper airway obstruction.; TECHNIQUE: Noncontrast CT soft tissue neck. All CT scans at this facility use dose modulation, iterative reconstruction, and/or weight based dosing when appropriate to reduce radiation dose to as low as reasonably achievable. COMPARISON: CT chest 05/31/2020. No previous CT neck. FINDINGS: No enlarged cervical lymph nodes. Enlarged superior mediastinal lymph nodes are noted. At the thoracic inlet, there is a right paratracheal node 2.5 cm diameter. Bulky pretracheal mass/adenopathy is partially visualized. Visualized portions are similar to the previous CT chest. Narrowing of the distal trachea and bilateral mainstem bronchi is incompletely visualized, but grossly similar to prior exam. There is no upper tracheal airway narrowing. No hypopharyngeal airway narrowing. Epiglottis is normal. Larynx is unremarkable. 1.9 cm left upper lobe mass is also similar. Peripheral mass versus consolidation in the anterior right upper lobe is similar. There is a sinuses and mastoid air cells are clear. No suspicious focal bone lesions. There are degenerative changes of cervical spine. IMPRESSION: 1. No cervical adenopathy or upper airway narrowing. 2. Mediastinal adenopathy and left upper lobe mass as on 05/31/2020 CT chest. There is narrowing of the distal trachea and the mainstem bronchi due to extensive adenopathy, as on prior exam.
[2020-06-03] MEDS: ASPIRIN 81 MG TABLET, ENT COATED PO SCH (21:52)
[2020-06-03] MEDS: ATORVASTATIN CALCIUM 80 MG TABLET PO SCH (21:52)
[2020-06-04] MEDS: IPRATROPIUM BROMIDE 0.02% NEB 0.5 MG/2.5 ML AMPUL NEB SCH ×4 (00:10→23:35)
[2020-06-04] MEDS: LEVALBUTEROL HCL NEB 1.25 MG/3 ML AMPUL NEB SCH ×7 (00:10→23:35)
[2020-06-04] MEDS: DILTIAZEM HCL 60 MG TABLET PO SCH ×4 (00:30→17:31)
[2020-06-04] MEDS: DILTIAZEM HCL/D5W 125 MG/125 ML RTUINJ IV PRN (01:48)
[2020-06-04] MEDS: HEPARIN SODIUM,PORCINE/D5W 25,000 UNIT/250 ML RTUINJ IV PRN (02:25)
[2020-06-04] MEDS: METHYLPREDNISOLONE INJ 40 MG/1 ML SDV IV SCH ×3 (05:24→21:51)
[2020-06-04] MEDS: LEVOTHYROXINE SODIUM 0.1 MG TABLET PO SCH (05:24)
[2020-06-04] MEDS ORDERED: MORPHINE SULFATE 10 MG/ML INJ IV ONE ×2 (07:00→23:00)
[2020-06-04 07:26] LABS: HEMATOCRIT 30.4 % (36.0-47.0); HEMOGLOBIN 10.3 g/dL (12.0-15.5); MEAN CORPUSCULAR HEMOGLOBIN 29.7 pg (27.0-33.4); MEAN CORPUSCULAR HGB CONC 33.8 g/dL (32.0-36.0); MEAN CORPUSCULAR VOLUME 88 fl (80-97); PLATELET COUNT 330 10^3/uL (150-450); RED BLOOD COUNT 3.45 10^6/uL (3.72-5.28); RED CELL DISTRIBUTION WIDTH 17.1 % (11.5-14.0); WHITE BLOOD COUNT 16.6 10^3/uL (4.0-10.5)
[2020-06-04] MEDS: BUDESONIDE NEB 0.5 MG/2 ML AMPUL NEB SCH (07:44)
[2020-06-04 07:49] LABS: ANION GAP 13 (5-19); BLOOD UREA NITROGEN 59 mg/dL (7-20); CALCIUM 9.3 mg/dL (8.4-10.2); CARBON DIOXIDE 17 mmol/L (22-30); CHLORIDE 101 mmol/L (98-107); GLUCOSE 151 mg/dL (75-110); POTASSIUM 4.4 mmol/L (3.6-5.0)
[2020-06-04] MEDS: DOXYCYCLINE HYCLATE 100 MG in DEXTROSE 5%-WATER 250 ML IV SCH (09:48)
[2020-06-04] MEDS: POLYETHYLENE GLYCOL 3350 POWDER 17 GM/1 PACKET PO SCH (09:49)
[2020-06-04] MEDS: FAMOTIDINE 20 MG TABLET PO SCH ×2 (09:49→21:52)
[2020-06-04] MEDS: GUAIFENESIN 600 MG TABLET.SA PO SCH ×2 (09:49→21:52)
[2020-06-04] MEDS ORDERED: ACETAMINOPHEN 325 MG TABLET PO PRN (15:52)
[2020-06-04] MEDS ORDERED: TRAMADOL HCL 50 MG TABLET PO PRN (15:59)
[2020-06-04] MEDS ORDERED: 1/2 NORMAL SALINE 1,000 ML IV PRN (16:05)
--- NOTE | 2020-06-04 16:10 | PDOC PROGRESS REPORT ---
Subjective Date:: 06/04/20 Reason For Visit: Patient seen here in the hospital. She is looking better than when I saw him yesterday as she is now off the BiPAP on nasal cannula and able to talk for short times and without interruption. She denies history of chest pains or fever or chills. However she does not feel very good and she feels extremely weak. Labs and medications were reviewed. Urine output seems to be dropping as her renal numbers are slowly getting worse. Her was at the bedside who had questions which were answered.She is in the process of probably being transferred to a tertiary center for her mediastinal and lung lesions. Physical Exam Vital Signs: Temp Pulse Resp BP Pulse Ox 97.8 F 100 16 142/48 H 98 06/04/20 11:29 06/04/20 12:28 06/04/20 12:28 06/04/20 12:00 06/04/20 12:28 Intake & Output 06/03/20 06/04/20 06/05/20 06:59 06:59 06:59 Intake Total 1530 2292 240 Output Total 450 250 50 Balance 1080 2042 190 Weight 64.6 kg 65.2 kg General appearance: PRESENT: mild distress Respiratory exam: PRESENT: clear to auscultation carmen, decreased breath sounds. ABSENT: crackles Cardiovascular exam: PRESENT: +S1, +S2 GI/Abdominal exam: PRESENT: distended, soft, tenderness. ABSENT: organomegaly Extremities exam: ABSENT: pedal edema Neurological exam: PRESENT: alert, awake, oriented to person, oriented to place Psychiatric exam: PRESENT: anxious Results Laboratory Results: 06/04/20 06:29 06/04/20 06:29 06/04/20 06/04/20 06:29 06:29 WBC 16.6 H RBC 3.45 L Hgb 10.3 L Hct 30.4 L MCV 88 MCH 29.7 MCHC 33.8 RDW 17.1 H Plt Count 330 Sodium 130.7 L Potassium 4.4 Chloride 101 Carbon Dioxide 17 L Anion Gap 13 BUN 59 H Creatinine 3.15 H Est GFR ( Amer) 17 L Glucose 151 H Calcium 9.3 05/31/20 05/31/20 05/31/20 15:50 15:50 21:34 Creatine Kinase Troponin I 0.037 0.038 NT-Pro-B Natriuret Pep 7000 H 06/01/20 06/03/20 05:22 04:48 Creatine Kinase 42 Troponin I 0.030 NT-Pro-B Natriuret Pep Impressions: Chest X-Ray 05/31/20 14:34 IMPRESSION: Right hilar fullness again noted. Recommend CT for more complete characterization. Minimal right basilar opacities, possibly atelectasis or infection. Chest CT 05/31/20 15:37 IMPRESSION: Marked mediastinal and right hilar adenopathy highly concerning for neoplasm such as lymphoma. Small right pleural effusion with mild associated atelectasis. Scoliosis. KUB X-Ray 06/02/20 00:00 IMPRESSION: Mild gastric distention. No other significant findings. Soft Tissue Neck CT 06/03/20 00:00 IMPRESSION: 1. No cervical adenopathy or upper airway narrowing. 2. Mediastinal adenopathy and left upper lobe mass as on 05/31/2020 CT chest. There is narrowing of the distal trachea and the mainstem bronchi due to extensive adenopathy, as on prior exam. Assessment & Plan - Diagnosis (1) MELISSA (acute kidney injury) Plan: Her renal numbers are getting worse as her urine output is dropping. Clinically she still looks on the dry side and therefore will continue on IV fluid hydration. No indications for renal replacements currently. Please dose medications to GFR of less than 20 cc/min. Discussed with Dr. Parrish/hospitalist. (2) Kidney disease, chronic, stage IV (GFR 15-29 ml/min) Is this a current diagnosis for this admission?: Yes Plan: Underlying CKD stage IV with creatinine of 2 in the background of hypertension. (3) COPD exacerbation Is this a current diagnosis for this admission?: Yes Plan: Status quo. (4) Mediastinal mass Is this a current diagnosis for this admission?: Yes Plan: In the background of right pneumonia. Differential includes cancer/lymphoma. (5) Paroxysmal atrial fibrillation with rapid ventricular response Is this a current diagnosis for this admission?: Yes Plan: Decompensated rapid A. fib/ventricular response in the current setting. Currently being managed with diltiazem. I note cardiology is on board. (6) Right lower lobe pulmonary infiltrate Is this a current diagnosis for this admission?: Yes Plan: As per hospitalist.
[2020-06-04] MEDS ORDERED: GABAPENTIN 100 MG CAPSULE PO ONE (16:15)
--- NOTE | 2020-06-04 16:45 | RADIOLOGY REPORT (SQ) ---
EXAM DESCRIPTION: HIP LEFT AP/LATERAL IMAGES COMPLETED DATE/TIME: 06/04/2020 4:12 pm REASON FOR STUDY: left hip pain, sciatica, difficulty moving left hi COMPARISON: None. NUMBER OF VIEWS: Two views pelvis and left hip. LIMITATIONS: No technical limitations but there is significantly limiting osteopenia. FINDINGS: No displaced fractures identified. Subtle lucencies are seen through the subcapital femor al neck and greater trochanter on the AP pelvic image. Not as reliably demonstrated on the dedicated frog lateral hip image. Pelvis otherwise looks relatively intact. Lumbar spondylosis. OTHER: No other significant finding. IMPRESSION: Lucencies related to the left hip. Fracture not excluded. Depending on clinical presen tation, further evaluation with CT can be considered. TECHNICAL DOCUMENTATION: JOB ID: [id number] Reading location - IP/workstation name: [email or web address]
--- NOTE | 2020-06-04 17:59 | PDOC PROGRESS REPORT ---
Subjective Date:: 06/04/20 Subjective:: Patient still having shortness of breath. A little better than yesterday as she has been able to spend considerably longer amount of time off the BiPAP today. She is also complaining of sciatica type pain in her left leg which started this morning and progressive weakness of her left leg. Denies incontinence. Also having pronounced left hip pain. Reason For Visit: GERD,SWALLOWING DYSFUNCTION,RIGHT LOWER LOBE Physical Exam Vital Signs: Temp Pulse Resp BP Pulse Ox 98.1 F 111 H 18 143/98 H 93 06/04/20 15:29 06/04/20 16:37 06/04/20 16:37 06/04/20 16:17 06/04/20 16:37 Intake & Output 06/03/20 06/04/20 06/05/20 06:59 06:59 06:59 Intake Total 1530 2292 240 Output Total 450 250 50 Balance 1080 2042 190 Weight 64.6 kg 65.2 kg General appearance: PRESENT: cooperative, mild distress Mouth exam: PRESENT: neck supple Respiratory exam: PRESENT: prolonged expiratory phas, symmetrical, tachypnea, wheezes - inspiratory and expiratory wheezes in all lung lea. ABSENT: crackles, unlabored Cardiovascular exam: PRESENT: irregular rhythm, +S1, +S2, tachycardia GI/Abdominal exam: PRESENT: soft. ABSENT: rebound, rigid, tenderness Results Laboratory Results: 06/04/20 06:29 06/04/20 06:29 06/04/20 06/04/20 06:29 06:29 WBC 16.6 H RBC 3.45 L Hgb 10.3 L Hct 30.4 L MCV 88 MCH 29.7 MCHC 33.8 RDW 17.1 H Plt Count 330 Sodium 130.7 L Potassium 4.4 Chloride 101 Carbon Dioxide 17 L Anion Gap 13 BUN 59 H Creatinine 3.15 H Est GFR ( Amer) 17 L Glucose 151 H Calcium 9.3 05/31/20 05/31/20 05/31/20 15:50 15:50 21:34 Creatine Kinase Troponin I 0.037 0.038 NT-Pro-B Natriuret Pep 7000 H 06/01/20 06/03/20 05:22 04:48 Creatine Kinase 42 Troponin I 0.030 NT-Pro-B Natriuret Pep Impressions: Chest X-Ray 05/31/20 14:34 IMPRESSION: Right hilar fullness again noted. Recommend CT for more complete characterization. Minimal right basilar opacities, possibly atelectasis or infection. Chest CT 05/31/20 15:37 IMPRESSION: Marked mediastinal and right hilar adenopathy highly concerning for neoplasm such as lymphoma. Small right pleural effusion with mild associated atelectasis. Scoliosis. KUB X-Ray 06/02/20 00:00 IMPRESSION: Mild gastric distention. No other significant findings. Soft Tissue Neck CT 06/03/20 00:00 IMPRESSION: 1. No cervical adenopathy or upper airway narrowing. 2. Mediastinal adenopathy and left upper lobe mass as on 05/31/2020 CT chest. There is narrowing of the distal trachea and the mainstem bronchi due to extensive adenopathy, as on prior exam. Hip X-Ray 06/04/20 00:00 IMPRESSION: Lucencies related to the left hip. Fracture not excluded. D epending on clinical presentation, further evaluation with CT can be considered. Assessment and Plan - Diagnosis (1) Respiratory distress Is this a current diagnosis for this admission?: Yes Plan: CT neck showing extrinsic compression of the distal trachea and main bronchus by bulky lymphadenopathy. This is likely the reason why she is finding such a tough time breathing despite frequent nebs & steroids. I discussed with oncologist today about starting radiation treatment which may alter biopsy results but help shrink the mass and potentially improve breathing. Oncologist okay with this but unfortunately we do not have radiation oncology services today and not until Sunday or Sunday. Tolerated NC but keeping Bipap on standby as she will likely need it soon. Today, I have contacted [facility], [facility], [facility] and [facility] who are all at capacity and cannot accept. Accepted by [facility] [place] but on a waitlist. (2) COPD exacerbation Is this a current diagnosis for this admission?: Yes Plan: Never been dx with COPD before though had extensive smoking hx. Current wheezing could potential due to tracheal compression. Still on frequent treatments with nebulizers, steroids. D/c doxycycline. (3) Mediastinal mass Is this a current diagnosis for this admission?: Yes Plan: Patient has large mediastinal and right hilar adenopathy. IGNACIO mass. There is concern for lymphoma or lung cancer. She wants full treatment. Awaiting bronchoscopy w/ EBUS for biopsy. Awaiting tertiary transfer. (4) Dysphagia Qualifiers: Dysphagia type: esophageal phase Qualified Code(s): R13.10 - Dysphagia, unspecified Is this a current diagnosis for this admission?: Yes Plan: Esophageal dysphagia. Likely some extrinsic compression from her mediastinal adenopathy. C/w full liquid diet for now. (5) Acute kidney injury superimposed on CKD Is this a current diagnosis for this admission?: Yes Plan: Baseline CKD stage IV. Creatinine typically around 2. Now up to 3.1. Nephrology on board and recommending continuation of IV fluids in suspicion of prerenal from dehydration. (6) Paroxysmal atrial fibrillation with rapid ventricular response Is this a current diagnosis for this admission?: Yes Plan: Gets more tachycardic when she takes the mask off. Still on diltiazem drip. Continue p.o. diltiazem as well. Continue heparin drip. Xarelto remains on hold in anticipation of possibly needing biopsy once respiratory status improves. Dr. Valdes on board and started on gentle dose of digoxin. Will monitor digoxin levels closely given renal impairment (7) Left leg weakness Is this a current diagnosis for this admission?: Yes Plan: sciatica with worsening left legs weakness. On steroids. Try gabapentin low dose. Prn analgesics. STAT MRI L spine. (8) Hypothyroidism Qualifiers: Hypothyroidism type: unspecified Qualified Code(s): E03.9 - Hypothyroidism, unspecified Is this a current diagnosis for this admission?: Yes Plan: TSH is adequate (9) Coronary artery disease Qualifiers: Coronary Disease-Associated Artery/Lesion type: [place] artery [place] vs. transplanted heart: [place] heart Associated angina: without angina Qualified Code(s): I25.10 - Atherosclerotic heart disease of [place] coronary artery without angina pectoris Is this a current diagnosis for this admission?: Yes Plan: Distant history of CABG about 15 years ago. (10) Hypertension Qualifiers: Hypertension type: essential hypertension Qualified Code(s): I10 - Essential (primary) hypertension Is this a current diagnosis for this admission?: Yes Plan: Antihypertensives on hold - Time Time Spent with patient: 35 or more minutes Anticipated Discharge Disposition: Tertiary Anticipated Discharge Timeframe: when bed available
--- NOTE | 2020-06-04 18:50 | RADIOLOGY REPORT (SQ) ---
EXAM DESCRIPTION: MRI LUMBAR SPINE WITHOUT IMAGES COMPLETED DATE/TIME: 06/04/2020 6:35 pm REASON FOR STUDY: sciatica, unable to move left leg. COMPARISON: None. TECHNIQUE: Sagittal and Axial imaging includes T1, T2, STIR and gradient echo sequences. Coronal T2/ HASTE imaging. LIMITATIONS: None. FINDINGS: VISUALIZED UPPER ABDOMEN: Limited evaluation. No acute or suspicious findings suggested. SEGMENTATION: No transitional anatomy. The lowest well-developed disc space is labeled L5-S1. ALIGNMENT: Scoliosis. VERTEBRAE: Intact. BONE MARROW: Normal. No marrow replacement or reactive changes. DISC SIGNAL: Diffuse variable signal and height loss. POSTERIOR ELEMENTS: No pars defect detected. Variable facet degenerative overgrowth. HARDWARE: None in the spine. CORD AND CONUS: Normal in size and signal intensity. Conus at the appropriate level. SOFT TISSUES: Incompletely evaluated complex mass in the left iliac fossa. This elevates the left ps oas muscle. There are internal fluid fluid levels. Partially out of the field of view, likely measu ring 10 cm or more. L1-L2: Mild disc and facet disease with mild right lateral recess narrowing and moderate right forami nal stenosis. L2-L3: Disc bulge and facet overgrowth with slight lateral recess narrowing and up to moderate left f oraminal stenosis. L3-L4: Disc and facet disease without significant central stenosis. Up to moderate left foraminal na rrowing. L4-L5: Disc and facet disease. Central canal is relatively patent. Moderate foraminal stenosis, lef t greater than right. L5-S1: No significant spinal stenosis or exit foraminal stenosis. LOWER THORACIC: Incompletely imaged. No stenosis seen. SACRUM: Visualized upper sacrum intact. OTHER: No other significant findings. IMPRESSION: 1. Scoliosis and spondylosis without suggestion of cord compression or high-grade central stenosis. Variable foraminal narrowing is generally up to moderate. 2. Complex mass in the left iliac fossa. This contains variable fluid levels, and is not clearly bow el. Differential mainly includes hematoma and abscess. Further evaluation with CT to better charact erize the lesion may be warranted. TECHNICAL DOCUMENTATION: JOB ID: [id number] 2010 [employer]- All Rights Reserved Reading location - IP/workstation name: [email or web address]
--- NOTE | 2020-06-04 20:35 | Progress Note ---
Provider Note Provider Note: Cardiology PROGRESS NOTE by Dr. Keiko Moya on 06/04/2020. SUBJECTIVE: The patient continues to be short of breath but slightly better. She is off the BiPAP at present and is on nasal cannula. She still has the wheezing. She denies any chest pain or discomfort. 8 seems that the patient has been accepted at [facility] but she is waiting for a bed. She does have some orthopnea but no PND there is no leg edema. The patient continues to be in atrial fibrillation with rapid ventricular response but mostly in the low 100s. At times it goes below 100. There is no ventricular arrhythmias seen on the monitor. PHYSICAL EXAMINATION: The patient is well-built. In mild respiratory distress. Selected Entries 06/04/20 06/04/20 15:00 15:29 Temperature 98.1 F Temperature Oral Source Pulse Rate 114 H 89 Respiratory 34 H Rate Blood Pressure 153/75 H Blood Pressure 101 Mean BP Location Left Arm BP Position Supine O2 Sat by Pulse 98 Oximetry Oxygen Flow 5.00 Rate Oxygen Delivery Nasal Cannula Method HEAD: Is atraumatic normocephalic. Ears nose and throat are negative. SKIN: There is no skin rashes. There is no skin lesions. There is no skin rashes. NECK: Is supple. There is no JVD. There is no accessory muscles of respiration use.. There is no lymphadenopathy. There is no goiter. Trachea central. LUNGS: There is by inspiratory stridor present. There is bilateral inspiratory and expiratory wheezing. There is scattered rhonchi. No rales of CHF. HEART: S1-S2 is heard. There is no S3 gallop. There is no S4 gallop. There is no rub. S1 is of variable intensity. There is systolic murmur left sternal border and the apex. ABDOMEN: Soft. Nontender. There is no paraspinal megaly. Bowel sounds are well heard. EXTREMITIES: Femorals are well felt. There is no femoral bruits. Leg pulses well felt. There is no pedal edema. There is no DVT or cellulitis. There is no calf tenderness. There is no cyanosis or clubbing. INCIDENT COORDINATOR: The patient is awake alert oriented x3 with no focal deficits. PSYCHIATRIC: The patient judgment insight are intact, although she is slightly anxious. Labs- All tests 24 hr 06/04/20 06/04/20 06/04/20 06:29 06:29 06:29 WBC 16.6 H RBC 3.45 L Hgb 10.3 L Hct 30.4 L MCV 88 MCH 29.7 MCHC 33.8 RDW 17.1 H Plt Count 330 APTT 67.6 H Sodium 130.7 L Potassium 4.4 Chloride 101 Carbon Dioxide 17 L Anion Gap 13 BUN 59 H Creatinine 3.15 H Est GFR ( Amer) 17 L Est GFR (MDRD) Non-Af 14 L Glucose 151 H Calcium 9.3 Chest X-Ray 05/31/20 14:34 IMPRESSION: Right hilar fullness again noted. Recommend CT for more complete characterization. Minimal right basilar opacities, possibly atelectasis or infection. Chest CT 05/31/20 15:37 IMPRESSION: Marked mediastinal and right hilar adenopathy highly concerning for neoplasm such as lymphoma. Small right pleural effusion with mild associated atelectasis. Scoliosis. KUB X-Ray 06/02/20 00:00 IMPRESSION: Mild gastric distention. No other significant findings. Soft Tissue Neck CT 06/03/20 00:00 IMPRESSION: 1. No cervical adenopathy or upper airway narrowing. 2. Mediastinal adenopathy and left upper lobe mass as on 05/31/2020 CT chest. There is narrowing of the distal trachea and the mainstem bronchi due to extensive adenopathy, as on prior exam. Hip X-Ray 06/04/20 00:00 IMPRESSION: Lucencies related to the left hip. Fracture not excluded. Depending on clinical presentation, further evaluation with CT can be considered. Lumbar Spine MRI 06/04/20 00:00 IMPRESSION: 1. Scoliosis and spondylosis without suggestion of cord compression or high- grade central stenosis. Variable foraminal narrowing is generally up to moderate. 2. Complex mass in the left iliac fossa. This contains variable fluid levels, and is not clearly bowel. Differential mainly includes hematoma and abscess. Further evaluation with CT to better characterize the lesion may be warranted. IMPRESSION/RECOMMENDATION: 1. Altered mental status and delirium most likely secondary to infection and hypoxemia. The patient at present is awake and alert. This is most likely the effect of Ativan. 2. Atrial fibrillation with rapid ventricle response: Current continue IV Cardizem. Agree with starting the patient on p.o. Cardizem and increasing the p.o. Cardizem while decreasing the IV Cardizem infusion. Note that the patient's Xarelto has been held and the patient has been placed on heparin, in anticipation of for possible biopsy of lymph node. The patient has rapid ventricular response to her atrial fibrillation. Will give an extra dose of digoxin. We will also start the patient on digoxin, on alternate days.. 3. Mediastinal and hilar lymphadenopathy of significance: The findings needs to be ruled out. Hematology consult requested. 4. COPD with acute exacerbation: Continue steroids and bronchodilators and antibiotics 5. Dysphonia and stridor: Whether this is secondary to tracheo- bronchitis a cute, versus secondary to lymphadenopathy causing compression of the right lower lobe bronchus. This can also explain compressive atelectasis of the right lower lobe. But also the patient's symptoms of instability and expiratory wheezing and stridor can be explained by acute tracheobronchitis. Continue continue acute treatment of tracheobronchitis with the bronchodilators, steroids and antibiotics. 6. Right lower lobe infiltrate with a small pleural effusion:: Possible pneumonia. Patient is on antibiotics. 7. Hypertension: Patient blood pressure is well controlled continue current medication. 8. Hypothyroidism: Continue current replacement as thyroid functions tests suggest the patient be euthyroid on current replacement. This is definitely not the cause of the patient's atrial fibrillation with rapid ventricular response. 9. Chronic kidney disease stage IV: Recommend nephrology consult. 10. Coronary artery disease: History of old myocardial infarction and history of coronary bypass graft surgery: No evidence of no evidence of acute coronary syndrome or non-ST elevation TN. No anginal symptoms. Continue current treatment. Medications reviewed. Medications added. Medical regiment and management plan discussed with attending provider on the case. Discussed with patient patient's . Medical decision making is of high complexity. 40 minutes spent as patient more than 50% time spent in direct patient care. Will follow.
[2020-06-04] MEDS ORDERED: NORMAL SALINE 1000 ML 1,000 ML IV ONE (21:36)
[2020-06-04] MEDS: GABAPENTIN 100 MG CAPSULE PO SCH (21:51)
[2020-06-04] MEDS: ATORVASTATIN CALCIUM 80 MG TABLET PO SCH (21:51)
[2020-06-04] MEDS: ASPIRIN 81 MG TABLET, ENT COATED PO SCH (21:52)
[2020-06-04] MEDS: MELATONIN 5 MG TABLET PO PRN (21:52)
[2020-06-04] MEDS: NORMAL SALINE 1000 ML 1,000 ML IV PRN (22:48)
[2020-06-04] MEDS ORDERED: METHYLPREDNISOLONE INJ 40 MG/1 ML SDV IV ONE (23:45)
[2020-06-04 23:58] LABS: ARTERIAL BLOOD BASE EXCESS -12.1 mmol/L; ARTERIAL BLOOD H2CO3 1.69 mmol/L (1.05-1.35); ARTERIAL BLOOD HCO3 17.2 mmol/L (20-24); ARTERIAL BLOOD O2 SATURATION 89.3 % (94-98)
[2020-06-05 00:01] LABS: ARTERIAL BLOOD FIO2 40%
[2020-06-05 00:04] LABS: ARTERIAL BLOOD PH 7.11 (7.35-7.45)
--- NOTE | 2020-06-05 00:43 | RADIOLOGY REPORT (SQ) ---
EXAM DESCRIPTION: X-RAY CHEST- One View CLINICAL HISTORY: Dyspnea COMPARISON: CT of the chest May 31, 2020 TECHNIQUE: Single view of the chest. FINDINGS: There are overlying EKG leads. Left upper lobe mass is better detailed on prior CT chest. Additionally, right pleural effusion and adjacent patchy opacities is also better visualized on prior CT are grossly stable given differences in technique. The cardiomediastinal silhouette is stable in size with redemonstration of cardiothoracic postoperative changes including median sternotomy wires. Atherosclerotic vascular disease is noted. Osseous structures appear grossly stable. IMPRESSION: Redemonstration of left upper lobe mass and right pleural effusion with adjacent nonspecific opacities, better visualized on recent CT.
[2020-06-05 00:46] LABS: HEMATOCRIT 29.6 % (36.0-47.0); HEMOGLOBIN 9.7 g/dL (12.0-15.5); MEAN CORPUSCULAR HEMOGLOBIN 29.3 pg (27.0-33.4); MEAN CORPUSCULAR HGB CONC 32.8 g/dL (32.0-36.0); MEAN CORPUSCULAR VOLUME 89 fl (80-97); PLATELET COUNT 330 10^3/uL (150-450); RED BLOOD COUNT 3.31 10^6/uL (3.72-5.28); RED CELL DISTRIBUTION WIDTH 17.7 % (11.5-14.0); WHITE BLOOD COUNT 16.9 10^3/uL (4.0-10.5)
[2020-06-05 00:51] LABS: INTERNATIONAL RATION (INR) 1.24; PROTHROMBIN TIME 15.8 SEC (11.4-15.4)
[2020-06-05 00:52] LABS: PARTIAL THROMBOPLASTIN TIME 31.7 SEC (23.5-35.8)
[2020-06-05 01:33] LABS: ABSOLUTE LYMPHOCYTES# (MANUAL) 0.7 10^3/uL (0.5-4.7); ABSOLUTE MONOCYTES # (MANUAL) 1.5 10^3/uL (0.1-1.4); BASOPHILS % (MANUAL) 0 % (0-2); EOSINOPHILS % (MANUAL) 0 % (0-6); LYMPHOCYTES % (MANUAL) 4 % (13-45); MONOCYTES % (MANUAL) 9 % (3-13); SEGMENTED NEUTROPHILS % (MAN) 87 % (42-78); TOTAL CELLS COUNTED 100
[2020-06-05 01:34] LABS: ANISOCYTOSIS 1+; OVALOCYTES SLIGHT; PLATELET COMMENT ADEQUATE; POIKILOCYTOSIS 1+; TEAR DROP CELLS SLIGHT
--- NOTE | 2020-06-05 01:40 | Progress Note ---
Provider Note Provider Note: Jayna Genao is an 84 year-old female with a PMH of HTN, HLD, paroxysmal atrial fibrillation, apparent COPD with extensive smoking Hx, and CKD stage IV with a baseline creatinine of 2 who [facility] with shortness of breath. A chest CT was performed noting pulmonary nodules with mediastinal and right hilar lymphadenopathy which is concerning for malignancy. She has been oriented and conversing with the staff on the fifth floor and actually was able to tolerate nasal cannula for a while today. However, she experienced altered mental status and increased work of breathing this evening for which BiPAP was resumed and Dr. Middleton asked me to evaluate the patient to determine if she requires endotracheal intubation. To note, she remains a full code per her wishes as well as family wishes. She is reportedly on the waiting list to be transferred to [facility] but has not yet received a bed. RR 26 Vt 360 mL on 40% IPAP 12 EPAP 6 labored with predominantly expiratory accessory muscle use RT at bedside and patient had just finished a Xopenex neb. ABG: pH 7.11 PaCO2 56 PaO2 75 HCO3 17 SPO2 89% Base deficit of 12 following 1 liter of NS as a bolus Imaging: CXR without any infiltrate or pulmonary congestion per my read CT chest with mediastinal as well as right hilar lymphadenopathy compressing the distal trachea and main bronchus, R anterior chest wall as well as IGNACIO pulmonary nodules I performed bedside [id number] ultrasound to help determine metabolic acidosis cause and provide guidance for Dr Middleton. Patient is profoundly hypovolemic with respirophasic changes of both ventricles as well as 100% collapse of the IVC in both hepatic and sub-xiphoid views. No significant ve ntricular wall motion abnormalities visualized. BNP on 05/31/2020 was 7,000; however, there is no overt pulmonary vascular congestion on CXR and patient hypovolemic on ultrasound. Assessment: -Acute respiratory failure with hypoxia and hypercapnia -Metabolic as well as respiratory acidosis -Pulmonary nodules and mediastinal mass concerning for malignancy -MELISSA -Hypovolemia -Hyponatremia -Atrial fibrillation Plan: -I increased her IPAP to 18 and EPAP to 8 for which her Vt increased to 570-610 mL and her RR subsequently decreased to 17 with improvement in her expiratory work of breathing from severe to mild. Her mental status also improved as a result and she seems more like herself according to the RN and Dr Middleton. -Endotracheal intubation is not indicated at this time and it is likely that even if performed, patient will still experience expiratory accessory muscle use at times given the distal tracheal mass with her attempt to force air out of her lungs. -Continue scheduled Levalbuterol nebs -Consider IV steroids, though this may not prove helpful -Patient already received 1L of NS that completed ~15 min prior to ABG per RN, which was about 60 minutes prior to the ultrasound I performed demonstrating profound hypovolemia. I recommend another 1L of NS over 4 hrs, followed by a balanced crystalloid solution pending updated chemistries at a normal maintenance rate. I suspect MELISSA is 2/2 hypovolemia. -Consider repeating ABG in 4 hours after another liter of crystalloid to evaluate metabolic acidosis and base deficit as well as correction of PaCO2. Have discussed the above recommendations/interventions with Dr Middleton and he is in agreement that the patient can remain in Rm [id number] given her improvement and in light of ultrasound information provided. Please do not hesitate to re-consult ICU team if patient's condition worsens necessitating re-evaluation. Total critical care time spent was 55 minutes reviewing medical record to include lab work, assessing/re-assessing patient, interpreting ABG and chest x- ray, and performing [id number] ultrasound to guide care for which the patient is currently experiencing organ failure.
[2020-06-05] MEDS: DILTIAZEM HCL 60 MG TABLET PO SCH ×4 (02:04→17:33)
[2020-06-05] MEDS: DILTIAZEM HCL/D5W 125 MG/125 ML RTUINJ IV PRN (02:48)
[2020-06-05 04:05] LABS: ARTERIAL BLOOD BASE EXCESS -10.7 mmol/L; ARTERIAL BLOOD FIO2 40%; ARTERIAL BLOOD H2CO3 1.25 mmol/L (1.05-1.35); ARTERIAL BLOOD HCO3 16.5 mmol/L (20-24); ARTERIAL BLOOD O2 SATURATION 93.9 % (94-98); ARTERIAL BLOOD PCO2 41.5 mmHg (35-45); ARTERIAL BLOOD PH 7.22 (7.35-7.45); ARTERIAL BLOOD PO2 82.2 mmHg (80-100); ARTERIAL BLOOD TOTAL CO2 17.7 mmol/L (21-25)
[2020-06-05] MEDS: LEVALBUTEROL HCL NEB 1.25 MG/3 ML AMPUL NEB SCH ×6 (04:07→23:44)
[2020-06-05 04:47] LABS: INTERNATIONAL RATION (INR) 1.19; PROTHROMBIN TIME 15.3 SEC (11.4-15.4)
[2020-06-05 05:08] LABS: ALKALINE PHOSPHATASE 55 U/L (38-126); ASPARTATE AMINO TRANSFERASE 38 U/L (14-36); BILIRUBIN,DIRECT 0.3 mg/dL (0.0-0.4); BILIRUBIN,TOTAL 0.3 mg/dL (0.2-1.3); BLOOD UREA NITROGEN 64 mg/dL (7-20); CALCIUM 8.5 mg/dL (8.4-10.2); CARBON DIOXIDE 18 mmol/L (22-30); DIGOXIN 1.39 ng/mL (0.8-2.0); GLUCOSE 158 mg/dL (75-110); POTASSIUM 4.8 mmol/L (3.6-5.0); TOTAL PROTEIN 5.5 g/dL (6.3-8.2)
[2020-06-05 05:09] LABS: HEMATOCRIT 28.9 % (36.0-47.0); HEMOGLOBIN 9.6 g/dL (12.0-15.5); MEAN CORPUSCULAR HEMOGLOBIN 29.3 pg (27.0-33.4); MEAN CORPUSCULAR HGB CONC 33.2 g/dL (32.0-36.0); MEAN CORPUSCULAR VOLUME 88 fl (80-97); PLATELET COUNT 269 10^3/uL (150-450); RED BLOOD COUNT 3.27 10^6/uL (3.72-5.28); RED CELL DISTRIBUTION WIDTH 17.3 % (11.5-14.0); WHITE BLOOD COUNT 14.9 10^3/uL (4.0-10.5)
[2020-06-05 05:11] LABS: ANION GAP 9 (5-19); CHLORIDE 105 mmol/L (98-107)
[2020-06-05 05:29] LABS: ABSOLUTE LYMPHOCYTES# (MANUAL) 1.2 10^3/uL (0.5-4.7); ABSOLUTE MONOCYTES # (MANUAL) 1.2 10^3/uL (0.1-1.4); ANISOCYTOSIS 1+; BAND NEUTROPHILS % (MANUAL) 1 % (3-5); BASOPHILS % (MANUAL) 0 % (0-2); EOSINOPHILS % (MANUAL) 0 % (0-6); LYMPHOCYTES % (MANUAL) 8 % (13-45); MONOCYTES % (MANUAL) 8 % (3-13); NUCLEATED RED BLOOD CELLS 1 /100 WBC (0); PLATELET COMMENT ADEQUATE; SEGMENTED NEUTROPHILS % (MAN) 83 % (42-78); TOTAL CELLS COUNTED 100; TOXIC VACUOLATION PRESENT
[2020-06-05] MEDS: NORMAL SALINE 1000 ML 1,000 ML IV PRN ×2 (05:53→06:45)
[2020-06-05] MEDS: LEVOTHYROXINE SODIUM 0.1 MG TABLET PO SCH (06:45)
[2020-06-05] MEDS: METHYLPREDNISOLONE INJ 40 MG/1 ML SDV IV SCH ×3 (06:45→21:21)
[2020-06-05] MEDS ORDERED: DEXTROSE 5%-WATER 1000 ML 1,000 ML with SODIUM BICARBONATE 150 MEQ IV PRN ×4 (07:02→10:30)
[2020-06-05] MEDS: BUDESONIDE NEB 0.5 MG/2 ML AMPUL NEB SCH (09:18)
[2020-06-05] MEDS: IPRATROPIUM BROMIDE 0.02% NEB 0.5 MG/2.5 ML AMPUL NEB SCH ×3 (09:18→23:44)
[2020-06-05] MEDS: LOSARTAN POTASSIUM 50 MG TABLET PO SCH (09:44)
[2020-06-05] MEDS: POLYETHYLENE GLYCOL 3350 POWDER 17 GM/1 PACKET PO SCH (09:44)
[2020-06-05] MEDS: GUAIFENESIN 600 MG TABLET.SA PO SCH (09:44)
[2020-06-05] MEDS: FAMOTIDINE 20 MG TABLET PO SCH (09:44)
[2020-06-05] MEDS: GABAPENTIN 100 MG CAPSULE PO SCH (09:44)
--- NOTE | 2020-06-05 11:26 | RADIOLOGY REPORT (SQ) ---
EXAM DESCRIPTION: CT ABD/PELVIS NO ORAL OR IV IMAGES COMPLETED DATE/TIME: 06/05/2020 11:08 am REASON FOR STUDY: Left iliac fossa mass COMPARISON: 2019 CT chest. MRI lumbar spine from yesterday. TECHNIQUE: CT scan of the abdomen and pelvis performed without intravenous or oral contrast. Images reviewed with lung, soft tissue, and bone windows. Reconstructed coronal and sagittal MPR images revi ewed. All images stored on PACS. All CT scanners at this facility use dose modulation, iterative reconstruction, and/or weight based d osing when appropriate to reduce radiation dose to as low as reasonably achievable (ALARA). [facility]: Dose Right [facility]: CareDose [facility]: Dose Right [facility]: Teradose 4D [facility]: Smart [employer] RADIATION DOSE: mGy. LIMITATIONS: None. FINDINGS: LEFT ILIAC FOSSA MASS: As seen on lumbar spine MRI from yesterday. Mass appears to be ce ntered in the iliacus muscle. Up to almost 9 cm in transverse dimension. At least 17 cm craniocauda l with extension into the proximal left thigh iliopsoas muscle. This is a mixed density soft tissue and cystic mass and does not communicate with bowel. No surrounding inflammatory changes. LOWER CHEST: Volume loss right lower lobe. Small bilateral effusions. A ground-glass right middle l obe infiltrate is not seen on prior chest CT. NON-CONTRASTED LIVER, SPLEEN, ADRENALS: Scattered low-density masses in the liver, probable cysts but otherwise incompletely characterized. No gross splenic mass. No adrenal mass. PANCREAS: No masses. No peripancreatic inflammatory changes. GALLBLADDER: Mildly distended but otherwise grossly normal. Cholelithiasis not entirely excluded. RIGHT KIDNEY AND URETER: No solid masses. No significant calcification. No hydronephrosis or hydroure ter. LEFT KIDNEY AND URETER: No solid masses. No significant calcification. No hydronephrosis or hydrouret er. AORTA AND RETROPERITONEUM: Dense aortic calcification without gross aneurysm. No periaortic mass. L eft iliac fossa changes are separately described above. BOWEL AND PERITONEAL CAVITY: Mild epigastric gaseous distention appears to be stomach and colonic. N o ascites or abnormal gas. APPENDIX: Not visualized. PELVIS, BLADDER, AND ABDOMINAL WALL:No free fluid. Bladder decompressed by a Dee catheter. Fibroi d uterus. BONES: No significant findings. OTHER: No other significant finding. IMPRESSION: 1. Left iliac fossa mass is presumed intramuscular hematoma. Abscess is not excluded although the le agusto does not have a particularly inflammatory appearance. Neoplasm is in the differential but felt to be less likely. 2. Other findings as outlined above. Right middle lobe infiltrate. TECHNICAL DOCUMENTATION: JOB ID: [id number] Quality ID # [id number]: Final reports with documentation of one or more dose reduction techniques (e.g., Au tomated exposure control, adjustment of the mA and/or kV according to patient size, use of iterative reconstruction technique) 2010 [employer]- All Rights Reserved Reading location - IP/workstation name: [email or web address]
--- NOTE | 2020-06-05 12:15 | PDOC PROGRESS REPORT ---
Subjective Date:: 06/05/20 Subjective:: Patient is on BiPAP and is at bedside. She remains confused and uncomfortable, but is very much aware of her situation and the problems with moving forward with treatment. Reason For Visit: GERD,SWALLOWING DYSFUNCTION,RIGHT LOWER LOBE Physical Exam Vital Signs: Temp Pulse Resp BP Pulse Ox 97.4 F 90 28 H 155/95 H 91 L 06/05/20 11:49 06/05/20 12:00 06/05/20 11:55 06/05/20 12:00 06/05/20 11:55 Intake & Output 06/04/20 06/05/20 06/06/20 06:59 06:59 06:59 Intake Total 2 2004 Output Total 250 175 Balance 2041 183 Weight 65.2 kg 65.4 kg Exam: 84 year old female in moderate distress on BiPAP. Head exam: PRESENT: atraumatic, normocephalic Eye exam: PRESENT: EOMI Respiratory exam: PRESENT: other - breath sounds obscured by BiPAP machine. Cardiovascular exam: PRESENT: other - Heart sounds obscured by BiPAP machine, but regular in rate on monitor. GI/Abdominal exam: PRESENT: other - Distended abdomen, but states this is her baseline. Extremities exam: ABSENT: pedal edema Skin exam: PRESENT: normal color Results Laboratory Results: 06/05/20 04:29 06/05/20 04:29 06/04/20 06/05/20 06/05/20 23:40 00:31 03:35 WBC 16.9 H RBC 3.31 L Hgb 9.7 L Hct 29.6 L MCV 89 MCH 29.3 MCHC 32.8 RDW 17.7 H Plt Count 330 Seg Neutrophils % Not Reportable Carbonic Acid 1.69 H 1.25 HCO3/H2CO3 Ratio 10:1 13:1 ABG pH 7.11 L* 7.22 L ABG pCO2 56.0 H 41.5 ABG pO2 75.0 L 82.2 ABG HCO3 17.2 L 16.5 L ABG O2 Saturation 89.3 L 93.9 L ABG Base Excess -12.1 -10.7 FiO2 40% 40% Sodium Potassium Chloride Carbon Dioxide Anion Gap BUN Creatinine Est GFR ( Amer) Glucose Calcium Total Bilirubin AST Alkaline Phosphatase Total Protein Albumin 06/05/20 06/05/20 04:29 04:29 WBC 14.9 H RBC 3.27 L Hgb 9.6 L Hct 28.9 L MCV 88 MCH 29.3 MCHC 33.2 RDW 17.3 H Plt Count 269 Seg Neutrophils % Not Reportable Carbonic Acid HCO3/H2CO3 Ratio ABG pH ABG pCO2 ABG pO2 ABG HCO3 ABG O2 Saturation ABG Base Excess FiO2 Sodium 132.3 L Potassium 4.8 Chloride 105 Carbon Dioxide 18 L Anion Gap 9 BUN 64 H Creatinine 3.46 H Est GFR ( Amer) 15 L Glucose 158 H Calcium 8.5 Total Bilirubin 0.3 AST 38 H Alkaline Phosphatase 55 Total Protein 5.5 L Albumin 3.0 L 05/31/20 05/31/20 05/31/20 15:50 15:50 21:34 Creatine Kinase Troponin I 0.037 0.038 NT-Pro-B Natriuret Pep 7000 H 06/01/20 06/03/20 05:22 04:48 Creatine Kinase 42 Troponin I 0.030 NT-Pro-B Natriuret Pep Impressions: Chest CT 05/31/20 15:37 IMPRESSION: Marked mediastinal and right hilar adenopathy highly concerning for neoplasm such as lymphoma. Small right pleural effusion with mild associated atelectasis. Scoliosis. KUB X-Ray 06/02/20 00:00 IMPRESSION: Mild gastric distention. No other significant findings. Soft Tissue Neck CT 06/03/20 00:00 IMPRESSION: 1. No cervical adenopathy or upper airway narrowing. 2. Mediastinal adenopathy and left upper lobe mass as on 05/31/2020 CT chest. There is narrowing of the distal trachea and the mainstem bronchi due to extensive adenopathy, as on prior exam. Abdomen/Pelvis CT 06/04/20 00:00 IMPRESSION: 1. Left iliac fossa mass is presumed intramuscular hematoma. Abscess is not excluded although the lesion does not have a particularly inflammatory appearance. Neoplasm is in the differential but felt to be less likely. 2. Other findings as outlined above. Right middle lobe infiltrate. Hip X-Ray 06/04/20 00:00 IMPRESSION: Lucencies related to the left hip. Fracture not excluded. Depending on clinical presentation, further evaluation with CT can be considered. Lumbar Spine MRI 06/04/20 00:00 IMPRESSION: 1. Scoliosis and spondylosis without suggestion of cord compression or high- grade central stenosis. Variable foraminal narrowing is generally up to moderate. 2. Complex mass in the left iliac fossa. This contains variable fluid levels, and is not clearly bowel. Differential mainly includes hematoma and abscess. Further evaluation with CT to better characterize the lesion may be warranted. Chest X-Ray 06/04/20 23:38 IMPRESSION: Redemonstration of left upper lobe mass and right pleural effusion with adjacent nonspecific opacities, better visualized on recent CT. Assessment & Plan - Diagnosis (1) Mediastinal mass Is this a current diagnosis for this admission?: Yes Plan: Plan for bronchoscopy by Dr. Valle on Sunday (48 hours from now). Transfer has not been possible. Her Cr is actually getting worse instead of better, so CT of A/P could not be done with contrast, but non-contrasted from yesterday does not show any other areas appropriate for biopsy. Events of the past few days have been reviewed. I spoke with Dr. Parrish yesterday about this patient at length. She is already receiving steroids. Although radiation therapy may be used to help shrink cancers in this situation, Dr. Cr is also out of town until Sunday and starting treatment without a diagnosis is also very risky, as this may prevent definitive diagnosis in the future. I will continue to follow with you. - Time Time Spent with patient: 15-24 minutes
[2020-06-05 15:19] LABS: ANION GAP 9 (5-19); BLOOD UREA NITROGEN 65 mg/dL (7-20); CALCIUM 8.3 mg/dL (8.4-10.2); CARBON DIOXIDE 22 mmol/L (22-30); CHLORIDE 101 mmol/L (98-107); GLUCOSE 239 mg/dL (75-110); POTASSIUM 4.7 mmol/L (3.6-5.0)
[2020-06-05 16:25] LABS: HEMATOCRIT 28.8 % (36.0-47.0); HEMOGLOBIN 9.6 g/dL (12.0-15.5); MEAN CORPUSCULAR HEMOGLOBIN 30.1 pg (27.0-33.4); MEAN CORPUSCULAR HGB CONC 33.4 g/dL (32.0-36.0); MEAN CORPUSCULAR VOLUME 90 fl (80-97); PLATELET COUNT 378 10^3/uL (150-450); RED CELL DISTRIBUTION WIDTH 17.3 % (11.5-14.0); WHITE BLOOD COUNT 19.7 10^3/uL (4.0-10.5)
[2020-06-05 16:43] LABS: ARTERIAL BLOOD BASE EXCESS -7.9 mmol/L; ARTERIAL BLOOD H2CO3 1.85 mmol/L (1.05-1.35); ARTERIAL BLOOD HCO3 21.1 mmol/L (20-24); ARTERIAL BLOOD O2 SATURATION 86.4 % (94-98); ARTERIAL BLOOD PCO2 61.6 mmHg (35-45)
[2020-06-05 16:44] LABS: ARTERIAL BLOOD FIO2 40%
[2020-06-05 16:48] LABS: ARTERIAL BLOOD PH 7.15 (7.35-7.45)
[2020-06-05] MEDS ORDERED: GLUCAGON,HUMAN RECOMB 1 MG INJ SUBCUT PRN (17:24)
[2020-06-05] MEDS ORDERED: DEXTROSE 50%-WATER 25 GM/50 ML DISP.SYRIN IV PRN ×2 (17:24)
[2020-06-05] MEDS ORDERED: DEXTROSE 40% GEL 15 GM TUBE PO PRN ×2 (17:24)
[2020-06-05 18:30] LABS: ARTERIAL BLOOD BASE EXCESS -5.6 mmol/L; ARTERIAL BLOOD FIO2 40%; ARTERIAL BLOOD H2CO3 1.41 mmol/L (1.05-1.35); ARTERIAL BLOOD HCO3 21.1 mmol/L (20-24); ARTERIAL BLOOD O2 SATURATION 86.8 % (94-98); ARTERIAL BLOOD PCO2 46.9 mmHg (35-45); ARTERIAL BLOOD PH 7.27 (7.35-7.45); ARTERIAL BLOOD PO2 58.9 mmHg (80-100); ARTERIAL BLOOD TOTAL CO2 22.5 mmol/L (21-25)
[2020-06-05] MEDS ORDERED: FUROSEMIDE INJ/PF 40 MG/4 ML SDV IV ONE ×2 (18:47)
--- NOTE | 2020-06-05 19:53 | PDOC PROGRESS REPORT ---
Subjective Date:: 06/05/20 Subjective:: Patient is not doing any better. Still short of breath signifcantly and getting encephalopathy. Seen by Nurse Aide last night. She is oliguric now also. I discontinued hep gtt yesterday due to iliac hematoma. Tried pulling off mask sometimes today. Reason For Visit: GERD,SWALLOWING DYSFUNCTION,RIGHT LOWER LOBE Physical Exam Vital Signs: Temp Pulse Resp BP Pulse Ox 97.4 F 96 26 H 95/34 L 91 L 06/05/20 11:49 06/05/20 18:30 06/05/20 17:08 06/05/20 18:30 06/05/20 17:08 Intake & Output 06/04/20 06/05/20 06/06/20 06:59 06:59 06:59 Intake Total 2291 2004 168 Output Total 250 175 Balance 2041 1829 1684 Weight 65.2 kg 65.4 kg General appearance: PRESENT: mild distress Eye exam: PRESENT: periorbital swelling Neck exam: PRESENT: JVD Respiratory exam: PRESENT: crackles, retraction, rhonchi, tachypnea, wheezes. ABSENT: symmetrical, unlabored Cardiovascular exam: PRESENT: irregular rhythm, +S1, +S2, tachycardia GI/Abdominal exam: PRESENT: soft. ABSENT: rebound, rigid, tenderness Neurological exam: PRESENT: altered - very somnolent. Some disorientation, awake. ABSENT: alert, aphasic Psychiatric exam: ABSENT: agitated Results Laboratory Results: 06/05/20 14:30 06/05/20 14:30 06/04/20 06/05/20 06/05/20 23:40 00:31 03:35 WBC 16.9 H RBC 3.31 L Hgb 9.7 L Hct 29.6 L MCV 89 MCH 29.3 MCHC 32.8 RDW 17.7 H Plt Count 330 Seg Neutrophils % Not Reportable Carbonic Acid 1.69 H 1.25 HCO3/H2CO3 Ratio 10:1 13:1 ABG pH 7.11 L* 7.22 L ABG pCO2 56.0 H 41.5 ABG pO2 75.0 L 82.2 ABG HCO3 17.2 L 16.5 L ABG O2 Saturation 89.3 L 93.9 L ABG Base Excess -12.1 -10.7 FiO2 40% 40% Sodium Potassium Chloride Carbon Dioxide Anion Gap BUN Creatinine Est GFR ( Amer) Glucose Calcium Total Bilirubin AST Alkaline Phosphatase Total Protein Albumin 06/05/20 06/05/20 06/05/20 04:29 04:29 14:30 WBC 14.9 H RBC 3.27 L Hgb 9.6 L Hct 28.9 L MCV 88 MCH 29.3 MCHC 33.2 RDW 17.3 H Plt Count 269 Seg Neutrophils % Not Reportable Carbonic Acid HCO3/H2CO3 Ratio ABG pH ABG pCO2 ABG pO2 ABG HCO3 ABG O2 Saturation ABG Base Excess FiO2 Sodium 132.3 L 131.7 L Potassium 4.8 4.7 Chloride 105 101 Carbon Dioxide 18 L 22 Anion Gap 9 9 BUN 64 H 65 H Creatinine 3.46 H 3.15 H Est GFR ( Amer) 15 L 17 L Glucose 158 H 239 H Calcium 8.5 8.3 L Total Bilirubin 0.3 AST 38 H Alkaline Phosphatase 55 Total Protein 5.5 L Albumin 3.0 L 06/05/20 06/05/20 06/05/20 14:30 16:23 18:16 WBC 19.7 H RBC 3.20 L Hgb 9.6 L Hct 28.8 L MCV 90 MCH 30.1 MCHC 33.4 RDW 17.3 H Plt Count 378 Seg Neutrophils % Carbonic Acid 1.85 H 1.41 H HCO3/H2CO3 Ratio 11:1 14:1 ABG pH 7.15 L* 7.27 L ABG pCO2 61.6 H 46.9 H ABG pO2 66.0 L 58.9 L ABG HCO3 21.1 21.1 ABG O2 Saturation 86.4 L 86.8 L ABG Base Excess -7.9 -5.6 FiO2 40% 40% Sodium Potassium Chloride Carbon Dioxide Anion Gap BUN Creatinine Est GFR ( Amer) Glucose Calcium Total Bilirubin AST Alkaline Phosphatase Total Protein Albumin 05/31/20 05/31/20 05/31/20 15:50 15:50 21:34 Creatine Kinase Troponin I 0.037 0.038 NT-Pro-B Natriuret Pep 7000 H 06/01/20 06/03/20 05:22 04:48 Creatine Kinase 42 Troponin I 0.030 NT-Pro-B Natriuret Pep Impressions: Chest CT 05/31/20 15:37 IMPRESSION: Marked mediastinal and right hilar adenopathy highly concerning for neoplasm such as lymphoma. Small right pleural effusion with mild associated atelectasis. Scoliosis. KUB X-Ray 06/02/20 00:00 IMPRESSION: Mild gastric distention. No other significant findings. Soft Tissue Neck CT 06/03/20 00:00 IMPRESSION: 1. No cervical adenopathy or upper airway narrowing. 2. Mediastinal adenopathy and left upper lobe mass as on 05/31/2020 CT chest. There is narrowing of the distal trachea and the mainstem bronchi due to extensive adenopathy, as on prior exam. Abdomen/Pelvis CT 06/04/20 00:00 IMPRESSION: 1. Left iliac fossa mass is presumed intramuscular hematoma. Abscess is not exc luded although the lesion does not have a particularly inflammatory appearance. Neoplasm is in the differential but felt to be less likely. 2. Other findings as outlined above. Right middle lobe infiltrate. Hip X-Ray 06/04/20 00:00 IMPRESSION: Lucencies related to the left hip. Fracture not excluded. Depending on clinical presentation, further evaluation with CT can be considered. Lumbar Spine MRI 06/04/20 00:00 IMPRESSION: 1. Scoliosis and spondylosis without suggestion of cord compression or high- grade central stenosis. Variable foraminal narrowing is generally up to moderate. 2. Complex mass in the left iliac fossa. This contains variable fluid levels, and is not clearly bowel. Differential mainly includes hematoma and abscess. Further evaluation with CT to better characterize the lesion may be warranted. Chest X-Ray 06/04/20 23:38 IMPRESSION: Redemonstration of left upper lobe mass and right pleural effusion with adjacent nonspecific opacities, better visualized on recent CT. Assessment and Plan - Diagnosis (1) Tracheal compression Is this a current diagnosis for this admission?: Yes (2) Mediastinal mass Is this a current diagnosis for this admission?: Yes (3) SVC syndrome Is this a current diagnosis for this admission?: Yes (4) Respiratory distress Is this a current diagnosis for this admission?: Yes (5) Acute kidney injury superimposed on CKD Is this a current diagnosis for this admission?: Yes (6) Oliguria Is this a current diagnosis for this admission?: Yes (7) Dysphagia Qualifiers: Dysphagia type: esophageal phase Qualified Code(s): R13.10 - Dysphagia, unspecified Is this a current diagnosis for this admission?: Yes (8) Compression of esophagus Is this a current diagnosis for this admission?: Yes (9) Retroperitoneal hematoma Is this a current diagnosis for this admission?: Yes (10) Paroxysmal atrial fibrillation with rapid ventricular response Is this a current diagnosis for this admission?: Yes (11) Left leg weakness Is this a current diagnosis for this admission?: Yes (12) Hypothyroidism Qualifiers: Hypothyroidism type: unspecified Qualified Code(s): E03.9 - Hypothyroidism, unspecified Is this a current diagnosis for this admission?: Yes (13) Coronary artery disease Qualifiers: Coronary Disease-Associated Artery/Lesion type: [place] artery [place] vs. transplanted heart: [place] heart Associated angina: without angina Qualified Code(s): I25.10 - Atherosclerotic heart disease of [place] coronary artery without angina pectoris Is this a current diagnosis for this admission?: Yes (14) Hypertension Qualifiers: Hypertension type: essential hypertension Qualified Code(s): I10 - Essential (primary) hypertension Is this a current diagnosis for this admission?: Yes - Plan Summary Summary: Patient remains in poor shape and continues to decline. We did have to notable 8 cm iliac hematoma on scan. It is clear that patient's mediastinal masses are growing at her rather fast rate raising more concern that this is lymphoma. It is evident that the CT of the neck from 3 days ago has showed progressive increasing distal tracheal compression as compared to the previous one done on admission. Patient has also started retaining CO2 and did have respiratory acidosis as well as metabolic acidosis from her renal failure. Patient is also having oliguria and has only put out 175 cc throughout yesterday and only about 200 cc today despite getting IV fluids. Did attempt a Lasix challenge. Her face is also getting puffy and she is starting to third space. I strongly suspect the patient has developed SVC syndrome which has compromised left left heart return compromising cardiac output to her kidneys and is likely what is responsible for her oliguric renal failure. She remains on the BiPAP. I have reviewed her situation with sap project manager and intubation would not be beneficial given the distal location of her tracheal compression. ADVANCED CARE PLANNING 30mins: Her prognosis is extremely poor and she will certainly not survive the next few days and likely not even the next 24hrs. I had an extensive conversation with patient's and he has decided to make patient DNR/DNI and to convert to comfort measures only within the next few hours if respiratory status stays similar. I agree with this decision and it will allow patient a more peaceful dying process. I - Time Time Spent with patient: 35 or more minutes Anticipated Discharge Disposition: comfort Anticipated Discharge Timeframe: within 24 hours
--- NOTE | 2020-06-05 20:56 | Progress Note ---
Provider Note Provider Note: CARDIOLOGY PROGRESS NOTE by Dr. Keiko Rivera on 06/05/2020. SUBJECTIVE: The patient is confused and slightly agitated. She is back on the BiPAP but she keeps pulling her mask. She continues to be wheezing and appears to be significantly short of breath. Note her and has made the patient is DNR. She is still awaiting a bed at [facility]. She has a iliopsoas hematoma and hence heparin has been discontinued. Her CT scan of the neck shows tracheal compression presents significant mediastinal lymphadenopathy. Which accounts for the patient's dysphonia and stridor. PHYSICAL EXAM examination: The patient is of normal build. She appears to be in significant respiratory distress. Selected Entries 06/05/20 06/05/20 11:55 12:00 Pulse Rate 90 Respiratory Tachypnea Pattern Blood Pressure 155/95 H Blood Pressure 115 Mean O2 Sat by Pulse 91 L Oximetry On BIPAP HEAD: Is atraumatic normocephalic. Ears nose and throat are negative. SKIN: There is no skin rashes. There is no skin lesions. There is no skin rashes. NECK: Is supple. There is no JVD. There is no accessory muscles of respiration use.. There is no lymphadenopathy. There is no goiter. Trachea central. LUNGS: There is by inspiratory stridor present. There is bilateral inspiratory and expiratory wheezing. There is scattered rhonchi. No rales of CHF. HEART: S1-S2 is heard. There is no S3 gallop. There is no S4 gallop. There is no rub. S1 is of variable intensity. There is systolic murmur left sternal border and the apex. ABDOMEN: Soft. Nontender. There is no paraspinal megaly. Bowel sounds are well heard. EXTREMITIES: Femorals are well felt. There is no femoral bruits. Leg pulses well felt. There is no pedal edema. There is no DVT or cellulitis. There is no calf tenderness. There is no cyanosis or clubbing. SERVICE OPERATIONS MANAGER: The patient is awake alert oriented x3 with no focal deficits. PSYCHIATRIC: The patient judgment insight are intact, although she is slightly anxious. Labs- All tests 24 hr 06/04/20 06/05/20 06/05/20 23:40 00:31 00:31 WBC 16.9 H RBC 3.31 L Hgb 9.7 L Hct 29.6 L MCV 89 MCH 29.3 MCHC 32.8 RDW 17.7 H Plt Count 330 Lymph % (Auto) Not Reportable [place] % (Auto) Not Reportable Eos % (Auto) Not Reportable Baso % (Auto) Not Reportable Absolute Neuts (auto) Not Reportable Absolute Lymphs (auto) Not Reportable Absolute Monos (auto) Not Reportable Absolute Eos (auto) Not Reportable Absolute Basos (auto) Not Reportable Total Counted 100 Seg Neutrophils % Not Reportable Seg Neuts % (Manual) 87 H Band Neutrophils % Lymphocytes % (Manual) 4 L Monocytes % (Manual) 9 Eosinophils % (Manual) 0 Basophils % (Manual) 0 Abs Neuts (Manual) 14.7 H Abs Lymphs (Manual) 0.7 Abs Monocytes (Manual) 1.5 H Absolute Eos (Manual) 0.0 Abs Basophils (Manual) 0.0 Nucleated RBCs Toxic Vacuolation Platelet Comment ADEQUATE Poikilocytosis 1+ Anisocytosis 1+ Tear Drop Cells SLIGHT Ovalocytes SLIGHT PT 15.8 H INR 1.24 APTT 31.7 Carbonic Acid 1.69 H HCO3/H2CO3 Ratio 10:1 ABG pH 7.11 L* ABG pCO2 56.0 H ABG pO2 75.0 L ABG HCO3 17.2 L ABG Total CO2 19.0 L ABG O2 Saturation 89.3 L ABG Base Excess -12.1 FiO2 40% Sodium Potassium Chloride Carbon Dioxide Anion Gap BUN Creatinine Est GFR ( Amer) Est GFR (MDRD) Non-Af Glucose POC Glucose Calcium Total Bilirubin Direct Bilirubin Neonat Total Bilirubin Neonat Direct Bilirubin Neonat Indirect Bili AST ALT Alkaline Phosphatase Total Protein Albumin Digoxin 06/05/20 06/05/20 06/05/20 03:35 04:29 04:29 WBC RBC Hgb Hct MCV MCH MCHC RDW Plt Count Lymph % (Auto) [place] % (Auto) Eos % (Auto) Baso % (Auto) Absolute Neuts (auto) Absolute Lymphs (auto) Absolute Monos (auto) Absolute Eos (auto) Absolute Basos (auto) Total Counted Seg Neutrophils % Seg Neuts % (Manual) Band Neutrophils % Lymphocytes % (Manual) Monocytes % (Manual) Eosinophils % (Manual) Basophils % (Manual) Abs Neuts (Manual) Abs Lymphs (Manual) Abs Monocytes (Manual) Absolute Eos (Manual) Abs Basophils (Manual) Nucleated RBCs Toxic Vacuolation Platelet Comment Poikilocytosis Anisocytosis Tear Drop Cells Ovalocytes PT 15.3 INR 1.19 APTT Carbonic Acid 1.25 HCO3/H2CO3 Ratio 13:1 ABG pH 7.22 L ABG pCO2 41.5 ABG pO2 82.2 ABG HCO3 16.5 L ABG Total CO2 17.7 L ABG O2 Saturation 93.9 L ABG Base Excess -10.7 FiO2 40% Sodium 132.3 L Potassium 4.8 Chloride 105 Carbon Dioxide 18 L Anion Gap 9 BUN 64 H Creatinine 3.46 H Est GFR ( Amer) 15 L Est GFR (MDRD) Non-Af 13 L Glucose 158 H POC Glucose Calcium 8.5 Total Bilirubin 0.3 Direct Bilirubin 0.3 Neonat Total Bilirubin Not Reportable Neonat Direct Bilirubin Not Reportable Neonat Indirect Bili Not Reportable AST 38 H ALT 16 Alkaline Phosphatase 55 Total Protein 5.5 L Albumin 3.0 L Digoxin 1.39 06/05/20 06/05/20 06/05/20 04:29 07:46 14:30 WBC 14.9 H RBC 3.27 L Hgb 9.6 L Hct 28.9 L MCV 88 MCH 29.3 MCHC 33.2 RDW 17.3 H Plt Count 269 Lymph % (Auto) Not Reportable [place] % (Auto) Not Reportable Eos % (Auto) Not Reportable Baso % (Auto) Not Reportable Absolute Neuts (auto) Not Reportable Absolute Lymphs (auto) Not Reportable Absolute Monos (auto) Not Reportable Absolute Eos (auto) Not Reportable Absolute Basos (auto) Not Reportable Total Counted 100 Seg Neutrophils % Not Reportable Seg Neuts % (Manual) 83 H Band Neutrophils % 1 L Lymphocytes % (Manual) 8 L Monocytes % (Manual) 8 Eosinophils % (Manual) 0 Basophils % (Manual) 0 Abs Neuts (Manual) 12.5 H Abs Lymphs (Manual) 1.2 Abs Monocytes (Manual) 1.2 Absolute Eos (Manual) 0.0 Abs Basophils (Manual) 0.0 Nucleated RBCs 1 Toxic Vacuolation PRESENT Platelet Comment ADEQUATE Poikilocytosis Anisocytosis 1+ Tear Drop Cells Ovalocytes PT INR APTT Carbonic Acid HCO3/H2CO3 Ratio ABG pH ABG pCO2 ABG pO2 ABG HCO3 ABG Total CO2 ABG O2 Saturation ABG Base Excess FiO2 Sodium 131.7 L Potassium 4.7 Chloride 101 Carbon Dioxide 22 Anion Gap 9 BUN 65 H Creatinine 3.15 H Est GFR ( Amer) 17 L Est GFR (MDRD) Non-Af 14 L Glucose 239 H POC Glucose 168 H Calcium 8.3 L Total Bilirubin Direct Bilirubin Neonat Total Bilirubin Neonat Direct Bilirubin Neonat Indirect Bili AST ALT Alkaline Phosphatase Total Protein Albumin Digoxin 06/05/20 06/05/20 06/05/20 14:30 16:23 18:16 WBC 19.7 H RBC 3.20 L Hgb 9.6 L Hct 28.8 L MCV 90 MCH 30.1 MCHC 33.4 RDW 17.3 H Plt Count 378 Lymph % (Auto) [place] % (Auto) Eos % (Auto) Baso % (Auto) Absolute Neuts (auto) Absolute Lymphs (auto) Absolute Monos (auto) Absolute Eos (auto) Absolute Basos (auto) Total Counted Seg Neutrophils % Seg Neuts % (Manual) Band Neutrophils % Lymphocytes % (Manual) Monocytes % (Manual) Eosinophils % (Manual) Basophils % (Manual) Abs Neuts (Manual) Abs Lymphs (Manual) Abs Monocytes (Manual) Absolute Eos (Manual) Abs Basophils (Manual) Nucleated RBCs Toxic Vacuolation Platelet Comment Poikilocytosis Anisocytosis Tear Drop Cells Ovalocytes PT INR APTT Carbonic Acid 1.85 H 1.41 H HCO3/H2CO3 Ratio 11:1 14:1 ABG pH 7.15 L* 7.27 L ABG pCO2 61.6 H 46.9 H ABG pO2 40% 40% Sodium Potassium Chloride Carbon Dioxide Anion Gap BUN Creatinine Est GFR ( Amer) Est GFR (MDRD) Non-Af Glucose POC Glucose Calcium Total Bilirubin Direct Bilirubin Neonat Total Bilirubin Neonat Direct Bilirubin Neonat Indirect Bili AST ALT Alkaline Phosphatase Total Protein Albumin Digoxin Chest X-Ray 05/31/20 14:34 IMPRESSION: Right hilar fullness again noted. Recommend CT for more complete characterization. Minimal right basilar opacities, possibly atelectasis or infection. Chest CT 05/31/20 15:37 IMPRESSION: Marked mediastinal and right hilar adenopathy highly concerning for neoplasm such as lymphoma. Small right pleural effusion with mild associated atelectasis. Scoliosis. KUB X-Ray 06/02/20 00:00 IMPRESSION: Mild gastric distention. No other significant findings. Soft Tissue Neck CT 06/03/20 00:00 IMPRESSION: 1. No cervical adenopathy or upper airway narrowing. 2. Mediastinal adenopathy and left upper lobe mass as on 05/31/2020 CT chest. There is narrowing of the distal trachea and the mainstem bronchi due to extensive adenopathy, as on prior exam. Abdomen/Pelvis CT 06/04/20 00:00 IMPRESSION: 1. Left iliac fossa mass is presumed intramuscular hematoma. Abscess is not excluded although the lesion does not have a particularly inflammatory appearance. Neoplasm is in the differential but felt to be less likely. 2. Other findings as outlined above. Right middle lobe infiltrate. Hip X-Ray 06/04/20 00:00 IMPRESSION: Lucencies related to the left hip. Fracture not excluded. Depending on clinical presentation, further evaluation with CT can be considered. Lumbar Spine MRI 06/04/20 00:00 IMPRESSION: 1. Scoliosis and spondylosis without suggestion of cord compression or high- grade central stenosis. Variable foraminal narrowing is generally up to moderate. 2. Complex mass in the left iliac fossa. This contains variable fluid levels, and is not clearly bowel. Differential mainly includes hematoma and abscess. Further evaluation with CT to better characterize the lesion may be warranted. Chest X-Ray 06/04/20 23:38 IMPRESSION: Redemonstration of left upper lobe mass and right pleural effusion with adjacent nonspecific opacities, better visualized on recent CT. IMPRESSION/RECOMMENDATION: 1. Altered mental status and delirium most likely secondary to infection and hypoxemia. The patient at present is awake and alert. This is most likely the effect of Ativan. 2. Atrial fibrillation: At present heart rate well controlled on Cardizem drip of 5 mg/h. The patient is also will be getting digoxin 0.125 mg IV push every 48 hours. 3. Mediastinal and hilar lymphadenopathy of significance: The findings needs to be ruled out. Hematology consult requested. 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 4. COPD with acute exacerbation: Patient still with significant wheezing. Continue steroids and bronchodilators and antibiotics 5. Dysphonia and stridor: CT of the neck shows compression of the trachea. Hence mediast 6. Right lower lobe infiltrate with a small pleural effusion:: Possible pneumonia. Patient is on antibiotics. 7. Hypertension: Patient blood pressure is well controlled continue current medication. 8. Left iliac muscle hematoma. Heparin has been stopped there is also is spondylosis without cord compression.. 9. Chronic kidney disease stage IV: Recommend nephrology consult. 10. Coronary artery disease: History of old myocardial infarction and history of coronary bypass graft surgery: No evidence of no evidence of acute coronary syndrome or non-ST elevation DC. No anginal symptoms. Continue current treatment. 11.Hypothyroidism: Continue current replacement as thyroid functions tests suggest the patient be euthyroid on current replacement. This is definitely not the cause of the patient's atrial fibrillation with rapid ventricular response. Medications reviewed. . Medical regiment and management plan discussed with attending provider on the case. Patient still awaiting for a bed for transfer to [facility] discussed with patient patient's . Medical decision making is of high complexity. 40 minutes spent as patient more than 50% time spent in direct patient care. Will follow.
[2020-06-05] MEDS: ASPIRIN 81 MG TABLET, ENT COATED PO SCH (21:21)
[2020-06-05] MEDS: DIGOXIN INJ 0.5 MG/2 ML AMPULE IV SCH (21:21)
[2020-06-06] MEDS: DILTIAZEM HCL/D5W 125 MG/125 ML RTUINJ IV PRN (03:42)
[2020-06-06] MEDS: LEVALBUTEROL HCL NEB 1.25 MG/3 ML AMPUL NEB SCH ×3 (03:57→11:16)
[2020-06-06] MEDS: METHYLPREDNISOLONE INJ 40 MG/1 ML SDV IV SCH (06:17)
[2020-06-06 08:47] LABS: VENOUS BLOOD BASE EXCESS -6.2 mmol/L; VENOUS BLOOD HCO3 22.8 mmol/L (20-32)
[2020-06-06] MEDS: IPRATROPIUM BROMIDE 0.02% NEB 0.5 MG/2.5 ML AMPUL NEB SCH (08:50)
[2020-06-06] MEDS: BUDESONIDE NEB 0.5 MG/2 ML AMPUL NEB SCH (08:50)
[2020-06-06 08:54] LABS: HEMATOCRIT 30.4 % (36.0-47.0); HEMOGLOBIN 10.1 g/dL (12.0-15.5); MEAN CORPUSCULAR HEMOGLOBIN 29.5 pg (27.0-33.4); MEAN CORPUSCULAR HGB CONC 33.1 g/dL (32.0-36.0); MEAN CORPUSCULAR VOLUME 89 fl (80-97); PLATELET COUNT 314 10^3/uL (150-450); RED BLOOD COUNT 3.42 10^6/uL (3.72-5.28); RED CELL DISTRIBUTION WIDTH 17.2 % (11.5-14.0); WHITE BLOOD COUNT 16.7 10^3/uL (4.0-10.5)
[2020-06-06] MEDS ORDERED: LABETALOL HCL INJ 20 MG/4 ML DISP.SYRIN IV PRN (08:55)
[2020-06-06 08:57] LABS: VENOUS BLOOD PH 7.18 (7.30-7.42)
[2020-06-06 09:07] LABS: ALBUMIN 3.5 g/dL (3.5-5.0); ALKALINE PHOSPHATASE 68 U/L (38-126); ANION GAP 9 (5-19); ASPARTATE AMINO TRANSFERASE 47 U/L (14-36); BILIRUBIN,DIRECT 0.5 mg/dL (0.0-0.4); BILIRUBIN,TOTAL 0.5 mg/dL (0.2-1.3); BLOOD UREA NITROGEN 69 mg/dL (7-20); CALCIUM 8.7 mg/dL (8.4-10.2); CARBON DIOXIDE 23 mmol/L (22-30); CHLORIDE 101 mmol/L (98-107); GLUCOSE 182 mg/dL (75-110); POTASSIUM 4.8 mmol/L (3.6-5.0); TOTAL PROTEIN 6.1 g/dL (6.3-8.2)
[2020-06-06 09:27] LABS: ABSOLUTE MONOCYTES # (MANUAL) 0.7 10^3/uL (0.1-1.4); BAND NEUTROPHILS % (MANUAL) 2 % (3-5); BASOPHILS % (MANUAL) 0 % (0-2); EOSINOPHILS % (MANUAL) 0 % (0-6); LYMPHOCYTES % (MANUAL) 0 % (13-45); MONOCYTES % (MANUAL) 4 % (3-13); SEGMENTED NEUTROPHILS % (MAN) 94 % (42-78); TOTAL CELLS COUNTED 100
[2020-06-06 09:28] LABS: ANISOCYTOSIS 1+; OVALOCYTES 1+; PLATELET COMMENT ADEQUATE
[2020-06-06] MEDS ORDERED: LORAZEPAM INJ 2 MG/1 ML VIAL IV PRN ×2 (10:09→11:22)
--- NOTE | 2020-06-06 10:16 | Progress Note ---
Provider Note Provider Note: Patient having worsening respiratory acidosis despite high settings on Bipap. Her ventilation is worsening. Very prominent veins on face suggestive of SVC syndrome. She was lucid today during our conversation and states that she is having a difficult time breathing and wants to be made comfort care only. Primary nurse present at bedside during our conversation. I have informed her who is in agreement and will be in the hospital shortly to say his goodbye.
[2020-06-06] MEDS: MORPHINE SULFATE 10 MG/ML INJ IV PRN ×2 (10:31→11:33)
[2020-06-06 12:18] VITALS: BP 151/53
--- NOTE | 2020-06-06 16:41 | Death Summary ---
Summary Date : 06/06/20 Time of :: 12:20 Autopsy: No Resuscitation Status: Do Not Resuscitate - Final Diagnosis (1) Acute respiratory failure with hypoxia and hypercapnia Is this a current diagnosis for this admission?: Yes (2) Tracheal compression Is this a current diagnosis for this admission?: Yes (3) Mediastinal mass Is this a current diagnosis for this admission?: Yes (4) SVC syndrome Is this a current diagnosis for this admission?: Yes (5) Respiratory distress Is this a current diagnosis for this admission?: Yes (6) Acute kidney injury superimposed on CKD Is this a current diagnosis for this admission?: Yes (7) Oliguria Is this a current diagnosis for this admission?: Yes (8) Dysphagia Is this a current diagnosis for this admission?: Yes (9) Compression of esophagus Is this a current diagnosis for this admission?: Yes (10) Retroperitoneal hematoma Is this a current diagnosis for this admission?: Yes (11) Paroxysmal atrial fibrillation with rapid ventricular response Is this a current diagnosis for this admission?: Yes (12) Left leg weakness Is this a current diagnosis for this admission?: Yes (13) Hypothyroidism Is this a current diagnosis for this admission?: Yes (14) Coronary artery disease Is this a current diagnosis for this admission?: Yes (15) Hypertension Is this a current diagnosis for this admission?: Yes Hospital Course:: Patient was admitted to the hospital for evaluation of shortness of breath which had been progressive over the past several weeks. CT scan revealed large bulky mediastinal adenopathy and right hilar adenopathy as well as left upper lobe mass. There was high suspicion for lymphoma given the adenopathy. Other possible differential include lung cancer with metastatic spread to the lymph nodes. On CT scan, the mediastinal/hilar mass was also noted to be encroaching on her right main bronchus, displacing her esophagus. Patient was noted to have significant wheezing on presentation. She has extensive smoking history. She was treated with frequent bronchodilators and steroids but without improvement. She also received antibiotics. Patient had an extensive complicated stay in the hospital complicated by tracheal compression from bulky and enlarging mediastinal and right hilar lymph nodes, esophageal dysphagia from mediastinal mass compression of the esophagus, A. fib with RVR due to her respiratory distress, SVC syndrome, Oliguric acute renal failure superimposed on CKD stage V. Patient was seen by multiple specialists including nephrology, oncology and cardiology. Planned for Bronch with biopsy and radiation. Also has been on waitlist for [place]. She was also seen by the paper bag press operator here a couple of times who recommended against intubation because patient's tracheal compression was distal recommended that intubation would not help. Ultimately, patient continued to have worsening respiratory failure on NiPPV due to worsening tracheal compression with SVC syndrome from her enlarging mediastinal mass which was suspected to be lymphoma. Prognosis was extremely poor in light of patient's tracheal compression, SVC syndrome, comorbidities, age and renal failure. Today, we further discussed goals of care with patient regarding intubation or comfort care. Patient opted for comfort care. Her came in to say his goodbyes. Patient was made comfortable. Patient at 12:20 PM today. was at bedside. Condolences offered. I filled the certificate.
== END 2020-06-06 15:19 | DRG 189 ==
LOC: ER 14:00 → EH 19:49 → 4W 23:45 → 5TH 06-01 15:07 → 3S 06-01 17:08 → 5 06-02 21:03
PROVIDERS: ADMIT Hospitalist; ATTEND Internal Medicine
PROC: 5A09457 Assistance with Respiratory Ventilation, 24-96 Consecutive Hours, Continuous Positive Airway Pressure (ICD-10-PCS; principal; 2020-06-01)
DX: J96.01 Acute respiratory failure with hypoxia (principal); K66.1 Hemoperitoneum; N17.9 Acute kidney failure, unspecified; I87.1 Compression of vein; N18.4 Chronic kidney disease, stage 4 (severe); J44.1 Chronic obstructive pulmonary disease with (acute) exacerbation; I48.11 Longstanding persistent atrial fibrillation; J44.0 Chronic obstructive pulmonary disease with (acute) lower respiratory infection; J96.02 Acute respiratory failure with hypercapnia; J39.8 Other specified diseases of upper respiratory tract; R91.8 Other nonspecific abnormal finding of lung field; R34 Anuria and oliguria; R13.10 Dysphagia, unspecified; K22.2 Esophageal obstruction; I48.0 Paroxysmal atrial fibrillation; Z66 Do not resuscitate; E03.9 Hypothyroidism, unspecified; I25.10 Atherosclerotic heart disease of native coronary artery without angina pectoris; I12.9 Hypertensive chronic kidney disease with stage 1 through stage 4 chronic kidney disease, or unspecified chronic kidney disease; E78.5 Hyperlipidemia, unspecified; D63.1 Anemia in chronic kidney disease; E78.01 Familial hypercholesterolemia; K21.9 Gastro-esophageal reflux disease without esophagitis; R59.1 Generalized enlarged lymph nodes; I25.2 Old myocardial infarction; Z20.822 Contact with and (suspected) exposure to COVID-19; Z87.891 Personal history of nicotine dependence; Z95.1 Presence of aortocoronary bypass graft; Z79.899 Other long term (current) drug therapy; Z91.041 Radiographic dye allergy status; Z88.2 Allergy status to sulfonamides; Z82.49 Family history of ischemic heart disease and other diseases of the circulatory system; Z84.1 Family history of disorders of kidney and ureter; Z79.01 Long term (current) use of anticoagulants; Z79.890 Hormone replacement therapy; Z79.82 Long term (current) use of aspirin; Z78.1 Physical restraint status
CPT/HCPCS: 0202U; 36415; 36600; 70490; 71045; 71250; 72148; 74018; 74176; 80048; 80053; 80162; 81001; 82550; 82803; 82962; 83735; 83880; 84100; 84439; 84443; 84481; 84484; 85025; 85027; 85379; 85610; 85730; 87040; 87070; 93005; 93010; 94640; 94660; 96374; 99285; J0456; J0696; J1100; J1160; J1644; J1940; J1956; J2060; J2270; J2405; J2920; J3370; J3490; J7030; J7060; J7614; J7644